=== PATIENT | female | born 1970 | race Caucasian/White ===

== ENCOUNTER 2016-09-22 12:44 | Inpatient (IN) | payer BC, MEDICAID ==
[~2016-09-22] VITALS: Ht 154.9 cm; Wt 103.0 kg
[~2016-09-22 12:44] MED LIST: ALBU17AE26 IH; ASPI325T2 PO; ESCI10TA PO; INSU100V9 SUBCUT; INSU10VI4 SUBCUT; INSULIN; LORA1TAB PO; METF-305 PO; OMEP40CA33 PO; SIMV40TA2 PO; TOP25 PO
[2016-09-22 12:51] VITALS: BP 115/67; PULSE 94; RESP 20; TEMP 98.2; O2SAT 97
[2016-09-22 14:28] LABS: BASOPHILS # (AUTO) 0.1 K/uL (0.0-0.2); EOSINOPHILS # (AUTO) 0.4 K/uL (0.0-0.4); EOSINOPHILS % (AUTO) 5.1 % (0.0-4.0); HEMATOCRIT 36.5 % (36-48); HEMOGLOBIN 12.7 g/dL (12.0-16.0); LYMPHOCYTES # (AUTO) 2.3 K/uL (1.0-5.5); MEAN CORPUSCULAR HEMOGLOBIN 30 pg (27-31); MEAN CORPUSCULAR HGB CONC 35 % (32-36); MEAN CORPUSCULAR VOLUME 85 fL (79.0-98.0); MONOCYTES # (AUTO) 0.6 K/uL (0.0-1.0); MONOCYTES % (AUTO) 6.6 % (1.7-9.3); NEUTROPHILS # (AUTO) 5.2 K/uL (1.8-7.7); NEUTROPHILS % (AUTO) 60.3 % (40.0-70.0); PLATELET COUNT (AUTO) 201 K/uL (130-430); RED CELL DISTRIBUTION WIDTH 12.8 % (9.0-15.0); WHITE BLOOD COUNT (AUTO) 8.6 K/uL (4.8-10.8)
[2016-09-22 14:29] LABS: CALCIUM 8.5 mg/dL (8.4-11.0); CREATININE 0.57 mg/dL (0.55-1.30)
[2016-09-22 14:33] LABS: ALBUMIN 3.1 g/dL (3.4-4.8); TOTAL BILIRUBIN 0.3 mg/dL (0.0-1.0); TOTAL PROTEIN, SERUM 6.8 g/dL (6.4-8.3)
[2016-09-22 14:46] LABS: INR 0.9 (0.8-1.2); PROTHROMBIN TIME 10.3 SECS (9.5-12.5)
[2016-09-22] MEDS ORDERED: ASPIRIN 81 MG TAB.CHEW PO ONE (17:45)
[2016-09-22 18:29] VITALS: BP 111/55; PULSE 90; RESP 18; TEMP 97; O2SAT 100
[2016-09-22 20:13] VITALS: BP 118/58; PULSE 90; RESP 17; TEMP 97.9; O2SAT 100
[2016-09-22] MEDS ORDERED: INSULIN GLARGINE 100 UNITS/ML 10 ML VIAL SUBCUT SCH (21:00)
[2016-09-23] VITALS (8 sets, daily range): BP systolic 92–114; BP diastolic 51–64; PULSE 84–101; RESP 16–20; TEMP 96.6–99; O2SAT 95–100
[2016-09-23] MEDS: ACETAMINOPHEN 650 MG/20.3 ML UDC PO PRN ×2 (01:56→08:05)
[2016-09-23] MEDS: DEXTROSE 50% JECT 50 ML DISP.SYRIN IVP PRN (06:21)
[2016-09-23] MEDS ORDERED: NS 500 ML IV ONE (07:00)
[2016-09-23] MEDS: ATORVASTATIN 20 MG TABLET PO SCH (08:06)
[2016-09-23] MEDS: OMEPRAZOLE 20 MG CAPSULE.DR (PriLOSEC) PO SCH (08:06)
[2016-09-23] MEDS: ASPIRIN 325 MG TABLET (ECOTRIN) PO SCH (08:06)
[2016-09-23] MEDS ORDERED: MORPHINE 4 MG/ML INJ. SYRINGE IVP PRN (08:15)
[2016-09-23] MEDS ORDERED: ACETAMINOPHEN 325 MG TABLET PO PRN (08:15)
[2016-09-23] MEDS ORDERED: MORPHINE 2 MG/ML INJ. SYRINGE IVP PRN (08:15)
[2016-09-23] MEDS ORDERED: ALBUTEROL SULFATE 0.083% 2.5 MG/3 ML VIAL.NEB INH PRN (08:15)
[2016-09-23] MEDS ORDERED: IPRATROPIUM BROM 0.5 MG/2.5 ML VIAL.NEB (ATROVENT) INH PRN (08:15)
[2016-09-23] MEDS ORDERED: LORazepam 1 MG TABLET PO ONE (09:15)
[2016-09-23] MEDS: ALBUTEROL SULFATE 0.083% 2.5 MG/3 ML VIAL.NEB INH SCH ×2 (10:53→19:40)
[2016-09-23] MEDS: IPRATROPIUM BROM 0.5 MG/2.5 ML VIAL.NEB (ATROVENT) INH SCH ×2 (10:53→19:40)
[2016-09-23] MEDS: INSULIN REGULAR, HUMAN 100 UNITS/ML, 10 ML VIAL (novoLIN R) SUBCUT PRN ×2 (11:14→16:55)
[2016-09-24] VITALS: BP 101/56; PULSE 94; RESP 18; TEMP 98.7; O2SAT 99
[2016-09-24] MEDS: INSULIN REGULAR, HUMAN 100 UNITS/ML, 10 ML VIAL (novoLIN R) SUBCUT PRN ×4 (00:18→17:24)
[2016-09-24 04:00] VITALS: BP 99/54; PULSE 96; RESP 18; TEMP 97.9; O2SAT 100
[2016-09-24] MEDS: DEXTROSE 50% JECT 50 ML DISP.SYRIN IVP PRN (05:54)
[2016-09-24] MEDS: IPRATROPIUM BROM 0.5 MG/2.5 ML VIAL.NEB (ATROVENT) INH SCH ×3 (07:11→15:22)
[2016-09-24] MEDS: ALBUTEROL SULFATE 0.083% 2.5 MG/3 ML VIAL.NEB INH SCH ×3 (07:11→15:22)
[2016-09-24 08:20] VITALS: BP 100/52; PULSE 93; RESP 19; TEMP 97.4; O2SAT 99
[2016-09-24] MEDS: OMEPRAZOLE 20 MG CAPSULE.DR (PriLOSEC) PO SCH (08:46)
[2016-09-24] MEDS: ASPIRIN 325 MG TABLET (ECOTRIN) PO SCH (08:46)
[2016-09-24] MEDS: ATORVASTATIN 20 MG TABLET PO SCH (08:46)
[2016-09-24] MEDS ORDERED: POLYETHYLENE GLYCOL 3350, 17 GM/ POWD.PACK PO ONE (13:30)
[2016-09-24 15:33] VITALS: BP 103/50; PULSE 102; RESP 20; TEMP 98.3; O2SAT 99
[2016-09-24 18:08] VITALS: BP 103/48; PULSE 106; RESP 18; TEMP 98.3; O2SAT 99
[2016-09-25] MEDS ORDERED: POLYETHYLENE GLYCOL 3350, 17 GM/ POWD.PACK PO SCH (09:00)
[2017-03-18] MEDS ORDERED: CYCL-10 PO (20:42)
[2017-03-18] MEDS ORDERED: PRO40 PO (20:42)
== END 2016-09-24 18:44 | disposition home or self-care (01) | DRG 66 ==
LOC: SED 12:44 → STU 17:49
PROVIDERS: ADMIT Internal Medicine Hospice and Palliative Medicine; ATTEND Internal Medicine Hospice and Palliative Medicine
DX: I63.9 Cerebral infarction, unspecified (principal); E11.9 Type 2 diabetes mellitus without complications; G35 Multiple sclerosis; I10 Essential (primary) hypertension; J45.909 Unspecified asthma, uncomplicated; K21.9 Gastro-esophageal reflux disease without esophagitis; Z88.8 Allergy status to other drugs, medicaments and biological substances; Z79.82 Long term (current) use of aspirin
CPT/HCPCS: 36415; 70450-TC; 70551; 71010; 80053; 80061; 82962; 83880; 84484; 85025; 85306; 85379; 85610-TC; 85651-TC; 85730-TC; 93005; 93880; 94640; 94760; 99285; J1815; J7040

== ENCOUNTER 2016-10-22 12:30 | Inpatient (IN) | payer BC, MEDICAID ==
[~2016-10-22] VITALS: Ht 154.9 cm; Wt 109.8 kg
[2016-10-22 12:34] VITALS: BP 154/79; PULSE 109; RESP 22; TEMP 97.9; O2SAT 97
--- NOTE | 2016-10-22 12:41 | NUR ---
Patient to ER bed 4 to gown for evaluation. Side rails up. Report given to CORDELL TRINIDAD.
--- NOTE | 2016-10-22 12:41 | NUR ---
Pt report received from AMOS Ulloa. Pt with SOB and coughing x 1 month but worse today. BBS clear, even, tachypea noted. Pt talks in short sentences with coughing. Pt also c/o chest pain and states that it is from the excessive coughing. SPO2 97% RA.
--- NOTE | 2016-10-22 12:50 | NUR ---
Dr. Juarez at bedside to assess pt.
--- NOTE | 2016-10-22 13:00 | NUR ---
# 20 gauge angiocath placed to RAC. Use of asceptic technique. Opsite placed over site. Blood return noted. Blood for lab drawn from site. Flushed with 10 cc of normal saline. No evidence of infiltration noted. Patient tolerated well.
[2016-10-22] MEDS ORDERED: KETOROLAC TROMETHAMINE 30 MG VIAL IVP ONE (13:15)
[2016-10-22] MEDS ORDERED: methylPREDNISolone SOD SUCC/PF 62.5 MG/ML VIAL IVP ONE (13:15)
[2016-10-22] MEDS ORDERED: IPRATROPIUM/ALBUTEROL SULFATE 3 ML AMPUL.NEB INH ONE ×3 (13:15→17:45)
[2016-10-22] MEDS ORDERED: NACL 0.9% 1,000 ML IV ONE ×2 (13:15→17:45)
[2016-10-22 13:27] LABS: BILIRUBIN,URINE NEGATIVE (NEGATIVE); BLOOD, URINE NEGATIVE (NEGATIVE); CLARITY/URINE SL HAZY (CLEAR); COLOR,URINE YELLOW (YELLOW); GLUCOSE,URINE 3+ (NEGATIVE); KETONES,URINE NEGATIVE (NEGATIVE); LEUKOCYTE ESTERASE ,URINE NEGATIVE (NEGATIVE); NITRITE, URINE NEGATIVE (NEGATIVE); PROTEIN URINE NEGATIVE (NEGATIVE); UROBILINOGEN,URINE 0.2 (0.2-1.0)
[2016-10-22 13:35] LABS: BACTERIA,URINE RARE /HPF (None Seen); RBC,URINE NONE SEEN /HPF (0-3); WBC,URINE 0-3 /HPF (0-3)
[2016-10-22 13:40] LABS: BASOPHILS % (AUTO) 0.5 % (0.0-2.0); EOSINOPHILS # (AUTO) 1.3 K/uL (0.0-0.4); HEMOGLOBIN 13.3 g/dL (12.0-16.0); LYMPHOCYTES # (AUTO) 1.8 K/uL (1.0-5.5); LYMPHOCYTES % (AUTO) 18.1 % (20.5-51.5); MEAN CORPUSCULAR HEMOGLOBIN 30 pg (27-31); MEAN CORPUSCULAR HGB CONC 34 % (32-36); MEAN CORPUSCULAR VOLUME 87 fL (79.0-98.0); MONOCYTES # (AUTO) 0.5 K/uL (0.0-1.0); MONOCYTES % (AUTO) 4.8 % (1.7-9.3); NEUTROPHILS # (AUTO) 6.3 K/uL (1.8-7.7); NEUTROPHILS % (AUTO) 63.6 % (40.0-70.0); PLATELET COUNT (AUTO) 201 K/uL (130-430); RED BLOOD CELL COUNT(AUTO) 4.49 MIL/uL (4.2-6.2); RED CELL DISTRIBUTION WIDTH 12.8 % (9.0-15.0); WHITE BLOOD COUNT (AUTO) 9.9 K/uL (4.8-10.8)
[2016-10-22 13:45] LABS: ANION GAP 6 (5-15); CALCIUM 8.6 mg/dL (8.4-11.0); CHLORIDE 102 mmol/L (98-107); CREATININE 0.63 mg/dL (0.55-1.30); GLUCOSE 298 mg/dL (70-99); POTASSIUM 4.1 mmol/L (3.5-5.1); SODIUM SERUM 138 mmol/L (136-145); UREA NITROGEN, BLOOD 14 mg/dL (8-21)
[2016-10-22 13:49] LABS: GFR AFRICAN AMERICAN 131 mL/min (>90)
[2016-10-22 13:54] LABS: ALANINE AMINOTRANSFERASE 12 U/L (12-78); ALBUMIN 3.4 g/dL (3.4-4.8); ASPARTATE AMINOTRANSFERASE 14 U/L (10-37); TOTAL BILIRUBIN 0.2 mg/dL (0.0-1.0); TOTAL PROTEIN, SERUM 7.3 g/dL (6.4-8.3)
[2016-10-22] MEDS ORDERED: MORPHINE SULFATE 10 MG/ML VIAL IVP ONE (16:15)
--- NOTE | 2016-10-22 16:53 | NUR ---
pt medicated per md order, allergies acknowledged. dr pina at bedside reassessing pt and discussing POC
--- NOTE | 2016-10-22 17:30 | NUR ---
Pt anxious with persistent cough. Dr. Juarez notified. RT at bedside to give breathing tx.
[2016-10-22] MEDS ORDERED: DIAZEPAM 10 MG/2 ML DISP.SYRIN IVP ONE (18:00)
[2016-10-22] MEDS ORDERED: IOHEXOL 350 mgI/mL, 150 ML INFUS..BTL IV ONE (18:04)
--- NOTE | 2016-10-22 18:20 | NUR ---
Pt resting quietly with eyes closed, even and non-labored respirations. SPO2 98% RA.
--- NOTE | 2016-10-22 18:40 | NUR ---
Pt to CT via stretcher.
--- NOTE | 2016-10-22 19:17 | NUR ---
Pt report given to AMOS Haley.
[2016-10-22] MEDS ORDERED: LIP10 PO (21:00)
[2016-10-22] MEDS ORDERED: FURO-150 PO (21:00)
[2016-10-22] MEDS ORDERED: ALBMDI INH (21:00)
[2016-10-22] MEDS ORDERED: ALBU8.5H8 INH (21:00)
--- NOTE | 2016-10-22 21:10 | NUR ---
Pt transferred to [facility] via gurney. no s/s IV infiltration or distress. Placed in bed 135. Report given to Renard. All care endorsed.
--- NOTE | 2016-10-22 21:23 | NUR ---
ADMISSION NOTE Received patient from ER via rdel under the care of Dr Plaza. Patient admitted with diagnosis of Asthma Exacerbation . Patient is awake, alert, oriented X 4. Patient oriented to hospital room, call light, toileting, pain management and safety-teach back done. Patient informed that her nurse will be Renard and that her room number is 119B. Call light within reach. Will monitor patient condition.
[2016-10-22 21:30] VITALS: BP 129/73; PULSE 94; RESP 18; RESP 20; TEMP 97.3; O2SAT 96
--- NOTE | 2016-10-22 21:30 | NUR ---
pt.arrival.pt.admitted.dyspnea upon excertion.o2 applied:2l/min via nasal cannulae.language:singaporean primary and pt's preferred language:pt.presents fluency greek.v/s assessed.values w/in normal limits:r/r:20bpm.call light placed w/in pt's reach.
--- NOTE | 2016-10-22 22:00 | NUR ---
pt.assessed.pt.presents stable status.breathing character:dyspnea,deep depth,tachypnea.o2 sat% assessed: pt.presents o2 sat%=96%.will provide food 2 the pt.blood glucose assessed:280mg/dl.call light placed w/in pt's reach.
[2016-10-22 22:39] VITALS: BP 129/73; PULSE 94; RESP 18; TEMP 97.3; O2SAT 98
--- NOTE | 2016-10-22 23:00 | NUR ---
pt.assessed.i inquired if the pt;s presented any request.pt.requested snacks.i have provided the pt's snacks. no other requests @this hour.breathing pattern calm.call light w/in pt's reach.
[2016-10-22] MEDS: INSULIN REGULAR, HUMAN 100 UNITS/ML, 10 ML VIAL (novoLIN R) SUBCUT PRN (23:51)
--- NOTE | 2016-10-23 | NUR ---
pt.assessed.pt.presents calm affect.i have re-established the iv access:location:rt.forearm. o2 sat% assessed:96%@2l/min via nasal cannulae.call light w/in pt's reach.
[2016-10-23] MEDS: ALBUTEROL SULFATE 0.083% 2.5 MG/3 ML VIAL.NEB INH SCH ×6 (00:06→19:14)
[2016-10-23] MEDS: IPRATROPIUM BROM 0.5 MG/2.5 ML VIAL.NEB (ATROVENT) INH SCH ×7 (00:07→19:14)
[2016-10-23 00:16] VITALS: BP 122/60; PULSE 96; RESP 19; TEMP 96.5; O2SAT 96
[2016-10-23] MEDS: methylPREDNISolone SOD SUCC/PF 62.5 MG/ML VIAL IVP SCH ×2 (00:50→05:27)
--- NOTE | 2016-10-23 02:00 | NUR ---
pt.assessed.pt.presents quiescent affect;calm,asleep.breathing pattern calm.no distress/discomfort manifested. call light w/in pt's reach.
[2016-10-23 02:54] VITALS: BP 122/60; PULSE 96
--- NOTE | 2016-10-23 03:00 | NUR ---
pt.presents coughing episodes.i inquired i pt.required hhn tx.pt.stated yes.i have called respiratory dept;apprised of the pt's status:breathing and possible hhn tx. call light w/in pt's reach.
[2016-10-23 03:38] VITALS: BP 118/63; PULSE 98; RESP 19; TEMP 96.5; O2SAT 97
--- NOTE | 2016-10-23 04:00 | NUR ---
pt.assessed.pt.presents quiescent affect;calm,asleep.o2 sat assessed:96%@2l/min via nc.v/s assessed. call light w/in pt's reach:breathing pattern presents dyspnea.
--- NOTE | 2016-10-23 05:47 | NUR ---
pt.assessed.blood glucose assessed:389mg/dl.solumedrol administered.pt.returned to somnolent state:02 sat% 96 %. no request @this hour.zackary light w/in pt's reach.
[2016-10-23] MEDS: INSULIN REGULAR, HUMAN 100 UNITS/ML, 10 ML VIAL (novoLIN R) SUBCUT PRN ×3 (06:18→18:31)
--- NOTE | 2016-10-23 06:31 | NUR ---
slab grinder presented me w/ the correct swab 4 the collection of the influenzae swab.i have collect the sample:and the mrsa;nares swab.i have administered insulin:8-units;regular per slidng scale.call light placed w/in pt's reach.
--- NOTE | 2016-10-23 08:00 | NUR ---
Patient is A/Ox4, ambulatory. Patient is SOB, relieved by breathing treatment. Iv on left arm, #22, SL. On O2-2l, satting in the mid 90s%. Instructed patient to use call light for needs; bed at lowest position, call light in place, will continue to monitor.
[2016-10-23] MEDS: cefTRIAXone 1 GM IVPB PREMIX 50 ML IV SCH (08:56)
--- NOTE | 2016-10-23 10:00 | NUR ---
Patient is resting, no signs of distress noted. Will continue to monitor.
[2016-10-23] MEDS: HYDROcodone/ACETAMIN 5-325 MG TAB (NORCO/ VICODIN) PO PRN ×2 (11:00→18:26)
[2016-10-23] MEDS: ATORVASTATIN 10 MG TABLET PO SCH (11:00)
[2016-10-23] MEDS: OMEPRAZOLE 20 MG CAPSULE.DR (PriLOSEC) PO SCH (11:01)
[2016-10-23] MEDS: FUROSEMIDE 20 MG TABLET PO SCH (11:01)
[2016-10-23] MEDS: INSULIN NPH/REGULAR 70-30, 100 UNITS/ML, 10 ML VIAL SUBCUT SCH ×2 (11:14→18:33)
--- NOTE | 2016-10-23 12:05 | NUR ---
Patient bs 417. Insulin is given subcut according to sliding scale.
[2016-10-23 12:32] VITALS: BP 130/89; PULSE 108; RESP 20; TEMP 98.6; O2SAT 100
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
[2016-10-23 14:13] VITALS: Ht 154.9 cm; Wt 109.8 kg
--- NOTE | 2016-10-23 14:48 | NUR ---
:Patient is resting, no signs of distress noted at this time.
[2016-10-23 16:41] VITALS: BP 101/50; PULSE 100; RESP 19; TEMP 98.7; O2SAT 100
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
--- NOTE | 2016-10-23 19:15 | NUR ---
Patient is c/o SOB. RT is ordered.
--- NOTE | 2016-10-23 19:55 | NUR ---
initial nursing notes: Patient is awake. Patient's IV access on the right forearm intact. Patient has shortness of breath when ambulating from bed to the bathroom. Patient is on 2L/min oxygen via nasal cannula.
[2016-10-23 20:13] VITALS: BP 104/53; PULSE 105; RESP 16; TEMP 97.2; O2SAT 98
[2016-10-23] MEDS ORDERED: guaiFENesin/D-METHORPHAN HB 118 ML SUGAR FREE PO PRN (20:30)
[2016-10-23] MEDS ORDERED: MORPHINE 2 MG/ML INJ. SYRINGE IVP PRN (20:30)
--- NOTE | 2016-10-23 21:55 | NUR ---
nursing rounds: Checked patient's blood sugar: 390. Insulin provided as ordered.
--- NOTE | 2016-10-23 23:55 | NUR ---
nursing rounds: Patient calmly resting in bed. Kept bed alarm on.
[2016-10-24] MEDS: INSULIN REGULAR, HUMAN 100 UNITS/ML, 10 ML VIAL (novoLIN R) SUBCUT PRN ×3 (00:54→11:20)
[2016-10-24 01:43] VITALS: BP 95/55; PULSE 94; RESP 18; TEMP 98; O2SAT 95
--- NOTE | 2016-10-24 01:55 | NUR ---
nursing rounds: Patient calmly resting in bed. Patient has no shortness of breath.
[2016-10-24] MEDS: HYDROcodone/ACETAMIN 5-325 MG TAB (NORCO/ VICODIN) PO PRN ×3 (03:08→21:54)
[2016-10-24 03:39] VITALS: BP 113/68; PULSE 91; RESP 18; TEMP 98.4; O2SAT 100
--- NOTE | 2016-10-24 03:55 | NUR ---
nursing rounds: Patient received pain medication. Patient currently asleep.
--- NOTE | 2016-10-24 05:55 | NUR ---
nursing rounds: Patient is asleep in bed. Patient has no respiratory distress.
[2016-10-24] MEDS: IPRATROPIUM BROM 0.5 MG/2.5 ML VIAL.NEB (ATROVENT) INH SCH ×6 (06:26→21:58)
[2016-10-24] MEDS: ALBUTEROL SULFATE 0.083% 2.5 MG/3 ML VIAL.NEB INH SCH ×6 (06:26→21:58)
[2016-10-24 06:41] LABS: CALCIUM 8.2 mg/dL (8.4-11.0); CREATININE 0.55 mg/dL (0.55-1.30); POTASSIUM 3.9 mmol/L (3.5-5.1); THYROID STIMULATING HORMONE 0.05 uIu/mL (0.34-4.82); TOTAL BILIRUBIN 0.2 mg/dL (0.0-1.0); TOTAL PROTEIN, SERUM 6.6 g/dL (6.4-8.3)
[2016-10-24] MEDS: INSULIN NPH/REGULAR 70-30, 100 UNITS/ML, 10 ML VIAL SUBCUT SCH ×2 (06:43→17:26)
[2016-10-24 06:53] LABS: BASOPHILS % (AUTO) 0.3 % (0.0-2.0); EOSINOPHILS # (AUTO) 0.2 K/uL (0.0-0.4); EOSINOPHILS % (AUTO) 1.7 % (0.0-4.0); HEMATOCRIT 35.2 % (36-48); HEMOGLOBIN 11.8 g/dL (12.0-16.0); LYMPHOCYTES # (AUTO) 2.7 K/uL (1.0-5.5); LYMPHOCYTES % (AUTO) 22.4 % (20.5-51.5); MEAN CORPUSCULAR HEMOGLOBIN 30 pg (27-31); MEAN CORPUSCULAR HGB CONC 34 % (32-36); MEAN CORPUSCULAR VOLUME 88 fL (79.0-98.0); MONOCYTES # (AUTO) 0.9 K/uL (0.0-1.0); MONOCYTES % (AUTO) 7.1 % (1.7-9.3); NEUTROPHILS # (AUTO) 8.4 K/uL (1.8-7.7); NEUTROPHILS % (AUTO) 68.5 % (40.0-70.0); PLATELET COUNT (AUTO) 181 K/uL (130-430); RED BLOOD CELL COUNT(AUTO) 3.99 MIL/uL (4.2-6.2); WHITE BLOOD COUNT (AUTO) 12.2 K/uL (4.8-10.8)
--- NOTE | 2016-10-24 07:42 | NUR ---
closing nursing notes: Patient is awake, alert and oriented X 4. Patient is in no acute respiratory distress. No episodes of fall and no injuries throughout the traffic sign supervisor. Provided nursing report to incoming morning shift nurse, AMOS Jha, at patient's bedside.
[2016-10-24 07:51] VITALS: BP 94/52; PULSE 96; RESP 18; TEMP 97.5; O2SAT 99
--- NOTE | 2016-10-24 08:00 | NUR ---
NOTE PT SITTING UP IN BED HAVING HER BREATHING TREATMENT AT THIS TIME. NO SOB/RESP DISTRESS OR PAIN/DISCOMFORT WAS NOTED AT THIS TIME. IV IN RIGHT HAND INTACT AND PATENT AT THIS TIME. CALL LIGHT WITHIN REACH.
[2016-10-24] MEDS: ATORVASTATIN 10 MG TABLET PO SCH (09:03)
[2016-10-24] MEDS: cefTRIAXone 1 GM IVPB PREMIX 50 ML IV SCH (09:03)
[2016-10-24] MEDS: OMEPRAZOLE 20 MG CAPSULE.DR (PriLOSEC) PO SCH (09:03)
[2016-10-24] MEDS: FUROSEMIDE 20 MG TABLET PO SCH (09:03)
--- NOTE | 2016-10-24 11:00 | NUR ---
NOTE PT AMBULATES TO RESTROOM FOR HYGIENE CARE AND TO VOID AT THIS TIME WITH STEADY GAIT. PT DOES GET OUT OF BREATH WHEN RETURNING TO BED AFTER AMBULATION TO RESTROOM. NO NEEDS NOTED AT THIS TIME. PT IS ON HER CELL PHONE WITH FAMILY FREQUENTLY. CALL LIGHT WITHIN REACH.
[2016-10-24 11:55] VITALS: BP 104/58; PULSE 87; RESP 18; TEMP 98.4; O2SAT 98
--- NOTE | 2016-10-24 14:00 | NUR ---
NOTE PT RESTING IN BED. PAIN IN RIBS WHENEVER PT HAS CONSTANT COUGHING. BREATHING TREATMENTS GIVEN SCHEDULED. DENIES ANY NEEDS AT THIS TIME. CALL LIGHT WITHIN REACH.
[2016-10-24] MEDS ORDERED: FAMOTIDINE 20 MG TABLET PO ONE (15:30)
[2016-10-24] MEDS ORDERED: methylPREDNISolone SOD SUCC 40 MG/ML VIAL IVP ONE (15:30)
--- NOTE | 2016-10-24 16:00 | NUR ---
NOTE PT WAS HAVING HARD TIME WITH HER BREATHING. DR BARRIGA WAS CALLED AND MEDICATIONS ORDERED AND CARRIED OUT AT THIS TIME. PT ALSO HAVING BREATHING TREATMENT AND PAIN MEDICATION WAS GIVEN. PT NOW RESTING IN BED AT THIS TIME. CALL LIGHT WITHIN REACH.
[2016-10-24 16:42] VITALS: BP 100/47; PULSE 100; RESP 18; TEMP 98; O2SAT 93
--- NOTE | 2016-10-24 18:25 | NUR ---
NOTE PT RESTING IN BED. DENIES ANY NEEDS AT THIS TIME. NO SOB/RESP DISTRESS OR PAIN/DISCOMFORT NOTED AT THIS TIME. PT WAS CHECKED ON Q1' AND PRN FOR NEEDS AND CARE. NO WHEEZING OR DIFFICULTY BREATHING NOTED. CALL LIGHT WITHIN REACH.
--- NOTE | 2016-10-24 19:45 | NUR ---
initial nursing notes: Patient is awake. Patient talking to visitors at patient's bedside. Patient is on 2L/min oxygen via nasal cannula.
[2016-10-24 20:11] VITALS: BP 112/66; PULSE 92; RESP 18; TEMP 98.7; O2SAT 96
--- NOTE | 2016-10-24 21:45 | NUR ---
nursing rounds: Patient will receive pain medication for rib pain 5/10 and will reassess patient in about an hour.
[2016-10-24] MEDS: FAMOTIDINE 20 MG TABLET PO SCH (21:57)
--- NOTE | 2016-10-24 23:00 | NUR ---
nursing rounds: Patient calmly resting in bed. Patient has no shortness of breath.
[2016-10-25] VITALS (8 sets, daily range): BP systolic 105–135; BP diastolic 55–81; PULSE 88–98; RESP 18–19; TEMP 97.4–98.6; O2SAT 96–100
[2016-10-25] MEDS: MONTELUKAST 10 MG TABLET PO SCH ×2 (00:06→17:20)
[2016-10-25] MEDS: INSULIN REGULAR, HUMAN 100 UNITS/ML, 10 ML VIAL (novoLIN R) SUBCUT PRN ×4 (00:11→16:56)
--- NOTE | 2016-10-25 01:00 | NUR ---
nursing rounds: Patient is asleep in bed. Patient has no respiratory distress.
--- NOTE | 2016-10-25 03:00 | NUR ---
nursing rounds: Patient is sleeping in bed. Kept bed alarm on.
--- NOTE | 2016-10-25 05:00 | NUR ---
nursing rounds: Patient is asleep in bed. Patient has no shortness of breath.
[2016-10-25] MEDS: ALBUTEROL SULFATE 0.083% 2.5 MG/3 ML VIAL.NEB INH SCH ×6 (05:06→20:42)
[2016-10-25] MEDS: IPRATROPIUM BROM 0.5 MG/2.5 ML VIAL.NEB (ATROVENT) INH SCH ×6 (05:07→20:42)
[2016-10-25] MEDS: INSULIN NPH/REGULAR 70-30, 100 UNITS/ML, 10 ML VIAL SUBCUT SCH ×2 (06:32→16:54)
--- NOTE | 2016-10-25 07:37 | NUR ---
closing nursing notes: Patient is awake, alert and oriented X 4. Patient is in no acute respiratory distress. No episodes of fall and no injuries throughout the obstetrics and gynecology professor. Provided nursing report to incoming morning shift nurse, AMOS Jha, at patient's bedside.
--- NOTE | 2016-10-25 08:00 | NUR ---
NOTE PT SITTING UP IN BED EATING HER BREAKFAST. NO SOB/RESP DISTRESS OR PAIN/DISCOMFORT WAS NOTED AT THIS TIME. PT DENIES ANY DIFFICULTY BREATHING AT THIS TIME. CALL LIGHT WITHIN REACH. O2 AT 2L/NC ON AT THIS TIME.
[2016-10-25] MEDS ORDERED: methylPREDNISolone SOD SUCC 40 MG/ML VIAL IVP SCH (09:00)
[2016-10-25] MEDS: FAMOTIDINE 20 MG TABLET PO SCH ×2 (09:08→21:59)
[2016-10-25] MEDS: ATORVASTATIN 10 MG TABLET PO SCH (09:08)
[2016-10-25] MEDS: FUROSEMIDE 20 MG TABLET PO SCH (09:09)
[2016-10-25] MEDS: OMEPRAZOLE 20 MG CAPSULE.DR (PriLOSEC) PO SCH (09:09)
[2016-10-25] MEDS: cefTRIAXone 1 GM IVPB PREMIX 50 ML IV SCH (09:09)
--- NOTE | 2016-10-25 12:00 | NUR ---
NOTE PT HAS BEEN UP AND AMBULATING IN ROOM AND TO RESTROOM WITH STEADY GAIT. PT STATES HER BREATHING IS ALOT BETTER TODAY AFTER SOLU MEDROL AND PEPCID WAS STARTED YESTERDAY. PT DENIES ANY NEEDS AT THIS TIME. CALL LIGHT WITHIN REACH.
--- NOTE | 2016-10-25 14:10 | NUR ---
NOTE PT RESTING IN BED. DENIES ANY NEEDS AT THIS TIME. PT AMBULATES IN ROOM AND HAS O2 AT 2L/NC AT THIS TIME. CALL LIGHT WITHIN REACH. NO PROBLEMS WITH BREATHING OR FEELING OF TIGHTNESS IN CHEST AT THIS TIME.
--- NOTE | 2016-10-25 15:56 | NUR ---
Nutrition Update Jas Scale 18 noted Pt was admitted with asthma exacerbation Diet: [facility] BMI: 45.7 kg/m2 RD to follow up per nutrition care standards.
--- NOTE | 2016-10-25 18:25 | NUR ---
NOTE PT RESTING IN BED. PT HAS HAD FAMILY VISITING THROUGHOUT THE SHIFT. NO NEEDS NOTED. NO SOB/RESP DISTRESS OR PAIN/DISCOMFORT NOTED AT THIS TIME. PT HAS O2 AT 2L/NC AT THIS TIME. CALL LIGHT WITHIN REACH. IVF'S SALINE LOCKED AT THIS TIME. NO NEEDS NOTED AT THIS TIME.
--- NOTE | 2016-10-25 22:15 | NUR ---
Patient alert history of DM omn ADA ccho po diet procedures explained / .
--- NOTE | 2016-10-26 | NUR ---
[place] tablet po given for general pain 12/01 & helpful , patient resting this hour .
[2016-10-26] MEDS: HYDROcodone/ACETAMIN 5-325 MG TAB (NORCO/ VICODIN) PO PRN (00:02)
[2016-10-26] MEDS: INSULIN REGULAR, HUMAN 100 UNITS/ML, 10 ML VIAL (novoLIN R) SUBCUT PRN (00:07)
--- NOTE | 2016-10-26 00:15 | NUR ---
BSG @ 310 mg dl 6 units of Regular insulin sub q. administer / .
[2016-10-26 03:33] VITALS: BP 126/76; PULSE 88; RESP 16; TEMP 97.7; O2SAT 97
[2016-10-26] MEDS: ALBUTEROL SULFATE 0.083% 2.5 MG/3 ML VIAL.NEB INH SCH ×2 (03:38→07:56)
[2016-10-26] MEDS: IPRATROPIUM BROM 0.5 MG/2.5 ML VIAL.NEB (ATROVENT) INH SCH ×2 (03:40→07:56)
--- NOTE | 2016-10-26 04:08 | NUR ---
Hourly Rounding patient alert & ambulatory skin dry warm / .
--- NOTE | 2016-10-26 04:12 | NUR ---
DR BROWNING here to see patient new orders obtained for solu medrol 30 mg ivp / .
--- NOTE | 2016-10-26 04:41 | NUR ---
Patient awake assist out of bed to rest room , ambulatory safety measures helpful / .
[2016-10-26] MEDS: INSULIN NPH/REGULAR 70-30, 100 UNITS/ML, 10 ML VIAL SUBCUT SCH (06:34)
--- NOTE | 2016-10-26 08:00 | NUR ---
OPENING NOTE: PATIENT IS RESTING COMFORTABLY IN BED. NO S.S OF DISTRESS OR SOB. PATIENT IS ALERT AND ORIENTED, ABLE TO EXPRESS NEEDS, AND ASK FOR ASSISTANCE. CALL LIGHT IN REACH, BED IN LOWEST POSITION, AND WILL CONTINUE TO MONITOR.
[2016-10-26 08:27] VITALS: BP 110/67; PULSE 84; RESP 20; TEMP 97.6; O2SAT 97
[2016-10-26] MEDS ORDERED: methylPREDNISolone SOD SUCC 40 MG/ML VIAL IVP SCH (09:00)
[2016-10-26] MEDS: ATORVASTATIN 10 MG TABLET PO SCH (09:29)
[2016-10-26] MEDS: FAMOTIDINE 20 MG TABLET PO SCH (09:29)
[2016-10-26] MEDS: OMEPRAZOLE 20 MG CAPSULE.DR (PriLOSEC) PO SCH (09:29)
[2016-10-26] MEDS: FUROSEMIDE 20 MG TABLET PO SCH (09:30)
[2016-10-26] MEDS: cefTRIAXone 1 GM IVPB PREMIX 50 ML IV SCH (09:30)
[2016-10-26] MEDS ORDERED: DOXY100T2 PO (09:33)
--- NOTE | 2016-10-26 09:49 | NUR ---
Blood Sugar patient stated she felt her sugar was low and asked if we could check it. blood sugar was 48. Dr. Obregon was in discharging the patient, he was made aware. He said to give her orange juice and cookies. Patient was given orange juice. patient also had not eaten breakfast yet, so she was going to eat it now. Will continue to monitor.
--- NOTE | 2016-10-26 10:30 | NUR ---
BLOOD SUGAR RECHECKED SUGAR AND IT WAS 177. PATIENT STABLE.
--- NOTE | 2016-10-26 12:00 | NUR ---
NOTE: PATIENT IS RESTING COMFORTABLY IN BED. NO S/S OF DISTRESS OR SOB. PATIENT IS ALERT AND ORIENTED, ABLE TO EXPRESS NEEDS, AND ASK FOR ASSISTANCE. CALL LIGHT IN REACH, BED IN LOWEST POSITION, AND WILL CONTINUE TO MONITOR.
[2016-10-26 12:27] VITALS: BP 107/65; PULSE 84; RESP 20; TEMP 97.6; O2SAT 97
--- NOTE | 2016-10-29 13:00 | NUR ---
Discharge Follow Up Phone Call [facility] phoned patient, . Patient was coughing and stated she did not feel any better. She feels somewhat sob and dizzy. She filled her prescription for doxycycline and is taking it as directed. She questioned why she did not get home O2. Patient has a follow up appointment with her PCP, Dr Sinclair, today at [address] will drive her. [facility] faxed the DC Summary and vital signs record (including pulse ox) for 10/26/[address] Sinclair, . Patient has been monitoring her blood sugar as directed and it seems to be stable. Patient has not made an appointment for mental health counseling as she has not felt well. [facility] will make another follow up call. Addendum: 10/31/16 at 1242 by Nicki Rouse LCSW Follow Up Call Late note from call 10/30/16. [employer] phoned patient. Patient stated she saw her PCP on 10/29/16 and was feeling much better. She was given a breathing treatment. She has another follow up appointment next week. [facility] encouraged patient to make her mental health/counseling appointment. Patient was concerned about the copayment she received from her prior hospital stay. [facility] encouraged her to phone the business office with her concerns. System Manager will remain available upon patient request.
[2017-03-18] MEDS ORDERED: CYCL-10 PO (20:42)
[2017-03-18] MEDS ORDERED: PRO40 PO (20:42)
[2017-03-18] MEDS ORDERED: INSU10VI4 SUBCUT (23:23)
== END 2016-10-26 13:20 | disposition home or self-care (01) | DRG 191 ==
LOC: SED 12:30 → SMU 20:43
DX: J44.1 Chronic obstructive pulmonary disease with (acute) exacerbation (principal); J45.901 Unspecified asthma with (acute) exacerbation; Z68.42 Body mass index [BMI] 45.0-49.9, adult; G81.91 Hemiplegia, unspecified affecting right dominant side; K21.9 Gastro-esophageal reflux disease without esophagitis; E78.00 Pure hypercholesterolemia, unspecified; E11.40 Type 2 diabetes mellitus with diabetic neuropathy, unspecified; E11.649 Type 2 diabetes mellitus with hypoglycemia without coma; Z98.51 Tubal ligation status; G89.29 Other chronic pain; I10 Essential (primary) hypertension; E66.8 Other obesity; E78.5 Hyperlipidemia, unspecified; Z79.4 Long term (current) use of insulin; Z82.62 Family history of osteoporosis; Z83.3 Family history of diabetes mellitus; Z88.8 Allergy status to other drugs, medicaments and biological substances; Z79.899 Other long term (current) drug therapy; Z88.6 Allergy status to analgesic agent; Z91.012 Allergy to eggs; Z86.73 Personal history of transient ischemic attack (TIA), and cerebral infarction without residual deficits
CPT/HCPCS: 36415; 71020-TC; 71275; 80053; 80061; 81000-TC; 82962; 83880; 84439; 84443-TC; 84484; 85025; 86710; 87081; 93005; 94640; 94760; 96361; 96365; 96375; 99285; J0696; J1030; J1815; J1885; J1956; J2270; J2930; J3360; J7030; J7050; Q9967

== ENCOUNTER 2016-12-16 23:22 | Emergency (ER) | payer BC ==
[2016-10-23 14:13] VITALS: Ht 154.9 cm; Wt 113.4 kg
[~2016-12-16] VITALS: Ht 154.9 cm; Wt 113.4 kg
[~2016-12-16 23:22] MED LIST changes: +ALBMDI INH; +ALBU8.5H8 INH; +DOXY100T2 PO; +FURO-150 PO; +LIP10 PO
[2016-12-16 23:30] VITALS: BP 144/97; PULSE 97; RESP 16; TEMP 98.6; O2SAT 98
--- NOTE | 2016-12-16 23:30 | NUR ---
Placed in room 08 . Placed on shelter monitor, blood pressure machine and pulse oximeter. To gown for exam. Side rails up. Report given to AMOS Silverio.
--- NOTE | 2016-12-16 23:40 | NUR ---
Pt states she has been having chronic L leg pain since july due to traumatic incident to coccyx. Pt states her L thigh that shoots down her leg and lower abd. Denies N/V. Pt states she has been constipated. Will continue to monitor. No other injuries or complaints mentioned/noted. No distress noted.
--- NOTE | 2016-12-16 23:50 | NUR ---
ER Dr. Doe at bedside examining patient.
[2016-12-17] MEDS ORDERED: KETOROLAC TROMETHAMINE 60 MG/2 ML VIAL IM ONE
[2016-12-17] MEDS ORDERED: MORPHINE 4 MG/ML INJ. SYRINGE IM ONE ×2 (00:45)
--- NOTE | 2016-12-17 02:00 | NUR ---
Pt medicated with [address] Doe orders for breakthrough pain.
[2016-12-17 03:06] VITALS: BP 140/97; PULSE 90; RESP 16; TEMP 98.6; O2SAT 98
--- NOTE | 2016-12-17 03:06 | NUR ---
Patient given written and verbal discharge instructions and verbalizes understanding. ER MD discussed with patient the results and treatment provided. Patient in stable condition. ID arm band removed. IV catheter removed intact and dressing applied, no active bleeding. Rx of Soma given. Patient educated on pain management and to follow up with PMD. Pain Scale 0/10. Opportunity for questions provided and answered.
[2016-12-18] MEDS ORDERED: ASPI-862 PO (13:03)
[2016-12-18] MEDS ORDERED: MOME13HF2 INH (13:03)
[2016-12-18] MEDS ORDERED: DOCU-144 PO (13:03)
[2016-12-18] MEDS ORDERED: HYDR-1189 PO (13:03)
[2016-12-18] MEDS ORDERED: BACL20TA PO (13:03)
[2016-12-18] MEDS ORDERED: LUBI24CA5 PO (13:03)
[2016-12-18] MEDS ORDERED: LISI-209 PO (13:03)
[2016-12-18] MEDS ORDERED: OMEP40CA33 PO (13:03)
[2016-12-18] MEDS ORDERED: TRAM50TA92 PO (13:03)
[2017-03-18] MEDS ORDERED: PRO40 PO (20:42)
[2017-03-18] MEDS ORDERED: CYCL-10 PO (20:42)
[2017-03-18] MEDS ORDERED: INSU10VI4 SUBCUT (23:23)
== END 2016-12-17 03:06 | disposition home or self-care (01) ==
LOC: SED 23:22
DX: M54.30 Sciatica, unspecified side (principal); E11.9 Type 2 diabetes mellitus without complications; I10 Essential (primary) hypertension; Z88.5 Allergy status to narcotic agent; Z88.8 Allergy status to other drugs, medicaments and biological substances; Z91.012 Allergy to eggs; Z79.4 Long term (current) use of insulin; Z90.710 Acquired absence of both cervix and uterus
CPT/HCPCS: 96372; 99284; J1885; J2270

== ENCOUNTER 2016-12-18 09:32 | Inpatient (IN) | payer OTHER, BC ==
[~2016-12-18] VITALS: Ht 154.9 cm; Wt 112.9 kg
[2016-12-18 09:39] VITALS: BP 156/89; PULSE 91; RESP 17; TEMP 97.9; O2SAT 99
--- NOTE | 2016-12-18 09:44 | NUR ---
Pt to bed 8 placed in gown for evaluation
--- NOTE | 2016-12-18 09:50 | NUR ---
Dr. Cortez at bedside for evaluation
[2016-12-18] MEDS ORDERED: ONDANSETRON HCL 4 MG/2 ML VIAL IVP ONE (10:00)
[2016-12-18] MEDS ORDERED: MORPHINE 2 MG/ML INJ. SYRINGE IVP ONE ×2 (10:00→12:15)
[2016-12-18 10:03] LABS: BILIRUBIN,URINE NEGATIVE (NEGATIVE); BLOOD, URINE NEGATIVE (NEGATIVE); CLARITY/URINE CLEAR (CLEAR); COLOR,URINE YELLOW (YELLOW); GLUCOSE,URINE 3+ (NEGATIVE); KETONES,URINE NEGATIVE (NEGATIVE); LEUKOCYTE ESTERASE ,URINE NEGATIVE (NEGATIVE); NITRITE, URINE NEGATIVE (NEGATIVE); PH,URINE 6.5 (5.0-8.0); PROTEIN URINE NEGATIVE (NEGATIVE); UROBILINOGEN,URINE 0.2 (0.2-1.0)
--- NOTE | 2016-12-18 10:10 | NUR ---
Patient AAOx4, crying, and rubbing left hip. Patient c/o hip pain 8/10, burning and radiating to left leg, buttock, and abdomen. Patient states pain "lasted about 2 weeks" and "got worse today." Patient denies any mechanism of injury. When asked about medications, patient states she has been on "steroids for asthma and bronchitis" and states she took a pain medication prior to arrival to ER. No other complaints or injuries per patient or noted.
[2016-12-18 10:11] LABS: BACTERIA,URINE FEW /HPF (None Seen); RBC,URINE 0-3 /HPF (0-3); WBC,URINE 0-3 /HPF (0-3)
[2016-12-18 10:12] LABS: YEAST,URINE Few /HPF (None Seen)
[2016-12-18 10:28] LABS: BASOPHILS % (AUTO) 0.5 % (0.0-2.0); EOSINOPHILS # (AUTO) 0.3 K/uL (0.0-0.4); EOSINOPHILS % (AUTO) 3.9 % (0.0-4.0); HEMATOCRIT 40.9 % (36-48); HEMOGLOBIN 13.8 g/dL (12.0-16.0); LYMPHOCYTES # (AUTO) 1.7 K/uL (1.0-5.5); LYMPHOCYTES % (AUTO) 24.2 % (20.5-51.5); MEAN CORPUSCULAR HEMOGLOBIN 29 pg (27-31); MEAN CORPUSCULAR HGB CONC 34 % (32-36); MEAN CORPUSCULAR VOLUME 85 fL (79.0-98.0); MONOCYTES # (AUTO) 0.4 K/uL (0.0-1.0); NEUTROPHILS # (AUTO) 4.8 K/uL (1.8-7.7); NEUTROPHILS % (AUTO) 65.4 % (40.0-70.0); PLATELET COUNT (AUTO) 245 K/uL (130-430); RED CELL DISTRIBUTION WIDTH 13.1 % (9.0-15.0); WHITE BLOOD COUNT (AUTO) 7.2 K/uL (4.8-10.8)
[2016-12-18 10:31] LABS: CALCIUM 8.2 mg/dL (8.4-11.0); CREATININE 0.75 mg/dL (0.55-1.30); POTASSIUM 4.2 mmol/L (3.5-5.1)
[2016-12-18 10:35] LABS: ALBUMIN 3.5 g/dL (3.4-4.8); TOTAL BILIRUBIN 0.4 mg/dL (0.0-1.0); TOTAL PROTEIN, SERUM 7.3 g/dL (6.4-8.3)
--- NOTE | 2016-12-18 11:30 | NUR ---
Patient ambulate to bathroom back to bed, steady gait. Will continue to monitor.
[2016-12-18] MEDS ORDERED: KETOROLAC TROMETHAMINE 30 MG VIAL IVP ONE (12:15)
[2016-12-18] MEDS ORDERED: LUBI24CA5 PO (13:03)
[2016-12-18] MEDS ORDERED: TRAM50TA92 PO (13:03)
[2016-12-18] MEDS ORDERED: HYDR-1189 PO (13:03)
[2016-12-18] MEDS ORDERED: DOCU-144 PO (13:03)
[2016-12-18] MEDS ORDERED: ASPI-862 PO (13:03)
[2016-12-18] MEDS ORDERED: LISI-209 PO (13:03)
[2016-12-18] MEDS ORDERED: MOME13HF2 INH (13:03)
[2016-12-18] MEDS ORDERED: OMEP40CA33 PO (13:03)
[2016-12-18] MEDS ORDERED: BACL20TA PO (13:03)
--- NOTE | 2016-12-18 13:03 | NUR ---
Medication reconciliation completed with information provided by RX bottles from patient. Any prior medication reconciliation on file was reviewed and corrected.
--- NOTE | 2016-12-18 13:04 | NUR ---
Patient's home medication sent to Pharmacy
--- NOTE | 2016-12-18 13:16 | NUR ---
Patient to be taken to MRI prior to admission to [facility].
--- NOTE | 2016-12-18 13:16 | NUR ---
Report given to Rubén TRINIDAD by Misty TRINIDAD over phone. EMT to take patient to [facility] when returns from MRI.
--- NOTE | 2016-12-18 13:17 | NUR ---
Patient to be taken to [facility] straight from MRI following procedure. Patient will be admitted to care of Dr. Plaza. [facility] Bel[facility]ings list completed. Summary report printed.
--- NOTE | 2016-12-18 13:17 | NUR ---
Off unit for MRI via wheelchair
--- NOTE | 2016-12-18 13:18 | NUR ---
Notes ED department nurse called to say patient will be taken to MRI and then transferred to MST unit.
--- NOTE | 2016-12-18 13:48 | NUR ---
CALLED PAIN MGMT CONSULT TO DR Dana COTE RE: INTTRACTABEL BACK PAIN. LEFT A VOICE MESSAGE
--- NOTE | 2016-12-18 14:10 | NUR ---
patient came from Mri department aaox 4. afebrile. vss stable. has saline lock rt ac #20. lots of pain on the left leg no skin breakdown but bit edematous. bed in low position. oriented to room number and call lights. safety measures maintained. informed to call for assistance.
--- NOTE | 2016-12-18 15:05 | NUR ---
CALLED ATTENDING MD DR Oj HANDY, RE: PAIN MEDS LOWER EXTREMITIES. SPOKE TO GREGORY
--- NOTE | 2016-12-18 15:22 | NUR ---
dr magallanes called but no order made, said called dr bennett
--- NOTE | 2016-12-18 16:32 | NUR ---
called Dr Plaza for pain medication. Dr Vargas never called back yet. pages x 4
[2016-12-18 16:57] VITALS: BP 111/56; PULSE 85; RESP 20; TEMP 97.8; O2SAT 98
--- NOTE | 2016-12-18 17:00 | NUR ---
informed [facility] Charge nurse regarding the Dr Carter not calling back.
[2016-12-18] MEDS: HYDROcodone/ACETAMIN 5-325 MG TAB (NORCO/ VICODIN) PO PRN (17:11)
--- NOTE | 2016-12-18 17:18 | NUR ---
PUT ANOTHER CALL T0 THE PAIN MGMT , DR Dana COTE. SPOKE TO KWESI
--- NOTE | 2016-12-18 18:30 | NUR ---
Dr Plaza came and see/evaluate the patient for pain. informed regarding the patients status.
[2016-12-18 18:46] VITALS: BP 123/74; PULSE 87; RESP 16; TEMP 97; O2SAT 97
--- NOTE | 2016-12-18 19:35 | NUR ---
sbar report given to incoming nurse Elio TRINIDAD
[2016-12-18] MEDS: BACLOFEN 10 MG TABLET PO SCH (20:27)
[2016-12-18] MEDS: DOCUSATE SODIUM 100 MG CAPSULE PO SCH (20:28)
--- NOTE | 2016-12-18 20:31 | NUR ---
Initial note A/O x 3, no SOB, no chest pain, c/o lower back pain and L knee pain, Balcofen PO given. Skin warm to touch, IV at R AC, patent. Clear lung sounds and active bowel sounds. No edema noted. Call light within reach, will continue to monitor patient.
[2016-12-18 20:33] VITALS: BP 91/58; PULSE 81; RESP 18; TEMP 97.8; O2SAT 97
[2016-12-18] MEDS ORDERED: ALBUTEROL MDI INHALATION 8 GM INH INH SCH ×2 (21:00)
[2016-12-18] MEDS ORDERED: INSULIN GLARGINE 100 UNITS/ML 10 ML VIAL SUBCUT SCH (21:00)
[2016-12-18 21:09] VITALS: PULSE 81
[2016-12-18] MEDS: MORPHINE 2 MG/ML INJ. SYRINGE IVP PRN (22:09)
--- NOTE | 2016-12-18 22:20 | NUR ---
Rounds and IV reinsertion A/O x 3, no SOB, no chest pain, c/o L knee pain, Morphine IVP given. Patient c/o IV at R AC discomfort when she moved her arm. Started a new IV at R FA #22 x 1 attempts with good blood return, DC old IV, IV catheter intact, patient tolerated whole procedure well. Call light within reach, will continue to monitor patient.
--- NOTE | 2016-12-19 00:09 | NUR ---
Rounds Sleeping in bed, no SOB, no chest pain, no grimacing. No s/s of hyper or hypoglycemia. Call light within reach, will continue to monitor patient.
[2016-12-19 00:12] VITALS: BP 109/55; PULSE 86; RESP 18; TEMP 98.9; O2SAT 94
[2016-12-19] MEDS: ALBUTEROL SULFATE 0.083% 2.5 MG/3 ML VIAL.NEB INH SCH ×4 (01:49→19:47)
--- NOTE | 2016-12-19 02:12 | NUR ---
Rounds Sleeping in bed, no SOB, no chest pain, no grimacing. No s/s of hyper or hypoglycemia. Call light within reach, will continue to monitor patient.
--- NOTE | 2016-12-19 04:18 | NUR ---
Rounds Sleeping in bed, no SOB, no chest pain, no grimacing. No s/s of hyper or hypoglycemia. Call light within reach, will continue to monitor patient.
[2016-12-19 05:50] VITALS: BP 115/61; PULSE 81; RESP 18; TEMP 98.4; O2SAT 95
[2016-12-19] MEDS: INSULIN NPH/REGULAR 70-30, 100 UNITS/ML, 10 ML VIAL SUBCUT SCH ×2 (06:05→17:53)
[2016-12-19] MEDS: MORPHINE 2 MG/ML INJ. SYRINGE IVP PRN ×3 (06:09→22:23)
--- NOTE | 2016-12-19 06:09 | NUR ---
Morphine IVP given for L hip pain 05/03.
--- NOTE | 2016-12-19 06:10 | NUR ---
Patient refused Insulin due to FBS 97.
--- NOTE | 2016-12-19 06:29 | NUR ---
Closing note Sleeping in bed, no SOB, no chest pain, no grimacing after Morphine IVP given. No s/s of hyper or hypoglycemia. Call light within reach, will give report to incoming nurse.
[2016-12-19] MEDS ORDERED: INSULIN Lispro Prot/Lispro MIX 75-25, 100 UNITS/ML, 10 ML VIAL SUBCUT SCH (07:00)
[2016-12-19 07:38] LABS: CALCIUM 8.1 mg/dL (8.4-11.0); CREATININE 0.58 mg/dL (0.55-1.30)
--- NOTE | 2016-12-19 07:40 | NUR ---
AM ROUNDS Pt A/Ox3, receiving breathing treatment at this time..Pt denies pain or discomfort at this time...IV pain medication received about one hour ago...Pt ambulates with steady gait...HL to RFA flushes well...Will cont to monitor
[2016-12-19] MEDS: FUROSEMIDE 20 MG TABLET PO SCH (09:10)
[2016-12-19] MEDS: ASPIRIN 325 MG TABLET (ECOTRIN) PO SCH (09:11)
[2016-12-19] MEDS: ATORVASTATIN 10 MG TABLET PO SCH (09:11)
[2016-12-19] MEDS: DOCUSATE SODIUM 100 MG CAPSULE PO SCH ×2 (09:11→21:36)
[2016-12-19] MEDS: OMEPRAZOLE 20 MG CAPSULE.DR (PriLOSEC) PO SCH (09:11)
[2016-12-19] MEDS: LISINOPRIL 5 MG TABLET PO SCH (09:11)
[2016-12-19] MEDS: BACLOFEN 10 MG TABLET PO SCH ×3 (09:11→21:36)
[2016-12-19] MEDS: LUBIPROSTONE 24 MCG CAPSULE PO SCH ×2 (09:12→17:50)
[2016-12-19] MEDS: HYDROcodone/ACETAMIN 5-325 MG TAB (NORCO/ VICODIN) PO PRN (09:21)
--- NOTE | 2016-12-19 09:25 | NUR ---
PT FEELS IF HER BS IS LOW PT C/O FEELING TINGLING FEELING ASKED IF BS CAN BE CHECKED....BS CHECKED..191.. PT APPEARED TO FEEL BETTER AFTER SEEING BS RESULTS...WILLL CONT TO MONITOR
--- NOTE | 2016-12-19 12:00 | NUR ---
ROUNDS PT STABLE...SITTING UP IN BED TALKING ON PHONE...WILL CONT TO MONITOR
[2016-12-19 12:20] VITALS: Ht 154.9 cm; Wt 112.9 kg
[2016-12-19 12:31] VITALS: BP 95/52; PULSE 91; RESP 16; TEMP 96; O2SAT 98
--- NOTE | 2016-12-19 14:42 | NUR ---
CALLED ATTENDING MD DR HANDY, RE: CLARIFICATION WHETHER TO DO DIABETIS SS OR NOT. SPOKE TO CALLY
--- NOTE | 2016-12-19 14:52 | NUR ---
CALLED PAIN MGMT MD DR Dana COTE, THAT WAS CONSULTED SINCE YESTERDAY TO REMIND HIM AGAIN OF THE CONSULT. SPOKE TO KWESI/DERICK.
[2016-12-19 16:44] VITALS: BP 119/58; PULSE 95; RESP 16; TEMP 97.1; O2SAT 97
--- NOTE | 2016-12-19 17:21 | NUR ---
ROUNDS PT STABLE...NO CHANGES...WILL CONT TO MONITOR
--- NOTE | 2016-12-19 19:12 | NUR ---
HOME MEDICATION THAT WAS IN PHARMACY WAS SENT HOME W/PTS
--- NOTE | 2016-12-19 19:25 | NUR ---
CHANGE OF SHIFT: pt. awake ,alert , with visitor at bedside. on room air,no shortness of breath. IV lock on right forearm. instructed to call and use of call light.
[2016-12-19 19:45] VITALS: BP 90/48; PULSE 78; RESP 20; TEMP 98.7; O2SAT 95
--- NOTE | 2016-12-19 21:45 | NUR ---
NOTES: schedule meds given and checked blood sugar. pt. up to restroom without assistance. starting to have back pain but med not due yet, informed will be back when it time. instructed on deep breathing and repositioning.
[2016-12-20] VITALS (7 sets, daily range): BP systolic 88–129; BP diastolic 47–76; PULSE 76–98; RESP 16–20; TEMP 97–98.6; O2SAT 95–98
[2016-12-20] MEDS: ALBUTEROL SULFATE 0.083% 2.5 MG/3 ML VIAL.NEB INH SCH ×4 (00:24→19:53)
--- NOTE | 2016-12-20 00:30 | NUR ---
ROUNDS: pt. sleeping when made rounds. in no acute distress.
--- NOTE | 2016-12-20 02:29 | NUR ---
ROUNDS: sound asleep when checked.
[2016-12-20] MEDS: MORPHINE 2 MG/ML INJ. SYRINGE IVP PRN ×3 (04:37→20:36)
--- NOTE | 2016-12-20 04:41 | NUR ---
NOTES: pt. medicated for c/o left lower back and left knee pain. repositioned self for comfort. needs attended. IV lock patent. no shortness of breath.
[2016-12-20] MEDS: INSULIN NPH/REGULAR 70-30, 100 UNITS/ML, 10 ML VIAL SUBCUT SCH ×2 (06:35→18:28)
[2016-12-20] MEDS: HYDROcodone/ACETAMIN 5-325 MG TAB (NORCO/ VICODIN) PO PRN ×2 (06:38→11:48)
--- NOTE | 2016-12-20 06:40 | NUR ---
CLOSING NOTES pt. still hurting on her left lower back and lrft knee, [place] given to alternate with Morphine. repositioned self, offered cold packs and refused. blood sugar checked, due insulin given. for further observation.
--- NOTE | 2016-12-20 07:20 | NUR ---
endorsed pt. to incoming shift with nurse Crabtree. pt. in the restroom on change of shift.
--- NOTE | 2016-12-20 08:00 | NUR ---
opening notes, received patient in bed, sitting on bed, patient is aaox4, no sob, no distress, c/o pain 03/02, told her she will be medicated when pain med is due. patient stated she had a bowel movement after 5 days. vitals wnl. call light in reach, bed in low position. will cont to monitor.
[2016-12-20] MEDS: LUBIPROSTONE 24 MCG CAPSULE PO SCH ×2 (08:13→18:22)
[2016-12-20] MEDS: ASPIRIN 325 MG TABLET (ECOTRIN) PO SCH (08:14)
[2016-12-20] MEDS: FUROSEMIDE 20 MG TABLET PO SCH (08:14)
[2016-12-20] MEDS: LISINOPRIL 5 MG TABLET PO SCH (08:14)
[2016-12-20] MEDS: OMEPRAZOLE 20 MG CAPSULE.DR (PriLOSEC) PO SCH (08:15)
[2016-12-20] MEDS: DOCUSATE SODIUM 100 MG CAPSULE PO SCH ×2 (08:15→20:25)
[2016-12-20] MEDS: BACLOFEN 10 MG TABLET PO SCH ×3 (08:15→20:24)
[2016-12-20] MEDS: ATORVASTATIN 10 MG TABLET PO SCH (08:15)
--- NOTE | 2016-12-20 10:05 | NUR ---
ROUNDING NOTES, PT IN BED, RESTING COMFORTABLY, CALL LIGHT IN REACH. BED IN LOW POSITION. WILL CONT TO MONITOR.
--- NOTE | 2016-12-20 11:49 | NUR ---
Blood Sugar = 64 pt's FS Blood sugar is 64, pt is alert and oriented c/o of little weakness and bit nauseated. pt given orange juice and crackers as pt is able to swallow. will monitor blood sugar. will inform md.
--- NOTE | 2016-12-20 12:50 | NUR ---
BLOOD SUGAR FINGER STICK BLOOD SUGAR IS 102
--- NOTE | 2016-12-20 14:00 | NUR ---
rounding notes, pt in bed, sleeping, callight inreach, bed in low position.
--- NOTE | 2016-12-20 16:00 | NUR ---
rounding notes, patine in bed, resting, aao, callight in reach, bed in low position. no sob, no distress. will continue to monitor.
[2016-12-20] MEDS: ONDANSETRON HCL 4 MG/2 ML VIAL IM PRN (16:03)
--- NOTE | 2016-12-20 18:38 | NUR ---
closing notes, pt in bed, spouse at bedside, pt came back from lobby after seeing her new grandson. FS BS = 235, pain level was 6/10 but sbp, explained to pt that this rn cannot give her pain medication shot as it can cause more drop in her bp. pt verbalized understanding. will endorse to night rn.
--- NOTE | 2016-12-20 19:30 | NUR ---
CHANGE OF SHIFT: pt. up in a chair with at bedside. starting to hurt on her left lower back, left thigh down to her left knee. will check VS first before pain med . pt. able to go restroom by herself. saline lock on right arm. call light within reach.
--- NOTE | 2016-12-20 20:30 | NUR ---
NOTES: vs checked and pain med given with Morphine as ordered. due meds and blood sugar done.needs attended.
[2016-12-21] VITALS (7 sets, daily range): BP systolic 100–142; BP diastolic 56–84; PULSE 82–103; RESP 16–20; TEMP 97.2–98.4; O2SAT 95–100
--- NOTE | 2016-12-21 00:15 | NUR ---
ROUNDS: sound asleep when checked.
[2016-12-21] MEDS: ALBUTEROL SULFATE 0.083% 2.5 MG/3 ML VIAL.NEB INH SCH ×4 (01:00→19:41)
[2016-12-21] MEDS: MORPHINE 2 MG/ML INJ. SYRINGE IVP PRN ×2 (03:44→09:33)
--- NOTE | 2016-12-21 03:50 | NUR ---
NOTES: pt. starts hurting again on her left lower back,left thigh/groin area down to her left knee after walking to the restroom and back to bed, medicated as ordered. needs attended. pt is hungry, snacks given.
--- NOTE | 2016-12-21 05:03 | NUR ---
ROUNDS: noted able to go back to sleep, with some pain relief.
--- NOTE | 2016-12-21 06:43 | NUR ---
CLOSING NOTES: pt. been resting, still with some discomfort on left lower back down to her left knee. needs attended. IV lock intact. blood sugar checked and due insulin given. for further observation.
--- NOTE | 2016-12-21 07:35 | NUR ---
NOTES: about to give pain med per pt. request but on breathing treatment, endorsed to incoming shift Marilia to give it after treatment.hold 70-30 Novolin insulin BS 94, informed pt. to eat breakfast first and will give after, endorsed to AMOS Capellan
--- NOTE | 2016-12-21 07:50 | NUR ---
INITIAL NOTE PT AWAKE, ALERT AND ORIENTED X4, RECEIVING BREATHING TREATMENT AT THIS TIME, VSS, NO S/S OF DISTRESS, COMPLAINS OF PAIN WILL FOLLOW UP WITH APPROPRIATE PAIN MEDICATION, BP NOTED TO BE 100/58, PER PT BP IS HER NORMAL. IV SITE TO RFA INTACT, PATIENT, SALINE LOCKED, PLAN OF CARE DISCUSSED PT VERBALIZED UNDERSTANDING, PT REORIENTED TO USE OF CALL LIGHT AND IT IS PLACED WITHIN REACH, SAFETY MEASURES IN PLACE, BED IN LOW POSITION AND LOCKED, WILL FOLLOW UP.
[2016-12-21] MEDS: ATORVASTATIN 10 MG TABLET PO SCH (08:28)
[2016-12-21] MEDS: DOCUSATE SODIUM 100 MG CAPSULE PO SCH ×2 (08:29→21:06)
[2016-12-21] MEDS: ASPIRIN 325 MG TABLET (ECOTRIN) PO SCH (08:29)
[2016-12-21] MEDS: FUROSEMIDE 20 MG TABLET PO SCH (08:30)
[2016-12-21] MEDS: OMEPRAZOLE 20 MG CAPSULE.DR (PriLOSEC) PO SCH (08:30)
[2016-12-21] MEDS: LUBIPROSTONE 24 MCG CAPSULE PO SCH ×2 (08:30→16:56)
[2016-12-21] MEDS: BACLOFEN 10 MG TABLET PO SCH ×3 (08:30→21:08)
[2016-12-21] MEDS: HYDROcodone/ACETAMIN 5-325 MG TAB (NORCO/ VICODIN) PO PRN (08:31)
[2016-12-21] MEDS: LISINOPRIL 5 MG TABLET PO SCH (09:26)
[2016-12-21] MEDS: INSULIN NPH/REGULAR 70-30, 100 UNITS/ML, 10 ML VIAL SUBCUT SCH ×2 (09:28→17:03)
--- NOTE | 2016-12-21 09:37 | NUR ---
CALLED AGAIN THE PAIN MGMT CONSULT TO DR Dana COTE, RE: INTRACTABLE BACK PAIN. CONSULT WAS PUT IN LAST THURSDAY, 12/18, 3 DAYS AGO. SPOKE TO JUAN
--- NOTE | 2016-12-21 09:47 | NUR ---
DR COTE CALLED BACK REGARDING PAIN CONSULT, Addendum: 12/21/16 at 1018 by Marilia Morales RN DR COTE UPDATED ON PATIENTS HISTORY, PREVIOUS FALL, MD ORDERED CONSULT FOR FLIGHT TEST MECHANIC TO FOLLOW UP ON HX OF FALL ON VAGINA LEADING TO INTRACTABLE RADIATING PAIN TO BACK, SACRUM, AND LEGS. ORDERED INCREASE IN PAIN MEDICATION, ORDER TO HOLD MORPHINE IF BP SYSTOLIC BELOW 90. PT MADE AWARE OF CHANGE, PT VERBALIZED UNDERSTANDING, WILL FOLLOW UP
--- NOTE | 2016-12-21 11:16 | NUR ---
CALLED BACK TENDER [facility] CONSULT ORDERED BY DR Dana COTE, TO DR HAIDER Santana, DR Fely AQUINO CHIEF SECURITY AND SAFETY OFFICER RE: FALL ON VAGINA. SPOKE TO LIZANDRO
[2016-12-21] MEDS: ONDANSETRON HCL 4 MG/2 ML VIAL IM PRN (11:39)
--- NOTE | 2016-12-21 12:00 | NUR ---
ROUNDS PT SITTING IN BED, FAMILY AT BEDSIDE, APPEARS TO BE IN GOOD SPIRITS, PT STATES SHE HAS NO NEEDS AT THIS TIME, CALL LIGHT WITHIN REACH, SAFETY MEASURES IN PLACE, WILL FOLLOW UP
[2016-12-21] MEDS: MORPHINE 4 MG/ML INJ. SYRINGE IVP PRN ×2 (14:20→23:04)
--- NOTE | 2016-12-21 14:20 | NUR ---
PAIN MANAGEMENT PT COMPLAINS OF PAIN 9/10 TO BOTTOM, RADIATING TO BACK AND LEGS. WILL ADMINISTER APPROPRIATE PAIN MEDICATION AND FOLLOW UP. FAMILY AT BEDSIDE, CALL LIGHT WITHIN REACH, SAFETY MEASURES IN PLACE.
--- NOTE | 2016-12-21 16:24 | NUR ---
ROUNDS PT RESTING, EVEN RISE AND FALL OF CHEST NOTED, NO S/S OF DISTRESS OR PAIN, SAFETY MEASURES IN PLACE, CALL LIGHT WITHIN REACH, BED IN LOW POSITION AND LOCKED, AT BEDSIDE, WILL FOLLOW UP
--- NOTE | 2016-12-21 18:34 | NUR ---
CLOSING NOTE PT RESTING, EASY TO AROUSE, NO S/S OF DISTRESS OR COMPLAINT OF INTOLERABLE PAIN AT THIS TIME, VSS, IV TO RFA INTACT, NO S/S OF INFILTRATION NOTED, ALL NEEDS ATTENDED TO THROUGH OUT SHIFT, SAFETY MEASURES MAINTAINED, CALL LIGHT WITHIN REACH, BED IN LOW POSITION AND LOCKED, WILL GIVE REPORT TO FOLLOWING SHIFT.
--- NOTE | 2016-12-21 19:10 | NUR ---
DAKOTAH OLPEZ TALKED TO PATIENT AT BEDSIDE
--- NOTE | 2016-12-21 19:15 | NUR ---
INITIAL NOTE Patient resting on the bed. Respiration even and unlabored. No acute distress. Denied of pain. AO x 4. Skin warm and dry to touch. SL intact to RFA, no redness, no swelling. at bedside. Discussed the safety issue, use call light when needs help, and plan of care, verbally understanding. Safety measure maintained. Call light within reached. Bed in low position, side rails up. Noted bed alarm not on at this time. Explained the purpose to place bed alarm on, patient verbally understanding and agree to put bed alarm on when go to sleep. Will continue to monitor.
--- NOTE | 2016-12-21 20:15 | NUR ---
ASSISTED PATIENT TO HAVE A SHOWER PER PATIENT REQUESTED Assisted to have a shower. Patient ambulated with steady gait. Waited outside of the shower room with half door open.
--- NOTE | 2016-12-21 21:35 | NUR ---
ROUND Patient resting on the bed and watching TV. No acute distress. Safety measure maintained. Call light within reached. Continue to monitor.
--- NOTE | 2016-12-21 23:09 | NUR ---
MORPHINE GIVEN Patient c/o pain 05/03 on sacrum area. No acute distress. Safety measure maintained. Bed in low position, side rails up. Call light within reached. Explained to patient the importance of bed alarm on, patient with history of fall, and Morphine just give. However, patient still refused at this time. Patient stated "I will call you when I need help, my be put alarm on when I sleep. I felt because the floor was wet. I am okay now." Will continue to monitor.
[2016-12-22] MEDS: ALBUTEROL SULFATE 0.083% 2.5 MG/3 ML VIAL.NEB INH SCH ×4 (00:08→19:46)
[2016-12-22 00:29] VITALS: BP 97/57; PULSE 90; RESP 18; TEMP 97.8; O2SAT 100
[2016-12-22] MEDS: HYDROcodone/ACETAMIN 10-325 MG TAB PO PRN (01:22)
--- NOTE | 2016-12-22 01:24 | NUR ---
NORCO GIVEN Patient c/o pain 01/31 after went to bathroom. No acute distress. [place] 10/325mg 1 tab PO given as ordered. Safety measure maintained. Bed in low position, side rails up. Call light within reached. Continue to monitor.
--- NOTE | 2016-12-22 03:40 | NUR ---
ROUND Patient resting on the bed with eye closed. Respiration even and unlabored. No acute distress. Call light within reached. Bed in low position, side rails up. Continue to monitor.
[2016-12-22 04:09] VITALS: BP 93/53; PULSE 84; RESP 14; TEMP 98.2; O2SAT 93
--- NOTE | 2016-12-22 05:24 | NUR ---
ROUND Patient resting on the bed with eyes closed. No acute distress. Respiration even and unlabored. Safety measure maintained. Bed in low position, side rails up. Call light within reached. Continue to monitor,
--- NOTE | 2016-12-22 06:30 | NUR ---
CLOSING NOTE Patient resting on the bed. Respiration even and unlabored. No acute distress. Skin warm and dry to touch. SL intact to RFA, no redness, no swelling. All needs met. Hourly rounding during shift. Safety measure maintained. Call light within reached. Bed in low position, side rails up. Will endorse to morning shift nurse.
[2016-12-22] MEDS: MORPHINE 4 MG/ML INJ. SYRINGE IVP PRN ×3 (06:50→22:43)
--- NOTE | 2016-12-22 07:02 | NUR ---
CALLED DAKOTAH LOPEZ Informed Bola Reeves, patient PO=[phone] this morning with Insulin 70/30 20 units, last night CE=253 Levemir insulin 34 units given. In the middle of the night, patient requested juice, 120ml of orange juice and 120ml of apple juice give. Asked if doctor want to have any parameter. stated "Just give the regular dose patient usual to get."
[2016-12-22] MEDS: INSULIN NPH/REGULAR 70-30, 100 UNITS/ML, 10 ML VIAL SUBCUT SCH ×2 (07:08→18:59)
--- NOTE | 2016-12-22 08:00 | NUR ---
OPENING NOTES, RECEIVED PT IN BED, DENIES PAIN. PT IS ALERT AND ORIENTED, NO SOB, NO DISTRESS. CALL LIGHT IN REACH, BED IN LOW POSITION.
[2016-12-22 08:09] VITALS: BP 104/59; PULSE 84; RESP 18; TEMP 97.1; O2SAT 98
[2016-12-22] MEDS: DOCUSATE SODIUM 100 MG CAPSULE PO SCH ×2 (08:33→21:33)
[2016-12-22] MEDS: BACLOFEN 10 MG TABLET PO SCH ×3 (08:35→21:33)
[2016-12-22] MEDS: OMEPRAZOLE 20 MG CAPSULE.DR (PriLOSEC) PO SCH (08:35)
[2016-12-22] MEDS: ATORVASTATIN 10 MG TABLET PO SCH (08:35)
[2016-12-22] MEDS: FUROSEMIDE 20 MG TABLET PO SCH (08:35)
[2016-12-22] MEDS: ASPIRIN 325 MG TABLET (ECOTRIN) PO SCH (08:35)
[2016-12-22] MEDS: LUBIPROSTONE 24 MCG CAPSULE PO SCH ×2 (08:35→18:55)
[2016-12-22] MEDS: LISINOPRIL 5 MG TABLET PO SCH (08:37)
[2016-12-22] MEDS ORDERED: MILK OF MAGNESIA 30 ML UDC PO PRN (09:15)
--- NOTE | 2016-12-22 10:00 | NUR ---
ROUNDING NOTES, PT IN BED, RESTING COMFORTABLY. CALL LIGHT IN REACH. BED IN LOW POSITION. WILL CONTINUE TO MONITOR.
[2016-12-22] MEDS: ONDANSETRON HCL 4 MG/2 ML VIAL IM PRN (10:24)
--- NOTE | 2016-12-22 10:24 | NUR ---
PATIENT GIVEN ZOFRAN PT VOMITED BILE COLORED EMESIS > 500 CC. GIVEN ZOFRAN. WILL CONT TO MONITOR.
--- NOTE | 2016-12-22 11:39 | NUR ---
FS BS = 48 FS BS = 48, PT IS ALERT AND ORIENT C/O WEAKNESS AND BLURRED VISION, PT ABLE TO SWALLOW, GIVEN ORANGE JUICE, WILL INFORM MD. WILL CONT TO MONITOR.
[2016-12-22] MEDS ORDERED: GLUCOSE 15 GM GEL (in 37.5 GM TUBE) ONE (11:52)
--- NOTE | 2016-12-22 12:06 | NUR ---
BS = 79 PT'S BLOOD SUGAR NOW IS 79, PATIENT GIVEN GLUCOSE GEL BUT AFTER TASTING IT PT REFUSED TO FINISH THE DOSE BECAUSE IT MAKES HER NAUSEATED AND FEEL LIKE VOMITING WITH IT. GIVEN ANOTHER ORANGE JUICE. WILL CONT TO MONITOR
[2016-12-22 12:12] VITALS: BP 109/81; PULSE 83; RESP 20; TEMP 97.7; O2SAT 99
--- NOTE | 2016-12-22 14:00 | NUR ---
ROUNDING NOTES, PT IN BED, NO C/O PAIN NO SOB, NO DISTRESS. SAFETY PRECAUTION IN BED.CALL LIGHT IN REACH, BED IN LOW POSITION. WILL CONTINUE TO MONITOR.
--- NOTE | 2016-12-22 16:00 | NUR ---
ROUNDING NOTES PT IN BED, NO C/O PAIN NO SOB, NO DISTRESS. SAFETY PRECAUTION IN BED.CALL LIGHT IN REACH, BED IN LOW POSITION. WILL CONTINUE TO MONITOR.
[2016-12-22 16:18] VITALS: BP 107/72; PULSE 76; RESP 18; TEMP 98; O2SAT 99
--- NOTE | 2016-12-22 17:47 | NUR ---
CONSULT F/U FALL ON VAGINA DR AQUINO [phone] S/W JOS EXCHANGE @ [phone]
--- NOTE | 2016-12-22 18:00 | NUR ---
ROUNDING NOTES, PT IN BED, NO C/O PAIN NO SOB, NO DISTRESS. CALL LIGHT IN REACH, BED IN LOW POSITION. WILL CONTINUE TO MONITOR.
--- NOTE | 2016-12-22 19:00 | NUR ---
CLOSING NOTES, PT SITING IN CHAIR, NO SOB, NO DISTRESS, DENIES PAIN THIS TIME. ALL MEDS OFFERED AND TAKEN BY PT. WILL ENDORSE TO NIGHT RN.
[2016-12-22 19:58] VITALS: BP 113/59; PULSE 94; RESP 18; TEMP 98.5; O2SAT 100
--- NOTE | 2016-12-22 20:11 | NUR ---
Initial note A/O x 3, no SOB, no chest pain, c/o back and L groin to L knee and vagina pain /, stated will take pain med later, not now. Skin warm to touch, no skin breakdown. IV at R FA, patent. Vagina assessed, no abnormal outside, patient stated it hurts inside. changed whole bed linen, assisted patient back to bed. No s/s of hyper or hypoglycemia. Call light within reach. Patient wanted bed to bed a little high, instructed patient fall precaution and call for help. Will continue to monitor patient.
--- NOTE | 2016-12-22 20:30 | NUR ---
PAGED PAGED SUMAN HERRERA AT [phone] SPOKE WITH CALLY.
--- NOTE | 2016-12-22 20:30 | NUR ---
Dr. Goddard called back and stated he will f/u with this patient either tonight or tomorrow morning.
--- NOTE | 2016-12-22 22:48 | NUR ---
Rounds and IV reinsertion A/O x 3, no SOB, no chest pain, c/o back pain 04/02, Morphine IVP given. C/o old IV at R FA was some discomfort when flushing. Started a new IV at R FA with #22 x 1 attempts, good blood return; DC old IV, IV catheter intact. Patient tolerated whole procedure well. Skin warm to touch, no skin breakdown. No s/s of hyper or hypoglycemia. Call light within reach. Patient wanted bed to bed a little high, instructed patient fall precaution and call for help. Will continue to monitor patient.
--- NOTE | 2016-12-23 | NUR ---
Rounds A/O x 3, no SOB, no chest pain, pain 3/10 after Morphine IVP given. Patient went to bathroom for BM, instructed patient to call for assistance. Skin warm to touch, no skin breakdown. No s/s of hyper or hypoglycemia. Call light within reach. Patient wanted bed to bed a little high, instructed patient fall precaution and call for help. Will continue to monitor patient.
[2016-12-23] MEDS: ALBUTEROL SULFATE 0.083% 2.5 MG/3 ML VIAL.NEB INH SCH ×4 (01:00→19:00)
[2016-12-23 01:19] VITALS: BP 120/60; PULSE 108; RESP 16; TEMP 99.4; O2SAT 94
--- NOTE | 2016-12-23 02:04 | NUR ---
Rounds Sleeping in bed, no SOB, no chest pain, no grimacing. No s/s of hyperglycemia or hypoglycemia. Call light within reach. Will continue to monitor patient.
[2016-12-23 04:02] VITALS: BP 126/66; PULSE 103; RESP 16; TEMP 97.8; O2SAT 96
[2016-12-23] MEDS: MORPHINE 4 MG/ML INJ. SYRINGE IVP PRN ×4 (04:17→21:12)
--- NOTE | 2016-12-23 04:23 | NUR ---
Rounds Awake in bed, no SOB, no chest pain, c/o L back pain 10/10, Morphine IVP given. No s/s of hyperglycemia or hypoglycemia. Call light within reach. Will continue to monitor patient.
--- NOTE | 2016-12-23 05:02 | NUR ---
Reassessed pain after Morphine IVP given Patient is sleeping, no grimacing. Call light within reach, will continue to monitor patient.
[2016-12-23] MEDS: INSULIN NPH/REGULAR 70-30, 100 UNITS/ML, 10 ML VIAL SUBCUT SCH ×2 (06:53→18:20)
--- NOTE | 2016-12-23 06:59 | NUR ---
Closing note Awake in bed, no SOB, no chest pain, pain 3/10, patient is aware she can get Morphine every 4 hours as needed for severe pain. Blood sugar 180, Novolin 70/30 given, no s/s of hyperglycemia or hypoglycemia. Call light within reach. Will give report to incoming nurse.
--- NOTE | 2016-12-23 08:00 | NUR ---
OPENING NOTES. PT IN BED, PATIENT IS A/O x 3, NO SOB, NO CHEST PAIN. COMPLAIN OF 5-6 PAIN LEVEL BUT STATED SHE WILL TAKE PAIN MED LATER BECAUSE SHE IS EATING AND DON'T WANT TO VOMIT. CALL LIGHT IN REACH, BED IN LOW POSITION. WILL CONT TO MONITOR.
[2016-12-23 08:03] VITALS: BP 110/68; PULSE 97; RESP 16; TEMP 97; O2SAT 99
[2016-12-23] MEDS: LUBIPROSTONE 24 MCG CAPSULE PO SCH ×2 (08:29→18:17)
[2016-12-23] MEDS: BACLOFEN 10 MG TABLET PO SCH ×3 (08:29→21:06)
[2016-12-23] MEDS: OMEPRAZOLE 20 MG CAPSULE.DR (PriLOSEC) PO SCH (08:30)
[2016-12-23] MEDS: DOCUSATE SODIUM 100 MG CAPSULE PO SCH ×2 (08:30→21:06)
[2016-12-23] MEDS: ATORVASTATIN 10 MG TABLET PO SCH (08:30)
[2016-12-23] MEDS: ASPIRIN 325 MG TABLET (ECOTRIN) PO SCH (08:30)
[2016-12-23] MEDS: FUROSEMIDE 20 MG TABLET PO SCH (08:31)
[2016-12-23] MEDS: LISINOPRIL 5 MG TABLET PO SCH (08:32)
--- NOTE | 2016-12-23 10:14 | NUR ---
ROUNDING NOTES, PATIENT IN BED, RESTING COMFORTABLY, DENIES PAIN, STATED SHE WANTED TO SLEEP. CALL LIGHT IN REACH, BED IN LOW POSITION.
--- NOTE | 2016-12-23 11:10 | NUR ---
PT NOTES WENT TO SEE PATIENT AT 0900 WITH NURSING PRESENT, CAMILO. PT C/O 06/02 PAIN IN LUMBAR AREA AND WAITING FOR PAIN MEDICATION. RETURNED TO PATIENT AT 0955, AND VT REFUSE THERAPY DUE TO DIZZINESS. PT STATES, " I FEEL DIZZY AND TIRED FROM PAIN MEDICATION." DISCUSSED WITH PATIENT TO SEE IF SHE CAN PARTICIPATE LATER IN MORNING. RETURNED BACK TO PATIENT AT 1100, AND PT REFUSED THERAPY AGAIN DUE TO STILL FEELING DIZZY AND FATIGUED. PT WANTED TO REFUSE THERAPY TODAY AND TRY TOMORROW. EDUCATED PT THE IMPORTANCE/BENEFITS OF OOB ACTIVITY AND TO PERFORM PHYSICAL THERAPY WITH PATIENT HAVING A GOOD UNDERSTANDING. DISCUSSED SITUATION WITH NURSINGCAMILO. PVE(2) Addendum: 12/23/16 at 1315 by Natali Rehman PT PHYSICAL THERAPY CO-SIGN The Physical Therapy Progress Notes documented by Devulcanizer Loader have been reviewed. Reviewed/Co-Signed by: Natali Rehman PT Documentation Done by: Rex Peñaloza, CELLAR PACKER
[2016-12-23 11:35] VITALS: BP 112/62; PULSE 84; RESP 20; TEMP 98.3; O2SAT 99
--- NOTE | 2016-12-23 12:00 | NUR ---
ROUNDING NOTES, PT IN BED, DENIES PAIN THIS TIME, NO SOB, NO DISTRESS, CALL LIGHT IN REACH, BED IN LOW POSITION. INSTRUCTED TO CALL FOR PAIN MEDICATIONS OR ASSISTANCE.
--- NOTE | 2016-12-23 14:00 | NUR ---
ROUNDING NOTES, PT IN BED, PT RESTING COMFORTABLY IN BED, NO S/SX PAIN, NO DISTRESS. CALL LIGHT IN REACH, BED IN LOW POSITION. WILL CONTINUE TO MONITOR.
[2016-12-23] MEDS: HYDROcodone/ACETAMIN 10-325 MG TAB PO PRN (14:59)
--- NOTE | 2016-12-23 16:00 | NUR ---
ROUNDING NOTES, PT IN BED, PT RESTING COMFORTABLY IN BED, NO S/SX PAIN, NO DISTRESS. CALL LIGHT IN REACH, BED IN LOW POSITION. WILL CONTINUE TO MONITORING PATIENT.
[2016-12-23 16:49] VITALS: BP 109/64; PULSE 80; RESP 20; TEMP 98; O2SAT 99
--- NOTE | 2016-12-23 18:20 | NUR ---
CLOSING NOTES, PT IN BED, FAMILY AT BEDSIDE, NO C/O PAIN, NO DISTRESS, NO SOB. PT STILL WAITING FOR DR AQUINO TO SEE THE PT. TOLD HER THAT MD WILL COME TONIGHT HE TOLD THE NIGHT NURSE. CALL LIGHT IN REACH, BED IN LOW POSITION. WILL ENDORSE TO NIGHT RN.
[2016-12-23] MEDS: ONDANSETRON HCL 4 MG/2 ML VIAL IM PRN (18:22)
--- NOTE | 2016-12-23 19:30 | NUR ---
Initial Notes Pt is A/Ox4. Pt is pleasant and cooperative. Pt c/o pain to coccyx area that radiates to pelvic and left leg. Will check for pain medications. Pt asked if Dr Goddard was coming in, will check. No acute distress noted or sob. Pt noted to walk to restroom without difficulty. Pt asked to shower tonight, will assist. Plan of care discussed with pt, pt verbalized understanding. VSS. IV intact. Safety measure in place, side rails up x2, with bed in lowest, locked position. Pt educated mohs surgeon light, and correct back demonstration noted. All needs met at this time. Will continue to monitor.
[2016-12-23 19:40] VITALS: BP 130/55; PULSE 83; RESP 18; TEMP 97.8; O2SAT 97
--- NOTE | 2016-12-23 19:40 | NUR ---
MD Goddard with pt MD Goddard examining patient at bedside.
--- NOTE | 2016-12-23 23:19 | NUR ---
Rounds Pt is resting comfortable in bad. No acute distress noted. Pt states pain is a lot better. All needs met. Call light in hand. Will continue to monitor.
[2016-12-24] VITALS (8 sets, daily range): BP systolic 98–142; BP diastolic 52–83; PULSE 83–104; RESP 16–18; TEMP 97.6–98.8; O2SAT 94–97
--- NOTE | 2016-12-24 00:30 | NUR ---
PATIENT RESTING: Patient resting quietly. No acute distress noted. Vital signs within normal range.
[2016-12-24] MEDS: ALBUTEROL SULFATE 0.083% 2.5 MG/3 ML VIAL.NEB INH SCH ×4 (00:31→20:00)
[2016-12-24] MEDS: MORPHINE 4 MG/ML INJ. SYRINGE IVP PRN ×4 (03:21→20:15)
--- NOTE | 2016-12-24 03:21 | NUR ---
Pain Management Pt c/o pain 06/02 to coccyx area. Covering RN notified and medicated pt with Morphine 4mg IVP as ordered for severe pain. No acute distress noted. Will continue to monitor.
[2016-12-24] MEDS: HYDROcodone/ACETAMIN 10-325 MG TAB PO PRN ×2 (05:35→14:11)
--- NOTE | 2016-12-24 05:35 | NUR ---
Pain Management Pt c/o left knee pain 01/31. Pt medicated with [place] 10-325mg 1 tab for moderate pain as ordered. Lotion provided and snacks. All needs met at this time. Call light in hand. Will continue to monitor.
[2016-12-24] MEDS: INSULIN NPH/REGULAR 70-30, 100 UNITS/ML, 10 ML VIAL SUBCUT SCH ×2 (05:47→16:33)
--- NOTE | 2016-12-24 06:35 | NUR ---
Closing Notes Pt is resting in bed. Pt states pain has subsided. No acute distress or sob noted. IV intact. VSS. All needs met throughout shift. Will endorse care to am nurse. Call light in hand. Will continue to monitor.
--- NOTE | 2016-12-24 07:20 | NUR ---
Initial notes: pt on bed sleeping. no distress noted. i.v. access intact. call light within reach. report received at bedside.
[2016-12-24 07:21] LABS: ALANINE AMINOTRANSFERASE 17 U/L (12-78); ALBUMIN 3.2 g/dL (3.4-4.8); ASPARTATE AMINOTRANSFERASE 12 U/L (10-37); CALCIUM 8.3 mg/dL (8.4-11.0); CHLORIDE 97 mmol/L (98-107); CHOLESTEROL 161 mg/dL (<200); CREATININE 0.66 mg/dL (0.55-1.30); GLUCOSE 190 mg/dL (70-99); HDL CHOLESTEROL 74 mg/dL (>55); LDL CHOLESTEROL 75 mg/dL (<100); POTASSIUM 3.8 mmol/L (3.5-5.1); SODIUM SERUM 133 mmol/L (136-145); THYROID STIMULATING HORMONE 0.85 uIu/mL (0.34-4.82); TOTAL BILIRUBIN 0.3 mg/dL (0.0-1.0); TRIGLYCERIDES 56 mg/dL (30-150); UREA NITROGEN, BLOOD 12 mg/dL (8-21)
[2016-12-24 07:24] LABS: ANION GAP < 3 (5-15); GFR AFRICAN AMERICAN 124 mL/min (>90)
[2016-12-24 07:27] LABS: BASOPHILS % (AUTO) 0.6 % (0.0-2.0); EOSINOPHILS # (AUTO) 0.4 K/uL (0.0-0.4); EOSINOPHILS % (AUTO) 6.5 % (0.0-4.0); HEMATOCRIT 40.9 % (36-48); LYMPHOCYTES # (AUTO) 1.2 K/uL (1.0-5.5); LYMPHOCYTES % (AUTO) 18.4 % (20.5-51.5); MEAN CORPUSCULAR HEMOGLOBIN 29 pg (27-31); MEAN CORPUSCULAR HGB CONC 34 % (32-36); MEAN CORPUSCULAR VOLUME 85 fL (79.0-98.0); MONOCYTES # (AUTO) 0.4 K/uL (0.0-1.0); MONOCYTES % (AUTO) 6.1 % (1.7-9.3); NEUTROPHILS # (AUTO) 4.8 K/uL (1.8-7.7); NEUTROPHILS % (AUTO) 68.4 % (40.0-70.0); PLATELET COUNT (AUTO) 200 K/uL (130-430); RED BLOOD CELL COUNT(AUTO) 4.82 MIL/uL (4.2-6.2); RED CELL DISTRIBUTION WIDTH 12.8 % (9.0-15.0); WHITE BLOOD COUNT (AUTO) 6.8 K/uL (4.8-10.8)
--- NOTE | 2016-12-24 07:57 | NUR ---
rounds: pt awake, alert and oriented. v/s taken. plan of care discussed.
[2016-12-24] MEDS: ASPIRIN 325 MG TABLET (ECOTRIN) PO SCH (08:21)
[2016-12-24] MEDS: DOCUSATE SODIUM 100 MG CAPSULE PO SCH ×2 (08:22→20:13)
[2016-12-24] MEDS: ATORVASTATIN 10 MG TABLET PO SCH (08:22)
[2016-12-24] MEDS: FUROSEMIDE 20 MG TABLET PO SCH (08:22)
[2016-12-24] MEDS: LUBIPROSTONE 24 MCG CAPSULE PO SCH ×2 (08:22→18:00)
[2016-12-24] MEDS: BACLOFEN 10 MG TABLET PO SCH ×3 (08:22→20:13)
[2016-12-24] MEDS: OMEPRAZOLE 20 MG CAPSULE.DR (PriLOSEC) PO SCH (08:23)
[2016-12-24] MEDS: ONDANSETRON HCL 4 MG/2 ML VIAL IM PRN ×2 (08:38→15:44)
[2016-12-24] MEDS: LISINOPRIL 5 MG TABLET PO SCH (09:00)
--- NOTE | 2016-12-24 09:04 | NUR ---
Ambulatory: pt walk with P.T.
--- NOTE | 2016-12-24 10:14 | NUR ---
rounds: pt on the bed resting. stable.
--- NOTE | 2016-12-24 11:28 | NUR ---
rounds: pt on bed. resting. stable.
--- NOTE | 2016-12-24 13:15 | NUR ---
PHYSICAL THERAPY CO-SIGN The Physical Therapy Progress Notes documented by Electronics Hardware Design Engineer have been reviewed. Reviewed/Co-Signed by: Natali Rehman,PT Documentation Done by: Rex Peñaloza PTA I concur with the documentation of this CONTAINER MAKER. Plan: continue PT as per plan of care. Addendum: 12/24/16 at 1442 by Natali Rehman PT Amended: Links added.
--- NOTE | 2016-12-24 14:12 | NUR ---
Mary: Paged Dr. Carter and still waiting to call back.
--- NOTE | 2016-12-24 14:13 | NUR ---
rounds: pt resting on bed. no distress noted.
--- NOTE | 2016-12-24 14:15 | NUR ---
Social Service Note: Pt referred to social work nurse by nursing due to pt's concerns about her ability to pay her co-pay. MEDICAL ESTHETICIAN met with pt at bedside; pt states that she knows her co-pay is high and is afraid she cannot pay it; pt states that her Medi-Duc is not working. MEDICAL ESTHETICIAN reviewed pt's insurance listed on facesheet; our records state pt has [employer] PPO and [place] [id number]. Pt states that she also has workers comp. MEDICAL ESTHETICIAN encouraged pt to reach out to billing office when her bill arrives to make payment plan for co-pay. MEDICAL ESTHETICIAN also alerted pt that MEDICAL ESTHETICIAN would contact the Admitting department to review with pt her insurance coverages. MEDICAL ESTHETICIAN has contacted the Admitting Department and requested a apprenticeship representative meet with pt at bedside to review her coverage. MEDICAL ESTHETICIAN will remain available for support and will follow up as needed.
--- NOTE | 2016-12-24 16:15 | NUR ---
rounds: pt on bed resting. stable.
--- NOTE | 2016-12-24 16:49 | NUR ---
12/24/16 Nutrition F/U Nutritional Screening Moderate Risk F/U Admitting Diagnosis Intractable back pain Reviewed Pertinent Medical/Surgical Hx Patient Other Medical Record Medical History Comment: IDDM, HLD, asthma, COPD, morbid obesity, chronic pain syndrome per MD notes /2 per MD notes: Chronic pelvic pain, Female Vaginal pain, Left extremities pain Subjective Information Pt seen in bed, having lunch during time of RD visit. Pt complained of feeling of bloatedness and nausea. Pt reported of emesis x1 yesterday 12/23/16. Pt verbalized that she prefers regular soda over diet soda, RD explained that we are unable to timothy her request due to MD order of [facility] [place] diet. Current diet is appropriate at this time. RD provided nutrition education; please see interdisciplinary teaching record for details. Current Diet Order/Nutrition Support [facility] [place] Patient/Significant Other Able To Verbalize Education Provided Indicated Pertinent Medications lasix, lipitor, novolin 70-30, levemir, colace, morphine, norco, milk of magnesia Pertinent Labs 12/24/16 BG 190 H, Sodium 133 L, Calcium 8.3 L, Albumin 3.2 L Height (Feet) 5 feet Height (Inches) 1.00 inches Weight (Pounds) 249 pounds Weight (Calculated Kilograms) 112.240025 kilograms Patient Weight 112.945 kg Body Mass Index 47.04 kg/m2 Usual Weight 250 lbs %UBW 99 %IBW 235 Watson/Adjusted Body Weight IBW: 105 lb, 48 kg. Adj IBW (obesity): 141 lb, 64 kg Recent Weight Change Yes - Pt reported 50 lb wt gain within past 2 months r/t steroid use Weight Status Morbidly Obese Gastrointestinal Symptoms Constipation Food Allergies Yes - Eggs (reaction: rash/stomach ache) Usual Diet At Home Rice, beans, potatoes, little meat d/t financial difficulty per pt report Skin Integrity Comment: Jas scale: 19; per nursing notes. Current % PO Fair (50-74%) Estimated Energy Expenditure (kcals/day) 6826-1885 kcal/day (BEE x 1-1.2 CBW for maintenance) Estimated Protein Required (g/day) 46-57 gm/day (0.8-1 gm/kg CBW for maintenance) Estimated Fluid Required (l/day) 1.8-2 L/day (1 ml/kcal/day for maintenance) Problem/Etiology/Signs/Symptoms Obesity related to lifestyle and socioeconomic factors as evidenced by unrestricted diet and inability to purchase wholesome/varied foods, lack of physical activity d/t pain, BMI: 47.04 kg/m2, and 235% IBW. Malnutrition related to morbid obesity as evidenced by BMI: 47.04 kg/m2 and 235% of IBW. Altered nutrition-related labs related to endocrine dysfunction as evidenced by elevated BG and POC BG lab values. Expected Outcomes/Goals - Monitor appetite and PO intakes w/ goal of pt meeting at least 75% of estimated nutritional needs, labs trending WNL, normal GI function, and skin integrity/wt maintenance Dietitian Recommendations * Recommend continuing CCHO diet per MD Follow up: Moderate Risk F/U in 3-5 days. Follow up by: December 29, 2016
--- NOTE | 2016-12-24 18:01 | NUR ---
rounds: pt having dinner. no distress noted.
--- NOTE | 2016-12-24 18:10 | NUR ---
Telephone conversation: Paged Dr. Obregon and informed him Dr. Carter, pain management dr, called x3 but did not call back. Per Dr. Obregon discharge the pt and she can see him in his office.
--- NOTE | 2016-12-24 18:35 | NUR ---
PAGED PAGED GOLDEN JAQUEZ AT [phone] SPOKE WITH CALLY.
--- NOTE | 2016-12-24 18:42 | NUR ---
Telephone conversation with Dr. Carter: Paged Dr. Carter at 18:20, 4th time. He called back at 18:40. He verbalized "he will not do any prescription. The pt can go back to her family doctor."
--- NOTE | 2016-12-24 19:39 | NUR ---
closing notes: pt on bed. discharge paper work signed. waiting for for a ride. pass it to overnight cashier nurse.
--- NOTE | 2016-12-24 20:15 | NUR ---
OPENING NOTE Late entry due to pt. care. Pt. and report received from day shift nurse. Pt. is AAO x 4 and resting quietly in bed, watching tv. Transition of care to home discussed; pt. stated her Tan Beebe will be the one to pick her up and ETA is [phone]. Safety precautions in place. Educated pt. on how to use call light for needs. Pt. verbalized understanding. Will continue to monitor.
--- NOTE | 2016-12-24 20:34 | NUR ---
PAIN Pt. c/o "04/02" pain to lower back. Pt. medicated with Morphine 4mg IVP as ordered PRN for severe pain. Due meds administered as ordered. Pt. tolerated well. Educated pt. regarding medication and s/e. Pt. verbalized understanding. Safety precautions in place. Will continue to monitor.
--- NOTE | 2016-12-24 21:52 | NUR ---
DC/TRANSITION OF CARE TO HOME Patient given medication reconciliation form and transition of care to home instructions. Exit Care provided. Patient verbalized understanding. MD discussed with patient the results and treatment provided. Ambulatory with steady gait for discharge to home. Patient in stable condition, ID band removed. IV catheter removed, 22g, intact and dressing applied, no active bleeding. Patient educated on pain management. All belongings sent with patient. Spouse Tan with patient. Pt. able to transfer to wheelchair with ANA Knight.
[2017-03-18] MEDS ORDERED: PRO40 PO (20:42)
[2017-03-18] MEDS ORDERED: CYCL-10 PO (20:42)
[2017-03-18] MEDS ORDERED: INSU10VI4 SUBCUT (23:23)
== END 2016-12-24 21:50 | disposition home or self-care (01) | DRG 92 ==
LOC: SED 09:32 → SMU 12:24
DX: G89.4 Chronic pain syndrome (principal); Z68.42 Body mass index [BMI] 45.0-49.9, adult; E11.65 Type 2 diabetes mellitus with hyperglycemia; E78.5 Hyperlipidemia, unspecified; I10 Essential (primary) hypertension; E66.01 Morbid (severe) obesity due to excess calories; J44.9 Chronic obstructive pulmonary disease, unspecified; R32 Unspecified urinary incontinence; R10.2 Pelvic and perineal pain; F32.9 Major depressive disorder, single episode, unspecified; F41.9 Anxiety disorder, unspecified; Z79.4 Long term (current) use of insulin; Z79.899 Other long term (current) drug therapy; Z88.5 Allergy status to narcotic agent; Z88.8 Allergy status to other drugs, medicaments and biological substances; Z90.710 Acquired absence of both cervix and uterus; Z91.012 Allergy to eggs; Z79.82 Long term (current) use of aspirin
CPT/HCPCS: 36415; 72148; 80048; 80053; 80061; 81000-TC; 81025; 82962; 83605; 83690-TC; 83735-TC; 84443-TC; 85025; 87040-TC; 94640; 94760; 96374; 96375; 96376; 97110-GP; 97116-GP; 97530-GP; 99285; J1815; J1885; J2270; J2405

== ENCOUNTER 2018-06-09 21:11 | Inpatient (IN) | payer BC, MEDICAID ==
[~2018-06-09] VITALS: Ht 154.9 cm; Wt 94.8 kg
[~2018-06-09 21:11] MED LIST changes: -ALBU17AE26 IH; +ASPI-862 PO; -ASPI325T2 PO; +BACL20TA PO; +CYCL-10 PO; +DOCU-144 PO; -DOXY100T2 PO; -ESCI10TA PO; +HYDR-1189 PO; -INSULIN; +LISI-209 PO; -LORA1TAB PO; +LUBI24CA5 PO; -METF-305 PO; +MOME13HF2 INH; +PRO40 PO; -SIMV40TA2 PO; -TOP25 PO; +TRAM50TA92 PO
[2018-06-09 21:13] VITALS: BP_SYST 128
--- NOTE | 2018-06-09 21:15 | NUR ---
Patient ambulatory to ED a/o x 4 with c/o left sided weakness and numbness x 1 day. Reports onset of symptoms began late last night. Patient answering questions appropriately. Presents with right sided facial drooping; per patient drooping present since hx of TIA last year. Patient speech intact. Assembly Worker equal. Drift to left lower extremity noted. -SOB -CP -N/V/D -Change in vision.
--- NOTE | 2018-06-09 21:15 | NUR ---
Patient to ER bed 5 to gown for evaluation. Side rails up. Report given to Ender TRINIDAD.
--- NOTE | 2018-06-09 21:22 | NUR ---
ED MD Ovalles at bedside for medical evaluation.
--- NOTE | 2018-06-09 21:25 | NUR ---
#20 gauge angiocath placed to RAC. Use of asceptic technique. Opsite placed over site. Blood return noted. Blood for lab drawn from site. Flushed with 10 cc of normal saline. No evidence of infiltration noted. Patient tolerated well.
[2018-06-09 22:28] LABS: BILIRUBIN,URINE NEGATIVE (NEGATIVE); BLOOD, URINE NEGATIVE (NEGATIVE); CLARITY/URINE CLEAR (CLEAR); COLOR,URINE YELLOW (YELLOW); GLUCOSE,URINE NEGATIVE (NEGATIVE); KETONES,URINE NEGATIVE (NEGATIVE); LEUKOCYTE ESTERASE ,URINE NEGATIVE (NEGATIVE); NITRITE, URINE NEGATIVE (NEGATIVE); PROTEIN URINE NEGATIVE (NEGATIVE); UROBILINOGEN,URINE 0.2 (0.2-1.0)
[2018-06-09] MEDS ORDERED: KETOROLAC TROMETHAMINE 30 MG VIAL IVP ONE (22:30)
[2018-06-09] MEDS ORDERED: NACL 0.9% 1,000 ML IV ONE (22:30)
--- NOTE | 2018-06-09 23:20 | NUR ---
ED MD Ovalles at bedside reassessing patient.
[2018-06-09] MEDS ORDERED: DIPHENHYDRAMINE INJ 50 MG/ML VIAL IVP ONE (23:30)
[2018-06-09] MEDS ORDERED: PROCHLORPERAZINE EDISYLATE 10 MG/2 ML VIAL IVP ONE (23:30)
[2018-06-09 23:36] LABS: CALCIUM 8.9 mg/dL (8.4-11.0); CREATININE 0.67 mg/dL (0.55-1.30); POTASSIUM 3.7 mmol/L (3.5-5.1)
[2018-06-09 23:39] LABS: BASOPHILS # (AUTO) 0.2 K/uL (0.0-0.2); BASOPHILS % (AUTO) 1.8 % (0.0-2.0); EOSINOPHILS # (AUTO) 0.3 K/uL (0.0-0.4); EOSINOPHILS % (AUTO) 3.2 % (0.0-4.0); HEMATOCRIT 43.4 % (36-48); HEMOGLOBIN 14.2 g/dL (12.0-16.0); LYMPHOCYTES # (AUTO) 2.6 K/uL (1.0-5.5); LYMPHOCYTES % (AUTO) 24.7 % (20.5-51.5); MEAN CORPUSCULAR HEMOGLOBIN 29 pg (27-31); MEAN CORPUSCULAR HGB CONC 33 % (32-36); MEAN CORPUSCULAR VOLUME 88 fL (79.0-98.0); MONOCYTES # (AUTO) 0.6 K/uL (0.0-1.0); MONOCYTES % (AUTO) 5.3 % (1.7-9.3); NEUTROPHILS # (AUTO) 6.8 K/uL (1.8-7.7); PLATELET COUNT (AUTO) 257 K/uL (130-430); RED BLOOD CELL COUNT(AUTO) 4.95 MIL/uL (4.2-6.2); RED CELL DISTRIBUTION WIDTH 12.4 % (9.0-15.0); WHITE BLOOD COUNT (AUTO) 10.5 K/uL (4.8-10.8)
[2018-06-09] MEDS ORDERED: ACETAMINOPHEN 325 MG TABLET PO PRN (23:45)
[2018-06-09 23:47] LABS: ALBUMIN 3.1 g/dL (3.4-4.8); TOTAL BILIRUBIN 0.4 mg/dL (0.0-1.0)
[2018-06-09] MEDS ORDERED: HYDR12.55 PO (23:56)
[2018-06-09] MEDS ORDERED: ASA81 PO (23:56)
[2018-06-09] MEDS ORDERED: LIRA0.6P SQ (23:56)
[2018-06-09] MEDS ORDERED: GABA-529 PO (23:56)
--- NOTE | 2018-06-09 23:57 | NUR ---
Medication reconciliation completed with information provided by patient. Any prior medication reconciliation on file was reviewed and corrected.
--- NOTE | 2018-06-10 | NUR ---
End of life care decisions discussed with patient by Dr. Ovalles. Opportunity for questions and concerns addressed. Patient's code status is Full Code paperwork completed and placed in chart.
--- NOTE | 2018-06-10 00:20 | NUR ---
Patient will be admitted to care of Dr. Obregon. Admitted to Telemetry unit. Will go to room 108A. Belongings list completed. Summary report printed. Report will be given at bedside. Transfer to telemetry via ACLS protocol. Licensed nurse present. IV present no signs or symptoms of infiltration.
[2018-06-10 00:25] VITALS: BP_SYST 116
--- NOTE | 2018-06-10 00:25 | NUR ---
ADMISSION NOTE PT RECEIVED FROM ER VIA [facility]. REPORT RECEIVED FROM JANAE TRINIDAD. PT ADMITTED WITH DX OF POSSIBLE CVA. PT LETHARGIC AT THIS TIME D/T MEDICATIONS GIVEN IN ER. PT IS EASILY AROUSABLE AND ABLE TO FOLLOW COMMANDS. VSS, NO S/S OF ACUTE DISTRESS NOTED. PT ON RA, BREATHING IS EVEN AND UNLABORED. RAC 20G TO SL, PATENT AND INTACT. HOB ELEVATED, BED IN LOWEST POSITION, CALL LIGHT IN REACH. WILL CONTINUE TO MONITOR PT.
[2018-06-10] MEDS: NACL 0.9% 1,000 ML IV SCH ×2 (00:40→15:36)
--- NOTE | 2018-06-10 02:31 | NUR ---
RN ROUNDS PT CONTINUES TO SLEEP COMFORTABLY IN BED, AUDIBLE SNORING HEARD. BREATHING IS EVEN AND UNLABORED ON RA. NO S/S OF ACUTE DISTRESS NOTED. WILL CONTINUE TO MONITOR PT.
--- NOTE | 2018-06-10 04:00 | NUR ---
RN ROUNDS PT CONTINUES TO REST COMFORTABLY IN BED. BREATHING IS EVEN AND UNLABORED ON RA. NO S/S OF ACUTE DISTRESS NOTED. WILL CONTINUE TO MONITOR PT.
--- NOTE | 2018-06-10 05:56 | NUR ---
RN ROUNDS PT SEEN TO WAKE UP IN BED, ASKED PT HOW SHE IS FEELING AND PT STATES "I'M SLEEPY". NO OTHER NEEDS VERBALIZED BY PT AT THIS TIME. NO S/S OF ACUTE DISTRESS NOTED. BREATHING IS EVEN AND UNLABORED ON RA. NS INFUSING VIA 20G RAC @ 75 CC/HR. IV SITE CLEAN, PATENT, AND INTACT. WILL CONTINUE TO MONITOR PT.
[2018-06-10 07:18] LABS: ALBUMIN 2.6 g/dL (3.4-4.8); CALCIUM 8.5 mg/dL (8.4-11.0); CREATININE 0.4 mg/dL (0.55-1.30); POTASSIUM 3.5 mmol/L (3.5-5.1); TOTAL BILIRUBIN 0.4 mg/dL (0.0-1.0)
[2018-06-10 08:30] VITALS: BP_SYST 100
--- NOTE | 2018-06-10 08:40 | NUR ---
OPENING NOTE LATE ENTRY DUE TO PT CARE: REPORT IS RECEIVED FROM ASSOCIATE MERCHANDISER NURSE AND CARE IS ENDORSED TO MYSELF. PT IS RECEIVED AWAKE, ALERT, AND ORIENTED X4. MORNING VS ARE STABLE. WHITE BOARD IS UPDATED AND PLAN OF CARE IS DISCUSSED. CURRENT NEEDS ARE MET. BED IS AT LOWEST POSITION, CALL LIGHT WITHIN REACH, THREE SIDE RAILS UP, BED ALARM IS ON. WILL CONTINUE TO MONITOR.
[2018-06-10] MEDS ORDERED: LISINOPRIL 5 MG TABLET PO SCH (09:00)
[2018-06-10] MEDS ORDERED: GABAPENTIN 100 MG CAPSULE PO SCH (09:00)
[2018-06-10] MEDS ORDERED: ASPIRIN 81 MG TAB.CHEW PO SCH ×2 (09:00)
[2018-06-10] MEDS ORDERED: OMEPRAZOLE 20 MG CAPSULE.DR (PriLOSEC) PO ONE (09:00)
--- NOTE | 2018-06-10 10:58 | NUR ---
ROUNDS PT IS AWAKE AND ALERT, WATCHING TV. NO SIGNS OR SYMPTOMS OF DISTRESS OR SOB NOTED. PT DENIES ANY PAIN. CURRENT NEEDS ARE MET. BED IS AT LOWEST POSITION, CALL LIGHT WITHIN REACH, TWO SIDE RAILS UP, BED ALARM IS ON. WILL CONTINUE TO MONITOR.
[2018-06-10 12:00] VITALS: BP_SYST 111
--- NOTE | 2018-06-10 14:20 | NUR ---
ROUNDS LATE ENTRY DUE TO PT CARE: PT IS SLEEPING. NO SIGNS OR SYMPTOMS OF DISTRESS OR SOB NOTED. CURRENT NEEDS ARE MET. BED IS AT LOWEST POSITION, CALL LIGHT WITHIN REACH, THREE SIDE RAILS UP, BED ALARM IS ON. WILL CONTINUE TO MONITOR.
[2018-06-10 14:37] VITALS: BP_SYST 111
--- NOTE | 2018-06-10 15:00 | NUR ---
DR. LAMIN BANSAL DR CLEARED PT FOR DISCHARGE AND WANTS PT TO FOLLOW UP IN HIS OFFICE IN TWO WEEKS. GAVE PT DOCTORS INFORMATION TO MAKE APPOINTMENT.
--- NOTE | 2018-06-10 15:30 | NUR ---
DR. BARRIGA CALLED MD TO NOTIFY HIM THAT DR. KIMBLE CLEARED PT FOR DISCHARGE. PER DR. BARRIGA, DISCHARGE PT HOME ON SAME HOME MEDICATIONS.
--- NOTE | 2018-06-10 16:40 | NUR ---
ROUNDS LATE ENTRY DUE TO PT CARE: PT IS AWAKE AND ALERT, WATCHING TV. NO SIGNS OR SYMPTOMS OF DISTRESS OR SOB NOTED. PT COMPLAINS OF HEADACHE AND GAVE PRN TYLENOL. CURRENT NEEDS ARE MET. BED IS AT LOWEST POSITION, CALL LIGHT WITHIN REACH, THREE SIDE RAILS UP, BED ALARM IS ON. WILL CONTINUE TO MONITOR.
[2018-06-10] MEDS ORDERED: INSULIN Lispro Prot/Lispro MIX 75-25, 100 UNITS/ML, 10 ML VIAL SUBCUT SCH (17:00)
[2018-06-10 17:04] VITALS: BP_SYST 105
--- NOTE | 2018-06-10 18:48 | NUR ---
CLOSING NOTE PT IS AWAKE AND ALERT. WAITING FOR FAMILY TO COME RIVET SORTER PT TO GO HOME. CURRENT NEEDS ARE MET. BED IS AT LOWEST POSITION, CALL LIGHT WITHIN REACH, THREE SIDE RAILS UP, BED ALARM IS ON. WILL CONTINUE TO MONITOR UNTIL CARE AND REPORT IS GIVEN TO INTERNATIONAL SOURCING MANAGER NURSE.
[2018-06-10 20:00] VITALS: BP_SYST 93
--- NOTE | 2018-06-10 20:09 | NUR ---
MST ASSESSMENT / DISCHARGE Rcvd patient AOx4, sitting on chair, in no sign of distress. VSS. Transition paperwork given to patient, patient verbalized understanding to f/u w/MD. IV line removed from Rt AC, w/ catheter intact, covered w/gauzed and paper tape, ID removed. Pts belongings accounted for. Patient left with family and walked w/ steady gait.
[2018-06-11] MEDS ORDERED: OMEPRAZOLE 20 MG CAPSULE.DR (PriLOSEC) PO SCH (07:00)
== END 2018-06-10 20:09 | disposition home or self-care (01) | DRG 69 ==
LOC: SED 21:11 → STU 23:45
PROVIDERS: ADMIT Internal Medicine Cardiovascular Disease; ATTEND Internal Medicine Cardiovascular Disease
DX: G45.9 Transient cerebral ischemic attack, unspecified (principal); I69.351 Hemiplegia and hemiparesis following cerebral infarction affecting right dominant side; G89.4 Chronic pain syndrome; I10 Essential (primary) hypertension; E11.9 Type 2 diabetes mellitus without complications; E66.9 Obesity, unspecified; G43.909 Migraine, unspecified, not intractable, without status migrainosus; M19.90 Unspecified osteoarthritis, unspecified site; Z82.49 Family history of ischemic heart disease and other diseases of the circulatory system; Z83.3 Family history of diabetes mellitus; Z79.4 Long term (current) use of insulin; Z90.710 Acquired absence of both cervix and uterus; Z88.8 Allergy status to other drugs, medicaments and biological substances; Z91.012 Allergy to eggs; Z79.899 Other long term (current) drug therapy; Z68.39 Body mass index [BMI] 39.0-39.9, adult
CPT/HCPCS: 36415; 70450-TC; 71045; 80053; 81003; 82962; 83036; 85025; 93005; 96361; 96374; 96375; 99285; J0780; J1200; J1885; J7030

== ENCOUNTER 2019-05-08 01:50 | Inpatient (IN) | payer BC ==
[~2019-05-08] VITALS: Ht 154.9 cm; Wt 101.6 kg
[~2019-05-08 01:50] MED LIST changes: -ALBU8.5H8 INH; +ASA81 PO; -ASPI-862 PO; -BACL20TA PO; -CYCL-10 PO; -DOCU-144 PO; -FURO-150 PO; +GABA-529 PO; -HYDR-1189 PO; +HYDR12.55 PO; -LIP10 PO; +LIRA0.6P SQ; -LUBI24CA5 PO; -MOME13HF2 INH; -PRO40 PO
[2019-05-08 01:55] VITALS: BP_SYST 127
--- NOTE | 2019-05-08 01:55 | NUR ---
Patient to ER bed 3 to gown for evaluation. Side rails up.
--- NOTE | 2019-05-08 02:00 | NUR ---
Pt complains of swelling bilateral lower extremities for about 4 days. Pt denies any pain, N/V, fever or trauma. Pt is ambulatory and AAO x 4. NO other injuries/complaints per patient or noted.
--- NOTE | 2019-05-08 02:04 | NUR ---
ER Dr. Hough at bedside examining patient.
[2019-05-08 02:42] LABS: BASOPHILS % (AUTO) 0.3 % (0.0-2.0); EOSINOPHILS # (AUTO) 0.6 K/uL (0.0-0.4); EOSINOPHILS % (AUTO) 7.4 % (0.0-4.0); HEMATOCRIT 35.4 % (36-48); HEMOGLOBIN 12.3 g/dL (12.0-16.0); LYMPHOCYTES # (AUTO) 3.1 K/uL (1.0-5.5); LYMPHOCYTES % (AUTO) 38.6 % (20.5-51.5); MEAN CORPUSCULAR HEMOGLOBIN 29 pg (27-31); MEAN CORPUSCULAR HGB CONC 35 % (32-36); MEAN CORPUSCULAR VOLUME 84 fL (79.0-98.0); MONOCYTES # (AUTO) 0.7 K/uL (0.0-1.0); NEUTROPHILS # (AUTO) 3.5 K/uL (1.8-7.7); NEUTROPHILS % (AUTO) 44.7 % (40.0-70.0); PLATELET COUNT (AUTO) 178 K/uL (130-430); RED CELL DISTRIBUTION WIDTH 13.9 % (9.0-15.0); WHITE BLOOD COUNT (AUTO) 7.9 K/uL (4.8-10.8)
[2019-05-08 02:48] LABS: CALCIUM 8.1 mg/dL (8.4-11.0); CREATININE 0.52 mg/dL (0.55-1.30); POTASSIUM 4.1 mmol/L (3.5-5.1)
[2019-05-08 02:54] LABS: PROTHROMBIN TIME 9.6 SECS (9.5-12.5)
[2019-05-08 02:59] LABS: ALBUMIN 2.8 g/dL (3.4-4.8); TOTAL BILIRUBIN 0.2 mg/dL (0.0-1.0)
--- NOTE | 2019-05-08 03:16 | NUR ---
Xray at bedside. Pt tolerated well.
--- NOTE | 2019-05-08 04:37 | NUR ---
Medication reconciliation completed with information provided by patient at bedside. Any prior medication reconciliation on file was reviewed and corrected.
[2019-05-08] MEDS ORDERED: ASPIRIN 325 MG TABLET PO ONE (05:00)
--- NOTE | 2019-05-08 05:03 | NUR ---
Patient will be admitted to care of Dr. Moran. Admitted to Telemetry unit. Will go to room 134 A. Belongings list completed. Summary report printed. Report will be given at bedside.
--- NOTE | 2019-05-08 05:03 | NUR ---
Transfer to Telemetry via ACLS protocol. Licensed nurse present. IV present no signs or symptoms of infiltration.
--- NOTE | 2019-05-08 05:07 | NUR ---
ADMISSION NOTE Received patient from ER via crystal, received report from DAVID TRINIDAD. Patient admitted with diagnosis of SOB. Patient oriented to hospital routine, call light, toileting and safety-patient verbalized understanding.
[2019-05-08 05:16] VITALS: BP_SYST 126
--- NOTE | 2019-05-08 05:46 | NUR ---
CONSULTATION PAGED/CALLED Reason for Consultation: SHORT OF BREATH Person Who was Notified: ELIER Consulting Physician: Display Department Manager Specialty: MINCING MACHINE OPERATOR Ordering Physician:DR. BARRIENTOS
[2019-05-08] MEDS: INSULIN REGULAR, HUMAN 100 UNITS/ML, 10 ML VIAL (humuLIN R) SUBCUT PRN ×4 (06:06→20:14)
--- NOTE | 2019-05-08 06:34 | NUR ---
CLOSING NOTES Pt is AAOx4, lying in bed. No complains of pain or discomfort at this time. No signs of acute distress or SOB noted. Encouraged to use call light when needed. Safety precautions in place with 2 side rails up, wheels locked, and bed in lowest level. Call light with pt. Will endorse to day shift nurse.
--- NOTE | 2019-05-08 07:39 | NUR ---
OPENING NOTE PATIENT AWAKE IN BED. A/OX4. ABLE TO MAKE NEEDS KNOWN. ROOM AIR. NO ACUTE DISTRESS. NO SOB. RESPIRATION EVEN AND UNLABORED. SKIN WARM AND DRY TO TOUCH. IV INTACT AND PATENT TO RAC. ASSISTED WITH REPOSITIONING. BED IN LOW AND LOCKED POSITION. SIDERAIL UPX2. BED ALARM ON. CALL LIGHT IN REACH. CONT TO MONITOR
[2019-05-08 07:47] VITALS: BP_SYST 109
--- NOTE | 2019-05-08 10:00 | NUR ---
IV RE-INSERTION: Complaining of pain to IV site in RAC. Restarted on RFA, 22G. Successful after x1 attempts. IV flushes freely with good blood return. Covered and secured with transparent dressing. Will observe for any signs of infiltration.
--- NOTE | 2019-05-08 11:45 | NUR ---
BS PATIENT BS 205 mg/dL WITH 4 UNITS INSULIN ADMINISTERED ORDERED; CARLOTA WELL. TEACHING DONE ON DM. DAUGHTER AND AT BEDSIDE. CONT TO MONITOR
[2019-05-08] MEDS ORDERED: DEXTROSE 50% JECT 50 ML DISP.SYRIN IVP PRN (12:15)
[2019-05-08] MEDS ORDERED: FUROSEMIDE 40 MG/4 ML VIAL IVP ONE (12:30)
--- NOTE | 2019-05-08 12:30 | NUR ---
SEEN AND EXAMINED BY AT BEDSIDE
[2019-05-08 12:45] VITALS: BP_SYST 112
[2019-05-08] MEDS ORDERED: CHOLECALCIFEROL (VITAMIN D3) 2,000 UNIT TABLET PO ONE (12:45)
--- NOTE | 2019-05-08 12:54 | NUR ---
note urine collected for UA and taken to lab. Addendum: 05/08/19 at 1354 by Hedy Rodriguez RN STARTED 24 HR URINE COLLECTION AT 1250
[2019-05-08 13:16] LABS: BILIRUBIN,URINE NEGATIVE (NEGATIVE); BLOOD, URINE NEGATIVE (NEGATIVE); CLARITY/URINE CLEAR (CLEAR); COLOR,URINE YELLOW (YELLOW); GLUCOSE,URINE 1+ (NEGATIVE); KETONES,URINE NEGATIVE (NEGATIVE); LEUKOCYTE ESTERASE ,URINE NEGATIVE (NEGATIVE); NITRITE, URINE NEGATIVE (NEGATIVE); PH,URINE 7.5 (5.0-8.0); PROTEIN URINE NEGATIVE (NEGATIVE); UROBILINOGEN,URINE 0.2 (0.2-1.0)
[2019-05-08 14:42] LABS: URIC ACID 3.9 mg/dL (2.4-7.0)
[2019-05-08] MEDS: CALCIUM 500 MG/TAB PO SCH ×2 (14:42→20:10)
[2019-05-08] MEDS: GABAPENTIN 100 MG CAPSULE PO SCH ×2 (14:42→20:11)
--- NOTE | 2019-05-08 14:45 | NUR ---
MEDS ASSISTED PATIENT TO BATHROOM. ADMINISTERED MEDS ORDERED, CARLOTA WELL. ALL NEEDS MET. CONT TO MONITOR.
[2019-05-08] MEDS ORDERED: GABAPENTIN 100 MG CAPSULE PO SCH (15:00)
[2019-05-08 16:42] VITALS: BP_SYST 115
[2019-05-08] MEDS ORDERED: INSULIN Lispro Prot/Lispro MIX 75-25, 100 UNITS/ML, 10 ML VIAL SUBCUT SCH (17:00)
--- NOTE | 2019-05-08 17:03 | NUR ---
SEEN AND EXAMINED BY AT BEDSIDE
[2019-05-08] MEDS: INSULIN NPH/REGULAR 70-30, 100 UNITS/ML, 10 ML VIAL SUBCUT SCH (17:22)
--- NOTE | 2019-05-08 18:41 | NUR ---
CLOSING NOTE PATIENT RESTING IN BED. EASILY AROUSABLE. NO ACUTE DISTRESS. NO SOB. RESPIRATION EVEN AND UNLABORED. SKIN WARM AND DRY TO TOUCH. IV INTACT AND PATENT. NO S/SX HYPO/HYPERGLYCEMIA NOTED. BED IN LOW AND LOCKED POSITION. SIDERAIL UP X2. PATIENT REFUSE BED ALARM. ALL NEEDS MET. CALL LIGHT IN REACH. CONT TO MONITOR. WILL ENDORSE TO ONCOMING SHIFT
--- NOTE | 2019-05-08 19:10 | NUR ---
OPENING NOTES Bedside report received from dayshift nurse. Patient received lying in bed, AOX4, no s/s of acute distress noted. Breathing even and unlabored. Patient denies pain or discomfort. No SOB noted. Call light with patient, instructed to call for any assistance, patient verbalized understanding and demonstrated back proper use. Bed is locked and at lowest position. Will continue to monitor.
[2019-05-08 20:00] VITALS: BP_SYST 119
[2019-05-08] MEDS: LOSARTAN POTASSIUM 25 MG TABLET PO SCH (20:11)
[2019-05-08] MEDS: FUROSEMIDE 40 MG TABLET PO SCH (20:11)
[2019-05-08] MEDS: ENOXAPARIN SODIUM 40 MG/0.4 ML SYRINGE SUBCUT SCH (20:12)
[2019-05-08] MEDS: INSULIN GLARGINE 100 UNITS/ML 10 ML VIAL SUBCUT SCH (20:15)
[2019-05-08] MEDS ORDERED: SPIRONOLACTONE 50 MG TABLET (ALDACTONE) PO SCH (21:00)
--- NOTE | 2019-05-08 21:00 | NUR ---
ROUNDS Patient in bed resting, no signs of discomfort noted. Patient denies pain or discomfort. No SOB noted. Chest rise and fall even bilaterally. Skin warm and dry to touch. No s/s of hypoglycemia noted. IV site patent, no signs of infiltration or infection noted. Call light with patient. Bed is locked and at lowest position. Will continue to monitor.
--- NOTE | 2019-05-08 23:00 | NUR ---
ROUNDS Patient in bed sleeping at this time. No s/s of acute distress noted. Breathing even and unlabored. Patient's daughter arrived, and is at bedside. Call light with patient. Will continue to monitor.
[2019-05-09 00:43] VITALS: BP_SYST 106
--- NOTE | 2019-05-09 00:59 | NUR ---
LOW SUGAR Patient complained of feeling jittery and chills. Accu check done at this time, blood sugar at 61. Snacks and orange juice provided by RN. Will continue to monitor and reassess.
--- NOTE | 2019-05-09 01:43 | NUR ---
REASSESSED Patient states she feels better. Accu check done, blood sugar at 131. Skin warm and dry to touch. No s/s of hypoglycemia noted at this time. Call light with patient, instructed to call for any assistance. Patient's daughter at bedside. Both patient and daughter verbalized understanding. Will continue to monitor and reassess.
--- NOTE | 2019-05-09 03:43 | NUR ---
ROUNDS Patient in bed sleeping. No s/s of acute distress noted. Breathing even and unlabored. Call light with patient. Will continue to monitor.
--- NOTE | 2019-05-09 05:34 | NUR ---
ROUNDS Patient in bed asleep. No signs of discomfort noted. Chest rise and fall even bilaterally. HOB raised. Call light with patient. Will continue to monitor.
[2019-05-09] MEDS: INSULIN NPH/REGULAR 70-30, 100 UNITS/ML, 10 ML VIAL SUBCUT SCH ×2 (06:10→17:34)
--- NOTE | 2019-05-09 06:24 | NUR ---
CLOSING NOTE Patient in bed sleeping at this time. No s/s of acute distress noted. Breathing even and unlabored. HOB raised. IV site patent, no signs of infiltration or infection noted. Skin warm and dry to touch, no s/s of hypoglycemia noted. All needs met throughout shift. Fall and safety precautions maintained throughout shift. Will continue to monitor until patient care is endorsed to oncoming dayshift nurse.
[2019-05-09 07:28] LABS: ALBUMIN 2.5 g/dL (3.4-4.8); CALCIUM 8.6 mg/dL (8.4-11.0); CREATININE 0.36 mg/dL (0.55-1.30); INR 0.9 (0.8-1.2); PHOSPHORUS 5.2 mg/dL (2.7-4.5); POTASSIUM 3.7 mmol/L (3.5-5.1); PROTHROMBIN TIME 9.4 SECS (9.5-12.5); TOTAL BILIRUBIN 0.3 mg/dL (0.0-1.0)
[2019-05-09 07:40] LABS: BASOPHILS % (AUTO) 0.4 % (0.0-2.0); EOSINOPHILS # (AUTO) 0.6 K/uL (0.0-0.4); EOSINOPHILS % (AUTO) 8.5 % (0.0-4.0); HEMATOCRIT 36.2 % (36-48); HEMOGLOBIN 12.4 g/dL (12.0-16.0); LYMPHOCYTES # (AUTO) 2.6 K/uL (1.0-5.5); LYMPHOCYTES % (AUTO) 36.7 % (20.5-51.5); MEAN CORPUSCULAR HEMOGLOBIN 29 pg (27-31); MEAN CORPUSCULAR HGB CONC 34 % (32-36); MEAN CORPUSCULAR VOLUME 84 fL (79.0-98.0); MONOCYTES # (AUTO) 0.6 K/uL (0.0-1.0); MONOCYTES % (AUTO) 8.6 % (1.7-9.3); NEUTROPHILS # (AUTO) 3.3 K/uL (1.8-7.7); NEUTROPHILS % (AUTO) 45.8 % (40.0-70.0); PLATELET COUNT (AUTO) 189 K/uL (130-430); RED BLOOD CELL COUNT(AUTO) 4.33 MIL/uL (4.2-6.2); RED CELL DISTRIBUTION WIDTH 13.7 % (9.0-15.0); WHITE BLOOD COUNT (AUTO) 7.2 K/uL (4.8-10.8)
--- NOTE | 2019-05-09 08:00 | NUR ---
AM NOTES- IN BED, KEEP NPO FOR ULTRASOUND. DENIES ANY PAIN OR SHORTNESS OF BREATH AT THIS TIME. ON ROOM AIR TOLERATING WELL. SAFETY PRECAUTION OBSERVED. ENC TO CALL FOR HELP NEEDED. WILL MONITOR.
--- NOTE | 2019-05-09 09:15 | NUR ---
notes-abdominal ultrasound done. called dietary for breakfast tray.
[2019-05-09 09:16] VITALS: BP_SYST 107
[2019-05-09] MEDS: FUROSEMIDE 40 MG TABLET PO SCH ×2 (09:32→21:00)
[2019-05-09] MEDS: CALCIUM 500 MG/TAB PO SCH ×3 (09:32→21:12)
[2019-05-09] MEDS: PANTOPRAZOLE SODIUM 40 MG TAB PO SCH (09:32)
[2019-05-09] MEDS: GABAPENTIN 100 MG CAPSULE PO SCH ×2 (09:33→14:33)
[2019-05-09] MEDS: CHOLECALCIFEROL (VITAMIN D3) 2,000 UNIT TABLET PO SCH (09:33)
[2019-05-09] MEDS: LOSARTAN POTASSIUM 25 MG TABLET PO SCH ×2 (09:33→21:00)
[2019-05-09] MEDS: ASPIRIN 81 MG TAB.CHEW PO SCH (09:33)
[2019-05-09 11:36] VITALS: BP_SYST 99
--- NOTE | 2019-05-09 12:01 | NUR ---
Notes- In bed, has visitor at bedside. Denies any pain or discomfort.
--- NOTE | 2019-05-09 13:02 | NUR ---
notes- 24 hour urine collection sent to lab.
--- NOTE | 2019-05-09 14:21 | NUR ---
Dietitian Recommendations *Recommend CCHO 2gm Na diet. Please see Nutritional Assessment for details. YESENIA, ADRIEN
--- NOTE | 2019-05-09 15:17 | NUR ---
notes- in bed,talking on the phone. No acute distress noted.
[2019-05-09 16:00] VITALS: BP_SYST 108
[2019-05-09 16:06] LABS: CREATININE,URINE 4.2 MG/DL (30-125)
[2019-05-09] MEDS ORDERED: POTASSIUM CHLORIDE 20 MEQ TAB.PRT.SR PO ONE (16:45)
--- NOTE | 2019-05-09 16:58 | NUR ---
MD ROUNDS Seen by Dr. Moran at bedside.
--- NOTE | 2019-05-09 16:59 | NUR ---
notes- MD ordered to decrease fluid intake to 1500 ml/day. educate patient on fluids restriction.Pt verbalize understanding.
[2019-05-09] MEDS: INSULIN REGULAR, HUMAN 100 UNITS/ML, 10 ML VIAL (humuLIN R) SUBCUT PRN (17:37)
[2019-05-09] MEDS: GABAPENTIN 300 MG CAPSULE PO SCH ×2 (17:37→21:12)
[2019-05-09] MEDS ORDERED: BISACODYL 5 MG TABLET.DR (DULCOLAX) PO ONE (18:00)
--- NOTE | 2019-05-09 18:30 | NUR ---
closing notes- In bed, eating dinner. family at bedside. Denies any chest pain or shortness of breath. All needs meet. will endorse.
--- NOTE | 2019-05-09 19:30 | NUR ---
CHANGE OF SHIFT; pt. awake, alert, oriented with visitor at bedside. noted to get short of breath on exertion. denies any chest pain. IV lock on left forearm. instructed to call and use call light for help and verbalized understanding. will reassess later.
[2019-05-09 20:30] VITALS: BP_SYST 99
--- NOTE | 2019-05-09 20:30 | NUR ---
NOTES: pretty awake, with her cell phone. noted with swelling on upper and lower extremities. able to move extremities. cardiac pattern shows sinus rhythm borderline sinus tach. on room air. turn to sides by herself. call light at bedside.
[2019-05-09] MEDS ORDERED: DOCUSATE SODIUM 100 MG CAPSULE PO ONE (21:00)
[2019-05-09] MEDS: POTASSIUM CHLORIDE 20 MEQ TAB.PRT.SR PO SCH (21:12)
[2019-05-09] MEDS: ENOXAPARIN SODIUM 40 MG/0.4 ML SYRINGE SUBCUT SCH (21:27)
--- NOTE | 2019-05-09 21:30 | NUR ---
NOTES: feeling dizzy when she gets up, reminded to call nurse for help, call light at bedside. Held [place] and carlos, SBP 85-90's. pt. needs attended. repositioned self for comfort.
[2019-05-09] MEDS: INSULIN GLARGINE 100 UNITS/ML 10 ML VIAL SUBCUT SCH (21:34)
--- NOTE | 2019-05-09 23:00 | NUR ---
NOTES: still awake when checked, pretty calm. slight weakness on rt. side noted due to history of stroke/TIA.
--- NOTE | 2019-05-09 23:33 | NUR ---
CONSULT Called Dr. Carmen's exchanged for morning consult [phone] Spoke to Jessica
--- NOTE | 2019-05-10 00:46 | NUR ---
NOTES: pt. called, feeling not good. rechecked BS 83 , jello, orange juice and sandwich given.
[2019-05-10 02:00] VITALS: BP_SYST 108
--- NOTE | 2019-05-10 02:36 | NUR ---
NOTES: pt. sleeping when checked. continue to observe. call light at bedside.
--- NOTE | 2019-05-10 04:23 | NUR ---
NOTES: remain sleeping when made rounds.
[2019-05-10 06:25] LABS: CALCIUM 8.1 mg/dL (8.4-11.0); CREATININE 0.54 mg/dL (0.55-1.30); POTASSIUM 4.2 mmol/L (3.5-5.1)
--- NOTE | 2019-05-10 06:48 | NUR ---
CLOSING NOTES; pt. awakened for BS checked, apparently daughter lying in bed , was not aware that it was not another patient. found lots of juices on the table, apparently SATELLITE DISH REPAIRER gave to pts. , reminded about fluid restriction of 1500 /24 hrs. assisted to the restroom with a walker and voided, pt. daughter remain at bedside and updated on pt. status. condition observed. will give other insulin order later. pt. sitting at bedside. pt. needs attended, call light within reach.
[2019-05-10] MEDS: INSULIN NPH/REGULAR 70-30, 100 UNITS/ML, 10 ML VIAL SUBCUT SCH ×2 (07:38→17:00)
--- NOTE | 2019-05-10 07:40 | NUR ---
opening note patient is resting in bed, A&Ox4, assessment completed, daughter at the bedside, educated filtration plant mechanic light system and plan of care, patient verbalized understanding, no signs of distress, patient denies any pain at this time she stated she wants to rest, no other needs at this time, fall/safety precautions in place, IV dressing in place.
[2019-05-10 08:05] VITALS: BP_SYST 100
[2019-05-10] MEDS: POTASSIUM CHLORIDE 20 MEQ TAB.PRT.SR PO SCH (08:51)
[2019-05-10] MEDS: FUROSEMIDE 40 MG TABLET PO SCH (08:52)
[2019-05-10] MEDS: PANTOPRAZOLE SODIUM 40 MG TAB PO SCH (08:53)
[2019-05-10] MEDS: LOSARTAN POTASSIUM 25 MG TABLET PO SCH (08:53)
[2019-05-10] MEDS: CALCIUM 500 MG/TAB PO SCH ×2 (08:53→14:15)
[2019-05-10] MEDS: ASPIRIN 81 MG TAB.CHEW PO SCH (08:53)
[2019-05-10] MEDS: GABAPENTIN 300 MG CAPSULE PO SCH ×3 (08:53→16:55)
[2019-05-10] MEDS: CHOLECALCIFEROL (VITAMIN D3) 2,000 UNIT TABLET PO SCH (08:53)
[2019-05-10] MEDS ORDERED: DOCUSATE SODIUM 100 MG CAPSULE PO SCH (09:00)
--- NOTE | 2019-05-10 09:50 | NUR ---
spoke to Dr Obregon discontinued the lasix and medically cleared by him but has not taken her off of fluid restriction per recommendation, I spoke to the patient and daughter about this and they verbalized understanding, I educated with her about limited to her asking for juice and water so that she does not pass the fluid restriction amount so early in the day.
--- NOTE | 2019-05-10 11:50 | NUR ---
accuchek patient resting in bed, accuchek done and sliding scale needed per MD order, educated on medication use and side effects, patient verbalized understanding, no other needs addressed at this time, fall/safety precautions in place.
[2019-05-10] MEDS: INSULIN REGULAR, HUMAN 100 UNITS/ML, 10 ML VIAL (humuLIN R) SUBCUT PRN ×2 (11:54→16:59)
[2019-05-10 12:20] VITALS: BP_SYST 93
--- NOTE | 2019-05-10 13:23 | NUR ---
rounds patient is resting in bed, no signs of distress, no needs addressed at this time, fall/safety precautions in place, reinforced education about the fluid restriction and that she cannot be asking dietary for more coffee and water bottles so she doesnt pass her limit during the day shift.
[2019-05-10] MEDS ORDERED: LOSA25TA3 PO (15:02)
--- NOTE | 2019-05-10 15:30 | NUR ---
Dr Moran rounds saw patient in the room, explained to her about discharge instructions and self care at home, Dr Moran will put discharge order but patient stated she cannot get a ride until 1900, charge nurse is aware.
[2019-05-10 16:36] VITALS: BP_SYST 116
--- NOTE | 2019-05-10 16:41 | NUR ---
Metal Fabricator Helper Note At patient request, VACUUM METALIZER OPERATOR provided disability papers and information to patient along with a letter for work stating the days the patient was hospitalized.
--- NOTE | 2019-05-10 16:56 | NUR ---
accuchek and medications patient resting in bed, accuchek done and sliding scale needed per MD order, educated on medication use and side effects, patient verbalized understanding, no other needs addressed at this time, fall/safety precautions in place.
[2019-05-10 18:40] VITALS: BP_SYST 116
--- NOTE | 2019-05-10 19:00 | NUR ---
closing note patient is resting in bed, no signs of distress, fall/safety precautions in place, IV dressing in place, will endorse report to noc shift nurse that patient will be discharged and she is waiting for her to come pick her up, patient is off of fluid restriction. Addendum: 05/10/19 at 1921 by Saida Jaramillo RN Dr Moran called back I asked him about the new prescription he put about the losartan, he stated that she should ask her PCP about the medication about whether or not she needs it, I informed that patient about this.
--- NOTE | 2019-05-10 19:09 | NUR ---
PAGED I PAGED DR. BARRIENTOS @ [phone] I SPOKE WITH RODDY BARRIENTOS CALLED BACK @ [phone]
--- NOTE | 2019-05-10 19:19 | NUR ---
OPENING NOTE RECEIVED CARE OF PT AND SBAR REPORT. PT IS AAOX4, SITTING UP IN BED WITH FAMILY AT BEDSIDE READY TO TAKE PT HOME. AMOS BARAKAT WENT OVER DISCHARGE INSTRUCTIONS WITH PT AND PT SIGNED DISCHARGE PACKET. INFORMED PT THAT NURSE WILL BE PRESENT TO D/C IV AND WHEEL HER OUT TO CAR.
--- NOTE | 2019-05-10 19:26 | NUR ---
DISCHARGE PT'S IV D/C'D. IDENTIFICATION BAND REMOVED. PT ASSISTED TO WHEELCHAIR. ALL BELONGINGS WITH PT. PT WHEELED OUT TO CAR BY CHARLES PEREZ. SAFETY MAINTAINED.
[2019-05-11] MEDS ORDERED: LOSARTAN POTASSIUM 25 MG TABLET PO SCH (09:00)
== END 2019-05-10 19:26 | disposition home or self-care (01) | DRG 556 ==
LOC: SED 01:50 → STU 04:53 → OBSVTOIN 04:53 → STU 05:03
PROVIDERS: ADMIT Internal Medicine; ATTEND Internal Medicine
DX: M79.89 Other specified soft tissue disorders (principal); E44.0 Moderate protein-calorie malnutrition; Z68.41 Body mass index [BMI] 40.0-44.9, adult; I11.0 Hypertensive heart disease with heart failure; R60.1 Generalized edema; K21.9 Gastro-esophageal reflux disease without esophagitis; E66.01 Morbid (severe) obesity due to excess calories; E83.51 Hypocalcemia; Z79.4 Long term (current) use of insulin; G89.4 Chronic pain syndrome; E83.39 Other disorders of phosphorus metabolism; E11.21 Type 2 diabetes mellitus with diabetic nephropathy; K74.60 Unspecified cirrhosis of liver; E88.09 Other disorders of plasma-protein metabolism, not elsewhere classified; Z91.012 Allergy to eggs; Z91.09 Other allergy status, other than to drugs and biological substances; Z79.82 Long term (current) use of aspirin; Z79.899 Other long term (current) drug therapy; Z86.73 Personal history of transient ischemic attack (TIA), and cerebral infarction without residual deficits; Z90.710 Acquired absence of both cervix and uterus; I50.9 Heart failure, unspecified
CPT/HCPCS: 36415; 71045; 76700-TC; 80048; 80053; 80061; 81003; 82570; 82962; 83036; 83735-TC; 83880; 84100-TC; 84156; 84311; 84484; 84550-TC; 84702-TC; 84703; 85025; 85379; 85610-TC; 85730-TC; 93005; 93306; 93970; 99285; G0378; J1650; J1815; J1940

== ENCOUNTER 2019-05-13 16:36 | Inpatient (IN) | payer BC ==
[~2019-05-13] VITALS: Ht 154.9 cm; Wt 99.8 kg
[~2019-05-13 16:36] MED LIST changes: +LOSA25TA3 PO
--- NOTE | 2019-05-13 16:55 | NUR ---
ER Dr. Nascimento at bedside examining patient.
--- NOTE | 2019-05-13 17:00 | NUR ---
Patient presented to ER with C/o hypoglycemia since this AM, Patient A&Ox4, afebrile, arrive to ER via wheelchair.
--- NOTE | 2019-05-13 17:00 | NUR ---
Patient presented to ER with C/o hypoglycemia since this AM, Patient A&Ox4, afebrile, arrive to ER via wheelchair, patient denies pain, denies N/V/D. Patient reports self medicating with 20 units insulin this am afreer glucose check, 200. Patient felt weak and sought medical car at Urgent Care. UC referred pt to ER.
[2019-05-13] MEDS: DEXTROSE 50% JECT 50 ML DISP.SYRIN IVP ONE ×2 (17:03→19:18)
[2019-05-13] MEDS ORDERED: DEXTROSE 50% JECT 50 ML DISP.SYRIN ONE (17:11)
--- NOTE | 2019-05-13 17:15 | NUR ---
Per Jefferson RN IV line infiltrate to Right arm, warm compress applied
[2019-05-13 17:36] LABS: BASOPHILS # (AUTO) 0.1 K/uL (0.0-0.2); BASOPHILS % (AUTO) 0.8 % (0.0-2.0); EOSINOPHILS # (AUTO) 0.5 K/uL (0.0-0.4); EOSINOPHILS % (AUTO) 6.3 % (0.0-4.0); HEMATOCRIT 37.3 % (36-48); HEMOGLOBIN 12.6 g/dL (12.0-16.0); LYMPHOCYTES # (AUTO) 2.9 K/uL (1.0-5.5); LYMPHOCYTES % (AUTO) 33.4 % (20.5-51.5); MEAN CORPUSCULAR HEMOGLOBIN 29 pg (27-31); MEAN CORPUSCULAR HGB CONC 34 % (32-36); MEAN CORPUSCULAR VOLUME 84 fL (79.0-98.0); MONOCYTES # (AUTO) 0.7 K/uL (0.0-1.0); MONOCYTES % (AUTO) 7.6 % (1.7-9.3); NEUTROPHILS # (AUTO) 4.5 K/uL (1.8-7.7); NEUTROPHILS % (AUTO) 51.9 % (40.0-70.0); PLATELET COUNT (AUTO) 190 K/uL (130-430); RED BLOOD CELL COUNT(AUTO) 4.42 MIL/uL (4.2-6.2); RED CELL DISTRIBUTION WIDTH 13.5 % (9.0-15.0); WHITE BLOOD COUNT (AUTO) 8.6 K/uL (4.8-10.8)
[2019-05-13 17:45] LABS: CALCIUM 8.3 mg/dL (8.4-11.0); CREATININE 0.53 mg/dL (0.55-1.30); POTASSIUM 3.3 mmol/L (3.5-5.1)
[2019-05-13 17:49] LABS: ALBUMIN 2.9 g/dL (3.4-4.8); TOTAL BILIRUBIN 0.2 mg/dL (0.0-1.0)
--- NOTE | 2019-05-13 19:12 | NUR ---
REPORT GIVEN TO DIEGO TRINIDAD
[2019-05-13] MEDS ORDERED: INSU100V9 SQ (19:47)
--- NOTE | 2019-05-13 19:47 | NUR ---
Medication reconciliation completed with information provided by patient. Any prior medication reconciliation on file was reviewed and corrected.
--- NOTE | 2019-05-13 21:28 | NUR ---
Pt is resting comfortably in bed, no acute distress noted at this time. Will continue to monitor.
--- NOTE | 2019-05-13 21:47 | NUR ---
Dr. Moran at bedside for evaluation
--- NOTE | 2019-05-13 22:23 | NUR ---
Patient will be admitted to care of Dr. Moran. Admitted to telemetry unit. Will go to room 104A. Belongings list completed. Summary report printed. Report will be given at bedside.
[2019-05-13 22:31] VITALS: BP_SYST 117
--- NOTE | 2019-05-13 22:31 | NUR ---
ADMISSION NOTE Received patient from ER via crystal, received report from AMOS CORTEZ. Patient admitted with diagnosis of HYPOGLYCEMIA. Patient oriented to hospital routine, call light, toileting and safety-patient verbalized understanding.
--- NOTE | 2019-05-13 22:42 | NUR ---
[facility] Licensed nurse present. IV present no signs or symptoms of infiltration.
[2019-05-13] MEDS ORDERED: POTASSIUM CHLORIDE 20 MEQ TAB.PRT.SR PO ONE (22:45)
[2019-05-13] MEDS ORDERED: DEXTROSE 50% JECT 50 ML DISP.SYRIN IVP PRN (22:45)
--- NOTE | 2019-05-13 23:00 | NUR ---
initial notes: pt is awake, alert, oriented x 4. no pain. not distress, complain of hypoglycemia. vital sign are stable and within normal limit. pt has iv to left ac gauge 20-intact. pt complain that her right forearm is swollen and sour due to infiltration of d50 iv push. explained to pt her plan of care. medication and orientation to room. pt verbalized understanding. family at bedside. scd applied to both feet. needs attended. call light in reach. low bed position. will monitor.
--- NOTE | 2019-05-14 01:00 | NUR ---
sleeping, stable, no sob. no pain. family member at bedside.
--- NOTE | 2019-05-14 02:54 | NUR ---
sleeping, stable, no sob. no pain. family member at bedside.
--- NOTE | 2019-05-14 04:37 | NUR ---
sleeping quietly. no pain. no sob. not distress. stable. call light in reach.
--- NOTE | 2019-05-14 05:21 | NUR ---
CONSULTATION PAGED/CALLED Reason for Consultation: ALOC Person Who was Notified: KANCHAN Consulting Physician: FIFI BUI Desk Interviewer Specialty: NEURO Ordering Physician: DR. BARRIENTOS
[2019-05-14] MEDS ORDERED: ACETAMINOPHEN 650 MG/20.3 ML UDC PO PRN (06:00)
[2019-05-14] MEDS ORDERED: ACETAMINOPHEN 325 MG TABLET PO PRN (06:15)
[2019-05-14] MEDS ORDERED: PANTOPRAZOLE SODIUM 40 MG TAB PO SCH (07:00)
--- NOTE | 2019-05-14 07:04 | NUR ---
closing: pt is resting on her side. no sign of pain. no distress. no sob. daughter at bedside. needs attended. call light in reach. will give bedside report to am rn.
--- NOTE | 2019-05-14 07:30 | NUR ---
Opening note patient resting in bed, A/Ox4, daughter at bedside. no complaints of pain. IV patent, intact. no bleeding. No SOB. On safety and aspiration precautions, HOB kept elevated, bed alarm on. bed in lowest position, 3 side rails up. call light within reach. patient in stable condition. Will continue to monitor.
[2019-05-14 07:46] LABS: BASOPHILS % (AUTO) 0.4 % (0.0-2.0); EOSINOPHILS # (AUTO) 0.5 K/uL (0.0-0.4); EOSINOPHILS % (AUTO) 5.6 % (0.0-4.0); HEMATOCRIT 36.9 % (36-48); HEMOGLOBIN 12.5 g/dL (12.0-16.0); LYMPHOCYTES # (AUTO) 2.7 K/uL (1.0-5.5); LYMPHOCYTES % (AUTO) 32.4 % (20.5-51.5); MEAN CORPUSCULAR HEMOGLOBIN 29 pg (27-31); MEAN CORPUSCULAR HGB CONC 34 % (32-36); MEAN CORPUSCULAR VOLUME 84 fL (79.0-98.0); MONOCYTES # (AUTO) 0.6 K/uL (0.0-1.0); MONOCYTES % (AUTO) 6.7 % (1.7-9.3); NEUTROPHILS # (AUTO) 4.6 K/uL (1.8-7.7); NEUTROPHILS % (AUTO) 54.9 % (40.0-70.0); PLATELET COUNT (AUTO) 205 K/uL (130-430); RED BLOOD CELL COUNT(AUTO) 4.38 MIL/uL (4.2-6.2); RED CELL DISTRIBUTION WIDTH 13.9 % (9.0-15.0); WHITE BLOOD COUNT (AUTO) 8.5 K/uL (4.8-10.8)
[2019-05-14 07:55] LABS: ALBUMIN 2.6 g/dL (3.4-4.8); CALCIUM 8.2 mg/dL (8.4-11.0); CREATININE 0.37 mg/dL (0.55-1.30); PHOSPHORUS 4.2 mg/dL (2.7-4.5); TOTAL BILIRUBIN 0.3 mg/dL (0.0-1.0)
[2019-05-14 08:21] VITALS: BP_SYST 102
[2019-05-14] MEDS ORDERED: ASPIRIN 81 MG TAB.CHEW PO SCH (09:00)
--- NOTE | 2019-05-14 09:30 | NUR ---
medications All morning medications given as ordered. No adverse side effects. no nausea, no vomiting. No complaints of pain.
--- NOTE | 2019-05-14 11:30 | NUR ---
Physical therapy patient walked with physical therapy, in the hallway and around the nursing station and back to bed with front wheeled walker. No complaints of pain. Patient in stable condition.
[2019-05-14] MEDS: INSULIN REGULAR, HUMAN 100 UNITS/ML, 10 ML VIAL (humuLIN R) SUBCUT PRN ×2 (11:31→17:25)
[2019-05-14 12:00] VITALS: BP_SYST 112
--- NOTE | 2019-05-14 13:00 | NUR ---
Lunch patient sitting up in bed at this time, eating lunch, tolerating well. no nausea, no vomiting noted. patient in stable condition.
--- NOTE | 2019-05-14 15:00 | NUR ---
ambulation patient ambulated to the bathroom with steady gait and back to bed. patient in stable condition.
--- NOTE | 2019-05-14 15:51 | NUR ---
Dietitian Recommendation [facility]. [facility] 2. If PO intake/appetite does not improve by next visit, consider ONS. Please see Nutrition Assessment for further details. LT, RD
[2019-05-14 16:30] VITALS: BP_SYST 114
--- NOTE | 2019-05-14 17:45 | NUR ---
Dinner patient sitting up in bed at this time, eating dinner, tolerating well. No nausea, no vomiting noted.
[2019-05-14 18:13] VITALS: BP_SYST 114
--- NOTE | 2019-05-14 19:30 | NUR ---
D/C Patient Patient given medication reconciliation form and D/C instructions. Exit Care provided. Patient verbalized understanding. MD discussed with patient the results and treatment provided. Ambulatory with steady gait for discharge to home. Patient in stable condition, ID band removed. IV catheter removed, intact and dressing applied, no active bleeding.Patient educated on pain management. All belongings sent with patient.
== END 2019-05-14 19:30 | disposition home or self-care (01) | DRG 637 ==
LOC: SED 16:36 → STU 21:48
PROVIDERS: ADMIT Internal Medicine; ATTEND Internal Medicine
DX: E11.649 Type 2 diabetes mellitus with hypoglycemia without coma (principal); G93.41 Metabolic encephalopathy; E44.0 Moderate protein-calorie malnutrition; I69.351 Hemiplegia and hemiparesis following cerebral infarction affecting right dominant side; Z68.41 Body mass index [BMI] 40.0-44.9, adult; I10 Essential (primary) hypertension; E66.01 Morbid (severe) obesity due to excess calories; E11.21 Type 2 diabetes mellitus with diabetic nephropathy; F41.9 Anxiety disorder, unspecified; F32.9 Major depressive disorder, single episode, unspecified; E83.39 Other disorders of phosphorus metabolism; E83.51 Hypocalcemia; Z90.710 Acquired absence of both cervix and uterus; Z98.51 Tubal ligation status; Z88.8 Allergy status to other drugs, medicaments and biological substances; Z79.82 Long term (current) use of aspirin; Z91.012 Allergy to eggs; Z78.0 Asymptomatic menopausal state
CPT/HCPCS: 36415; 70450-TC; 80053; 80061; 81002; 81025; 82962; 83735-TC; 84100-TC; 84703; 85025; 87081; 93005; 96374; 99285; G0378; J1815

== ENCOUNTER 2020-11-22 21:25 | Inpatient (IN) | payer BC ==
[~2020-11-22] VITALS: Ht 154.9 cm; Wt 108.9 kg
[~2020-11-22 21:25] MED LIST changes: -HYDR12.55 PO; +INSU100V9 SQ; -INSU100V9 SUBCUT; -INSU10VI4 SUBCUT; -LIRA0.6P SQ; -LISI-209 PO; -LOSA25TA3 PO; +OMEP40CA13 PO; -OMEP40CA33 PO; -TRAM50TA92 PO
[2020-11-22 21:33] VITALS: BP_SYST 136
[2020-11-22] MEDS ORDERED: DIF100 PO (21:50)
[2020-11-22] MEDS ORDERED: DICY10CA13 PO (21:50)
[2020-11-22] MEDS ORDERED: INSU100V3 SQ (21:50)
[2020-11-22] MEDS ORDERED: POLY17PO4 PO (21:50)
[2020-11-22] MEDS ORDERED: ALPR0.25 PO (21:50)
[2020-11-22] MEDS ORDERED: HYDR25TA4 PO (21:50)
[2020-11-22 23:20] LABS: BILIRUBIN,URINE NEGATIVE (NEGATIVE); BLOOD, URINE NEGATIVE (NEGATIVE); CLARITY/URINE CLEAR (CLEAR); COLOR,URINE YELLOW (YELLOW); GLUCOSE,URINE 3+ (NEGATIVE); KETONES,URINE NEGATIVE (NEGATIVE); LEUKOCYTE ESTERASE ,URINE NEGATIVE (NEGATIVE); NITRITE, URINE NEGATIVE (NEGATIVE); PH,URINE 5.5 (5.0-8.0); PROTEIN URINE NEGATIVE (NEGATIVE); UROBILINOGEN,URINE 0.2 (0.2-1.0)
[2020-11-22 23:23] LABS: BASOPHILS # (AUTO) 0.1 K/uL (0.0-0.2); BASOPHILS % (AUTO) 0.7 % (0.0-2.0); EOSINOPHILS # (AUTO) 0.5 K/uL (0.0-0.4); EOSINOPHILS % (AUTO) 4.8 % (0.0-4.0); HEMATOCRIT 40.5 % (36-48); HEMOGLOBIN 13.8 g/dL (12.0-16.0); LYMPHOCYTES # (AUTO) 3.2 K/uL (1.0-5.5); LYMPHOCYTES % (AUTO) 32.9 % (20.5-51.5); MEAN CORPUSCULAR HEMOGLOBIN 29 pg (27-31); MEAN CORPUSCULAR HGB CONC 34 % (32-36); MEAN CORPUSCULAR VOLUME 85 fL (79.0-98.0); MONOCYTES # (AUTO) 0.6 K/uL (0.0-1.0); MONOCYTES % (AUTO) 5.7 % (1.7-9.3); NEUTROPHILS # (AUTO) 5.4 K/uL (1.8-7.7); NEUTROPHILS % (AUTO) 55.9 % (40.0-70.0); PLATELET COUNT (AUTO) 235 K/uL (130-430); RED BLOOD CELL COUNT(AUTO) 4.77 MIL/uL (4.2-6.2); RED CELL DISTRIBUTION WIDTH 13.4 % (9.0-15.0); WHITE BLOOD COUNT (AUTO) 9.7 K/uL (4.8-10.8)
[2020-11-22 23:30] LABS: BACTERIA,URINE FEW /HPF (None Seen); RBC,URINE 0-3 /HPF (0-3); WBC,URINE 0-3 /HPF (0-3)
[2020-11-22 23:40] LABS: CALCIUM 8.7 mg/dL (8.4-11.0); CREATININE 0.59 mg/dL (0.55-1.30); POTASSIUM 3.6 mmol/L (3.5-5.1)
[2020-11-22 23:49] LABS: ALBUMIN 3.3 g/dL (3.4-4.8); TOTAL BILIRUBIN 0.1 mg/dL (0.0-1.0)
[2020-11-23] MEDS ORDERED: NACL 0.9% 1,000 ML IV ONE ×2 (00:15→03:15)
[2020-11-23] MEDS ORDERED: ONDANSETRON HCL 4 MG/2 ML VIAL IVP ONE (00:15)
[2020-11-23] MEDS ORDERED: MAG HYDROX/AL HYDROX/SIMETH 30 ML, DICYCLOMINE HCL 20 MG, LIDOCAINE VISCOUS 2% 15ML (PO... PO ONE ×3 (00:15)
[2020-11-23] MEDS ORDERED: KETOROLAC TROMETHAMINE 30 MG VIAL IVP ONE (00:45)
[2020-11-23 04:41] VITALS: BP_SYST 124
[2020-11-23] MEDS ORDERED: MORPHINE 4 MG/ML INJ. SYRINGE IVP ONE (05:00)
[2020-11-23 07:30] VITALS: BP_SYST 118
[2020-11-23 08:16] LABS: PROTHROMBIN TIME 9.9 SECS (9.5-12.5)
[2020-11-23] MEDS ORDERED: HYDROmorphone 1 MG INJ. 1 MG/ML CARTRIDGE IVP ONE (10:15)
[2020-11-23] MEDS ORDERED: NALOXONE HCL 0.4 MG/ML AMP (NARCAN) IVP PRN ×2 (10:15→12:45)
[2020-11-23] MEDS ORDERED: DEXTROSE 50% JECT 50 ML DISP.SYRIN ONE (10:43)
[2020-11-23] MEDS ORDERED: fentaNYL CITRATE/PF 100 MCG/2 ML AMP IVP PRN (12:30)
[2020-11-23] MEDS ORDERED: ONDANSETRON HCL 4 MG/2 ML VIAL IVP PRN ×2 (12:30→12:45)
[2020-11-23] MEDS ORDERED: OXYCODONE/ACETAMINOPHEN 5-325 TABLET PO PRN (12:45)
[2020-11-23] MEDS ORDERED: HYDROcodone/ACETAMIN 5-325 MG TAB (NORCO/ VICODIN) PO PRN (12:45)
[2020-11-23] MEDS: fentaNYL CITRATE/PF 100 MCG/2 ML AMP IVP PRN ×2 (13:29→13:34)
[2020-11-23] MEDS ORDERED: fentaNYL CITRATE/PF 100 MCG/2 ML AMP ONE (13:29)
[2020-11-23 14:36] VITALS: BP_SYST 126
[2020-11-23] MEDS: OXYCODONE/ACETAMINOPHEN 5-325 TABLET PO PRN ×2 (15:46→22:51)
[2020-11-23 16:19] VITALS: BP_SYST 147
[2020-11-23 20:00] VITALS: BP_SYST 101
[2020-11-24] VITALS: BP_SYST 126
[2020-11-24 08:00] VITALS: BP_SYST 112
[2020-11-24] MEDS ORDERED: SIME125C PO (11:30)
[2020-11-24] MEDS ORDERED: OXYC-128 PO (11:34)
[2020-11-24 11:47] VITALS: BP_SYST 112
== END 2020-11-24 13:05 | disposition home or self-care (01) | DRG 758 ==
LOC: SED 21:25 → SMU 11-23 03:15
PROVIDERS: ADMIT Specialist; ATTEND Specialist
DX: N70.11 Chronic salpingitis (principal); I69.351 Hemiplegia and hemiparesis following cerebral infarction affecting right dominant side; E11.9 Type 2 diabetes mellitus without complications; F41.9 Anxiety disorder, unspecified; I10 Essential (primary) hypertension; Z88.8 Allergy status to other drugs, medicaments and biological substances; Z20.822 Contact with and (suspected) exposure to COVID-19; Z91.012 Allergy to eggs; Z79.899 Other long term (current) drug therapy; Z79.82 Long term (current) use of aspirin; Z90.710 Acquired absence of both cervix and uterus; Z98.51 Tubal ligation status; Z83.3 Family history of diabetes mellitus; Z82.49 Family history of ischemic heart disease and other diseases of the circulatory system
CPT/HCPCS: 36415; 71045; 74021; 76830-TC; 76857; 80053; 81000-TC; 83605; 83690-TC; 85025; 85610-TC; 85651-TC; 85730-TC; 87081; 93005; 96361; 96374; J1170; J1885; J2270; J3010; J7030

== ENCOUNTER 2021-01-20 19:11 | Inpatient (IN) | payer BC, SELFPAY ==
[~2021-01-20] VITALS: Ht 154.9 cm; Wt 112.0 kg
[~2021-01-20 19:11] MED LIST changes: -ALBMDI INH; +ALPR0.25 PO; +DICY10CA13 PO; +DIF100 PO; -GABA-529 PO; +HYDR25TA4 PO; +INSU100V3 SQ; +OXYC-128 PO; +POLY17PO4 PO; +SIME125C PO
[2021-01-20 19:25] VITALS: BP_SYST 135
[2021-01-20] MEDS ORDERED: MORPHINE 4 MG INJ. 4 MG/ML VIAL IVP ONE ×2 (19:45→22:45)
[2021-01-20] MEDS ORDERED: ONDANSETRON HCL 4 MG/2 ML VIAL IVP ONE ×2 (19:45→22:45)
[2021-01-20] MEDS ORDERED: KETOROLAC TROMETHAMINE 30 MG VIAL IVP ONE (19:45)
[2021-01-20] MEDS ORDERED: NACL 0.9% 1,000 ML IV ONE (19:45)
[2021-01-20 19:51] LABS: BILIRUBIN,URINE NEGATIVE (NEGATIVE); BLOOD, URINE 3+ (NEGATIVE); COLOR,URINE YELLOW (YELLOW); GLUCOSE,URINE NEGATIVE (NEGATIVE); KETONES,URINE TRACE (NEGATIVE); NITRITE, URINE POSITIVE (NEGATIVE); PH,URINE 8.5 (5.0-8.0); PROTEIN URINE 2+ (NEGATIVE); UROBILINOGEN,URINE 0.2 (0.2-1.0)
[2021-01-20] MEDS ORDERED: MORPHINE 2 MG/ML INJ. SYRINGE ONE (19:51)
[2021-01-20 20:00] LABS: BASOPHILS % (AUTO) 0.4 % (0.0-2.0); EOSINOPHILS # (AUTO) 0.2 K/uL (0.0-0.4); HEMATOCRIT 38.2 % (36-48); HEMOGLOBIN 12.8 g/dL (12.0-16.0); LYMPHOCYTES # (AUTO) 1.9 K/uL (1.0-5.5); LYMPHOCYTES % (AUTO) 16.9 % (20.5-51.5); MEAN CORPUSCULAR HEMOGLOBIN 28 pg (27-31); MEAN CORPUSCULAR HGB CONC 34 % (32-36); MEAN CORPUSCULAR VOLUME 83 fL (79.0-98.0); MONOCYTES # (AUTO) 0.7 K/uL (0.0-1.0); MONOCYTES % (AUTO) 6.3 % (1.7-9.3); NEUTROPHILS # (AUTO) 8.5 K/uL (1.8-7.7); NEUTROPHILS % (AUTO) 74.4 % (40.0-70.0); PLATELET COUNT (AUTO) 197 K/uL (130-430); RED BLOOD CELL COUNT(AUTO) 4.62 MIL/uL (4.2-6.2); RED CELL DISTRIBUTION WIDTH 13.4 % (9.0-15.0); WHITE BLOOD COUNT (AUTO) 11.4 K/uL (4.8-10.8)
[2021-01-20 20:02] LABS: CLARITY/URINE HAZY (CLEAR); LEUKOCYTE ESTERASE ,URINE 2+ (NEGATIVE)
[2021-01-20 20:04] LABS: BACTERIA,URINE MODERATE /HPF (None Seen); MUCUS,URINE None Seen /LPF (None Seen); WBC,URINE 50-80 /HPF (0-3)
[2021-01-20 20:05] LABS: CALCIUM 8.6 mg/dL (8.4-11.0); CREATININE 0.61 mg/dL (0.55-1.30); POTASSIUM 3.5 mmol/L (3.5-5.1)
[2021-01-20 20:11] LABS: ALBUMIN 3.1 g/dL (3.4-4.8); TOTAL BILIRUBIN 0.5 mg/dL (0.0-1.0)
[2021-01-20] MEDS ORDERED: cefTRIAXone 2 GM VIAL ONE (22:43)
[2021-01-20] MEDS ORDERED: LIRA0.6P2 SQ (23:06)
[2021-01-21 01:03] VITALS: BP_SYST 91
[2021-01-21] MEDS: cefTRIAXone 1 GM IVPB PREMIX 50 ML IV SCH (02:35)
[2021-01-21] MEDS: NACL 0.9% 1,000 ML IV SCH ×3 (02:43→23:40)
[2021-01-21] MEDS: ACETAMINOPHEN 325 MG TABLET PO PRN ×2 (05:55→23:39)
[2021-01-21 06:46] LABS: BASOPHILS # (AUTO) 0.1 K/uL (0.0-0.2); BASOPHILS % (AUTO) 0.6 % (0.0-2.0); EOSINOPHILS # (AUTO) 0.4 K/uL (0.0-0.4); EOSINOPHILS % (AUTO) 3.4 % (0.0-4.0); HEMATOCRIT 36.5 % (36-48); LYMPHOCYTES % (AUTO) 28.4 % (20.5-51.5); MEAN CORPUSCULAR HEMOGLOBIN 28 pg (27-31); MEAN CORPUSCULAR HGB CONC 33 % (32-36); MEAN CORPUSCULAR VOLUME 85 fL (79.0-98.0); MONOCYTES % (AUTO) 9.8 % (1.7-9.3); NEUTROPHILS % (AUTO) 57.8 % (40.0-70.0); PLATELET COUNT (AUTO) 186 K/uL (130-430); RED CELL DISTRIBUTION WIDTH 13.7 % (9.0-15.0); WHITE BLOOD COUNT (AUTO) 10.4 K/uL (4.8-10.8)
[2021-01-21 07:21] LABS: ALBUMIN 2.5 g/dL (3.4-4.8); CALCIUM 8.2 mg/dL (8.4-11.0); CREATININE 0.45 mg/dL (0.55-1.30); POTASSIUM 3.6 mmol/L (3.5-5.1); TOTAL BILIRUBIN 0.4 mg/dL (0.0-1.0)
[2021-01-21 09:42] VITALS: BP_SYST 116
[2021-01-21] MEDS ORDERED: ASPIRIN 81 MG TAB.CHEW PO ONE (11:15)
[2021-01-21 12:04] VITALS: BP_SYST 105
[2021-01-21] MEDS: traMADol HCL HCL 50 MG TABLET (ULTRAM) PO SCH ×2 (14:37→19:05)
[2021-01-21 16:05] VITALS: BP_SYST 112
[2021-01-21] MEDS: INSULIN LISPRO SLIDING SCALE 100 UNITS/ML VIAL (humaLOG) SUBCUT PRN ×2 (19:04→21:51)
[2021-01-21 20:00] VITALS: BP_SYST 117
[2021-01-21] MEDS: INSULIN GLARGINE 100 UNITS/ML 10 ML VIAL SUBCUT SCH (21:49)
[2021-01-22] MEDS: traMADol HCL HCL 50 MG TABLET (ULTRAM) PO SCH ×5 (00:09→23:02)
[2021-01-22 00:18] VITALS: BP_SYST 113
[2021-01-22] MEDS: ACETAMINOPHEN 325 MG TABLET PO PRN ×2 (05:36→22:28)
[2021-01-22] MEDS: NACL 0.9% 1,000 ML IV SCH ×3 (06:23→22:30)
[2021-01-22 06:34] LABS: BASOPHILS % (AUTO) 0.5 % (0.0-2.0); EOSINOPHILS # (AUTO) 0.5 K/uL (0.0-0.4); EOSINOPHILS % (AUTO) 7.6 % (0.0-4.0); HEMATOCRIT 33.9 % (36-48); HEMOGLOBIN 11.4 g/dL (12.0-16.0); LYMPHOCYTES # (AUTO) 2.9 K/uL (1.0-5.5); LYMPHOCYTES % (AUTO) 39.6 % (20.5-51.5); MEAN CORPUSCULAR HEMOGLOBIN 28 pg (27-31); MEAN CORPUSCULAR HGB CONC 34 % (32-36); MEAN CORPUSCULAR VOLUME 84 fL (79.0-98.0); MONOCYTES # (AUTO) 0.7 K/uL (0.0-1.0); NEUTROPHILS % (AUTO) 42.3 % (40.0-70.0); PLATELET COUNT (AUTO) 176 K/uL (130-430); RED BLOOD CELL COUNT(AUTO) 4.03 MIL/uL (4.2-6.2); RED CELL DISTRIBUTION WIDTH 13.2 % (9.0-15.0); WHITE BLOOD COUNT (AUTO) 7.2 K/uL (4.8-10.8)
[2021-01-22 07:07] LABS: AMYLASE 26 U/L (0-100); LIPASE 53 U/L (73-393)
[2021-01-22] MEDS: ASPIRIN 81 MG TAB.CHEW PO SCH (08:35)
[2021-01-22 09:19] VITALS: BP_SYST 120
[2021-01-22 09:59] LABS: THYROID STIMULATING HORMONE < 0.01 uIu/mL (0.36-3.74)
[2021-01-22 10:03] VITALS: BP_SYST 120
[2021-01-22 10:16] LABS: CHOLESTEROL 123 mg/dL (<200); HDL CHOLESTEROL 64 mg/dL (>55); LDL CHOLESTEROL 57 mg/dL (<100); TRIGLYCERIDES 40 mg/dL (30-150)
[2021-01-22] MEDS ORDERED: GENTAMICIN 100 mg/50 mL NS 50 ML IV ONE (10:45)
[2021-01-22] MEDS: ONDANSETRON HCL 4 MG/2 ML VIAL IVP PRN (11:19)
[2021-01-22] MEDS: INSULIN LISPRO SLIDING SCALE 100 UNITS/ML VIAL (humaLOG) SUBCUT PRN ×2 (11:29→21:30)
[2021-01-22] MEDS ORDERED: IPRATROPIUM/ALBUTEROL SULFATE 3 ML AMPUL.NEB (DUONEB) ONE ×2 (11:31→15:22)
[2021-01-22] MEDS: IPRATROPIUM/ALBUTEROL SULFATE 3 ML AMPUL.NEB (DUONEB) INH SCH ×4 (11:36→23:00)
[2021-01-22] MEDS ORDERED: DIPHENHYDRAMINE HCL 50 MG CAPSULE PO PRN (11:45)
[2021-01-22 12:34] VITALS: BP_SYST 124
[2021-01-22] MEDS: DIPHENHYDRAMINE HCL 25 MG CAPSULE PO PRN (12:34)
[2021-01-22 16:50] VITALS: BP_SYST 127
[2021-01-22 20:00] VITALS: BP_SYST 126
[2021-01-22] MEDS: INSULIN GLARGINE 100 UNITS/ML 10 ML VIAL SUBCUT SCH (21:29)
[2021-01-22] MEDS ORDERED: cefTRIAXone 1 GM IVPB PREMIX 50 ML IV ONE (22:54)
[2021-01-22] MEDS: cefTRIAXone 1 GM IVPB PREMIX 50 ML IV SCH (22:59)
[2021-01-23] MEDS: DIPHENHYDRAMINE HCL 25 MG CAPSULE PO PRN ×2 (00:08→21:50)
[2021-01-23 00:10] VITALS: BP_SYST 118
[2021-01-23] MEDS: IPRATROPIUM/ALBUTEROL SULFATE 3 ML AMPUL.NEB (DUONEB) INH SCH ×6 (03:00→23:00)
[2021-01-23] MEDS: NACL 0.9% 1,000 ML IV SCH ×2 (05:26→17:18)
[2021-01-23] MEDS: ACETAMINOPHEN 325 MG TABLET PO PRN ×3 (05:28→21:51)
[2021-01-23] MEDS: traMADol HCL HCL 50 MG TABLET (ULTRAM) PO SCH ×3 (06:12→17:21)
[2021-01-23] MEDS ORDERED: IPRATROPIUM/ALBUTEROL SULFATE 3 ML AMPUL.NEB (DUONEB) ONE ×2 (07:13→15:12)
[2021-01-23 08:30] VITALS: BP_SYST 111
[2021-01-23] MEDS: ASPIRIN 81 MG TAB.CHEW PO SCH (08:39)
[2021-01-23 12:44] VITALS: BP_SYST 115
[2021-01-23 16:10] VITALS: BP_SYST 138
[2021-01-23] MEDS: INSULIN LISPRO SLIDING SCALE 100 UNITS/ML VIAL (humaLOG) SUBCUT PRN ×2 (17:28→21:38)
[2021-01-23 20:00] VITALS: BP_SYST 130
[2021-01-23] MEDS: INSULIN GLARGINE 100 UNITS/ML 10 ML VIAL SUBCUT SCH (21:38)
[2021-01-23] MEDS ORDERED: cefTRIAXone 1 GM IVPB PREMIX 50 ML IV ONE (21:51)
[2021-01-23] MEDS: cefTRIAXone 1 GM IVPB PREMIX 50 ML IV SCH (21:55)
[2021-01-24] MEDS: traMADol HCL HCL 50 MG TABLET (ULTRAM) PO SCH ×4 (00:35→18:13)
[2021-01-24] MEDS: NACL 0.9% 1,000 ML IV SCH ×4 (00:38→22:35)
[2021-01-24] MEDS ORDERED: DEXTROSE 50% JECT 50 ML DISP.SYRIN IVP PRN (01:00)
[2021-01-24] MEDS ORDERED: GLUCOSE (DEXTROSE) ORAL GEL -Adults PO PRN (01:00)
[2021-01-24] MEDS ORDERED: GLUCOSE (DEXTROSE) ORAL GEL -Adults PO ONE (01:04)
[2021-01-24 02:09] VITALS: BP_SYST 141
[2021-01-24] MEDS: IPRATROPIUM/ALBUTEROL SULFATE 3 ML AMPUL.NEB (DUONEB) INH SCH ×6 (03:00→23:00)
[2021-01-24] MEDS: INSULIN LISPRO SLIDING SCALE 100 UNITS/ML VIAL (humaLOG) SUBCUT PRN ×4 (06:11→22:38)
[2021-01-24] MEDS: ASPIRIN 81 MG TAB.CHEW PO SCH (08:08)
[2021-01-24 08:09] VITALS: BP_SYST 113
[2021-01-24] MEDS: ACETAMINOPHEN 325 MG TABLET PO PRN (08:09)
[2021-01-24] MEDS ORDERED: ASPIRIN 81 MG TAB.CHEW ONE (08:38)
[2021-01-24] MEDS ORDERED: OXYBUTYNIN CHLORIDE 5 MG TABLET ONE (08:48)
[2021-01-24] MEDS ORDERED: HYDROcodone/ACETAMIN 5-325 MG TAB (NORCO/ VICODIN) ONE (08:48)
[2021-01-24] MEDS ORDERED: ENOXAPARIN SODIUM 40 MG/0.4 ML SYRINGE ONE (08:49)
[2021-01-24] MEDS ORDERED: amLODIPine BESYLATE 5 MG TABLET ONE (08:50)
[2021-01-24 12:00] VITALS: BP_SYST 111
[2021-01-24] MEDS: INSULIN GLARGINE 100 UNITS/ML 10 ML VIAL SUBCUT SCH (22:37)
[2021-01-24] MEDS ORDERED: cefTRIAXone 1 GM IVPB PREMIX 50 ML IV ONE (23:04)
[2021-01-24] MEDS: cefTRIAXone 1 GM IVPB PREMIX 50 ML IV SCH (23:16)
[2021-01-25] MEDS: traMADol HCL HCL 50 MG TABLET (ULTRAM) PO SCH ×3 (00:02→11:19)
[2021-01-25 00:31] VITALS: BP_SYST 111
[2021-01-25] MEDS ORDERED: MAG-AL HYDROX/SIMETH 30 ML UDC PO PRN (02:00)
[2021-01-25] MEDS: INSULIN LISPRO SLIDING SCALE 100 UNITS/ML VIAL (humaLOG) SUBCUT PRN ×2 (06:08→11:25)
[2021-01-25] MEDS: NACL 0.9% 1,000 ML IV SCH (06:58)
[2021-01-25] MEDS: IPRATROPIUM/ALBUTEROL SULFATE 3 ML AMPUL.NEB (DUONEB) INH SCH ×2 (07:00→11:09)
[2021-01-25 08:00] VITALS: BP_SYST 99
[2021-01-25 08:43] VITALS: BP_SYST 111
[2021-01-25] MEDS: ONDANSETRON HCL 4 MG/2 ML VIAL IVP PRN (09:06)
[2021-01-25] MEDS: ASPIRIN 81 MG TAB.CHEW PO SCH (09:06)
[2021-01-25] MEDS ORDERED: Nitrofurantoin Monohyd/M-Cryst PO (09:26)
[2021-01-25] MEDS ORDERED: NITROFURANTOIN MONOHYD/M-CRYST 100 MG CAPSULE (MacroBID) PO ONE (09:30)
[2021-01-25 11:24] VITALS: BP_SYST 113
[2021-01-25 13:48] VITALS: BP_SYST 113
[2021-01-25] MEDS ORDERED: NITROFURANTOIN MONOHYD/M-CRYST 100 MG CAPSULE (MacroBID) PO SCH (21:00)
== END 2021-01-25 15:20 | disposition home or self-care (01) | DRG 690 ==
LOC: SED 19:11 → SMU 22:45
PROVIDERS: ADMIT Internal Medicine Cardiovascular Disease; ATTEND Internal Medicine Cardiovascular Disease
DX: N39.0 Urinary tract infection, site not specified (principal); Z68.42 Body mass index [BMI] 45.0-49.9, adult; E11.9 Type 2 diabetes mellitus without complications; I10 Essential (primary) hypertension; Z20.822 Contact with and (suspected) exposure to COVID-19; E66.01 Morbid (severe) obesity due to excess calories; M54.9 Dorsalgia, unspecified; G89.4 Chronic pain syndrome; Z79.4 Long term (current) use of insulin; Z79.899 Other long term (current) drug therapy; I69.392 Facial weakness following cerebral infarction; Z79.82 Long term (current) use of aspirin; Z86.16 Personal history of COVID-19; Z90.710 Acquired absence of both cervix and uterus; Z98.84 Bariatric surgery status
CPT/HCPCS: 36415; 71045; 76376; 80053; 80061; 81000; 82150; 82962; 83036; 83690; 84443; 85025; 87040-TC; 87086; 93005; 94640; 94760; 96365; 96375; 96376; 99285; J0696; J1580; J1650; J1815; J1885; J2270; J2405; J7030; Q0163

== ENCOUNTER 2022-09-27 18:18 | Inpatient (IN) | payer BC ==
[~2022-09-27] VITALS: Ht 154.9 cm; Wt 95.7 kg
[~2022-09-27 18:18] MED LIST changes: -ALPR0.25 PO; -DICY10CA13 PO; -DIF100 PO; +LIRA0.6P2 SQ; +Nitrofurantoin Monohyd/M-Cryst PO; -OMEP40CA13 PO; -OXYC-128 PO; -POLY17PO4 PO; -SIME125C PO
[2022-09-27 19:29] VITALS: BP_SYST 137
[2022-09-27] MEDS ORDERED: PANTOPRAZOLE SODIUM 40 MG/VIAL (PROTONIX) IVP ONE (19:45)
[2022-09-27] MEDS ORDERED: NACL 0.9% 1,000 ML IV ONE (19:45)
[2022-09-27] MEDS ORDERED: ONDANSETRON HCL 4 MG/2 ML VIAL IVP ONE (19:45)
[2022-09-27 20:33] LABS: BASOPHILS # (AUTO) 0.1 K/uL (0.0-0.2); BASOPHILS % (AUTO) 0.6 % (0.0-2.0); EOSINOPHILS # (AUTO) 0.6 K/uL (0.0-0.4); EOSINOPHILS % (AUTO) 6.8 % (0.0-4.0); HEMATOCRIT 43.1 % (36-48); HEMOGLOBIN 14.6 g/dL (12.0-16.0); LYMPHOCYTES % (AUTO) 42.3 % (20.5-51.5); MEAN CORPUSCULAR HEMOGLOBIN 29 pg (27-31); MEAN CORPUSCULAR HGB CONC 34 % (32-36); MEAN CORPUSCULAR VOLUME 85 fL (79.0-98.0); MONOCYTES # (AUTO) 0.6 K/uL (0.0-1.0); MONOCYTES % (AUTO) 6.4 % (1.7-9.3); NEUTROPHILS # (AUTO) 4.2 K/uL (1.8-7.7); NEUTROPHILS % (AUTO) 43.9 % (40.0-70.0); PLATELET COUNT (AUTO) 209 K/uL (130-430); RED BLOOD CELL COUNT(AUTO) 5.06 MIL/uL (4.2-6.2); RED CELL DISTRIBUTION WIDTH 12.9 % (9.0-15.0); WHITE BLOOD COUNT (AUTO) 9.6 K/uL (4.8-10.8)
[2022-09-27 20:42] LABS: CREATININE 0.53 mg/dL (0.55-1.30)
[2022-09-27 20:47] LABS: ALBUMIN 3.3 g/dL (3.4-4.8); TOTAL BILIRUBIN 0.5 mg/dL (0.0-1.0)
--- NOTE | 2022-09-27 21:00 | NUR ---
First contact with the pt. AAO x4, VSS, RR even and unlabored. Here with epigastric pain, dizziness. bdark blood emesis. Safety measures in place.
[2022-09-27 21:11] LABS: BILIRUBIN,URINE NEGATIVE (NEGATIVE); COLOR,URINE YELLOW (YELLOW); GLUCOSE,URINE 3+ (NEGATIVE); KETONES,URINE 2+ (NEGATIVE); LEUKOCYTE ESTERASE ,URINE NEGATIVE (NEGATIVE); NITRITE, URINE NEGATIVE (NEGATIVE); PROTEIN URINE NEGATIVE (NEGATIVE); UROBILINOGEN,URINE 0.2 (0.2-1.0)
[2022-09-27 21:12] LABS: BLOOD, URINE TRACE (NEGATIVE); CLARITY/URINE HAZY (CLEAR)
[2022-09-27 21:18] LABS: BACTERIA,URINE FEW /HPF (None Seen); MUCUS,URINE None Seen /LPF (None Seen); RBC,URINE 0-3 /HPF (0-3); WBC,URINE 50-80 /HPF (0-3)
[2022-09-27] MEDS ORDERED: MAG-AL HYDROX/SIMETH 30 ML UDC PO ONE (22:00)
--- NOTE | 2022-09-27 22:30 | NUR ---
To CT via stretcher
--- NOTE | 2022-09-27 22:30 | NUR ---
ESTEE Arellano samples sent to the lab.
[2022-09-27] MEDS ORDERED: cefTRIAXone 1 GM IVPB PREMIX 50 ML IV ONE (23:00)
--- NOTE | 2022-09-28 00:05 | NUR ---
Admit bed requested Patient will be admitted to care of Dr HAGAN Admitted to TELE unit. Diagnosis UPPER gi BLEED, cp Inpatient YES Observation NO Orientation concerns or request close to nursing station NO Covid Status nEGATIVE On vent or bipap NO Isolation requirements NO Needs a sitter NO From Home NO Requires Dialysis NO Med Rec Completed YES
[2022-09-28] MEDS ORDERED: FAMO40TA7 PO (00:22)
[2022-09-28] MEDS ORDERED: METR-154 PO (00:23)
[2022-09-28] MEDS ORDERED: GABA-529 PO (00:24)
[2022-09-28] MEDS ORDERED: HYDR12.55 PO (00:33)
[2022-09-28 01:22] VITALS: BP_SYST 116
--- NOTE | 2022-09-28 01:22 | NUR ---
ADMISSION NOTE Received patient from ER via gurney endorsed by Sindhu nurse at bedside. Patient admitted with diagnosis of upper GI bleed. Patient is awake, alert, oriented X 4. Patient oriented to hospital room, call light, toileting, pain management and safety-teach back done. Patient informed that I Keely) will be her nurse and that their room number is 114-A. Informed pt that md ordered NPO status inclusing no food or water at all and discussed poc,pt verbalized understanding. Pt has slight rt side weakness. Pt stated that she feel dizziness and uses a walker at home but broken now. Informed pt not to get OOB by self, to use call light for assistance, pt verbalized understanding. Iv site of RAC patent after flushed w/ NS noted. Personal belongings checked and Belongings List documented. Confirmed name, , MR ID number, and telemetry box number with Pancho prior places telemetry electrodes on pt. Call light within reach,side rails x3, bed alarmed. Cont to monitor pt.
[2022-09-28 01:45] VITALS: BP_SYST 116
--- NOTE | 2022-09-28 02:00 | NUR ---
NOTES; CALLED ER UNIT AND ASKED FOR JEFF NURSE WHO TOOK PT TO ROOM 114-A, BUT FRANCK- NURSE STATED SHE IS ON LUNCH NOW AND WILL HAVE HER TO CALL BACK REGARDING IF SHE GIVES ROCEPHIN IV YET. Addendum: 09/28/22 at 0226 by [facility], AMOS RN ADDITIONAL NOTES; JEFF STEVEN CALLED BACK AND SHE STATED THAT SHE DIDN'T GIVE YET THAT SCHEDULED AT 2300. [facility]PHIN [facility]
[2022-09-28] MEDS ORDERED: cefTRIAXone 1 GM IVPB PREMIX 50 ML IV ONE (02:42)
--- NOTE | 2022-09-28 06:24 | NUR ---
CLOSING NOTES; -Pt is resting in bed comfortably. NO s/s any acute distress noted. IV site patent drsg cdi. All safety measures in place. Pt's condition stable. Will endorse to next nurse to cont care.
--- NOTE | 2022-09-28 07:06 | NUR ---
NOTES; BLOOD DIXHH=[id number] AND PT IS STILL NPO -Will endorse to day shift nurse to call md if want to order accucheck and ssi coverage bc pt is DM.
[2022-09-28] MEDS ORDERED: DOCUSATE SODIUM 100 MG CAPSULE PO PRN (07:15)
[2022-09-28] MEDS ORDERED: POTASSIUM CHLORIDE 20 MEQ TAB.PRT.SR PO PRN (07:15)
[2022-09-28] MEDS ORDERED: MORPHINE 2 MG/ML INJ. SYRINGE IVP PRN ×3 (07:15)
[2022-09-28] MEDS ORDERED: ONDANSETRON HCL 4 MG/2 ML VIAL IVP PRN (07:15)
[2022-09-28] MEDS ORDERED: MAGNESIUM SULFATE 50 ML IV PRN (07:15)
[2022-09-28] MEDS ORDERED: DEXTROSE 50% JECT 50 ML DISP.SYRIN IVP PRN (07:15)
[2022-09-28] MEDS ORDERED: ACETAMINOPHEN 325 MG TABLET PO PRN ×2 (07:15→07:30)
[2022-09-28] MEDS ORDERED: MUPIROCIN 2% TOPICAL OINTMENT 22 GM NS PRN (07:15)
[2022-09-28] MEDS: GABAPENTIN 100 MG CAPSULE PO SCH ×3 (09:00→21:40)
[2022-09-28] MEDS: PANTOPRAZOLE SODIUM 40 MG/VIAL (PROTONIX) IVP SCH (09:09)
[2022-09-28] MEDS: INSULIN LISPRO SLIDING SCALE 100 UNITS/ML, 3 ML VIAL (humaLOG) SUBCUT PRN ×2 (09:16→21:49)
--- NOTE | 2022-09-28 10:48 | NUR ---
CONSULTATION PAGED/CALLED Reason for Consultation: [] Person Who was Notified: [] Consulting Physician: [] Personnel Monitor Specialty: [] Ordering Physician: []
--- NOTE | 2022-09-28 10:50 | NUR ---
CONSULTATION PAGED/CALLED Reason for Consultation: POSSIBLE GI BLEED Person Who was Notified: ANGEL Consulting Physician: DR. LOPEZ [employer] Consultant Specialty: GASTROINTESTINAL Ordering Physician: DR. HAGAN
[2022-09-28 11:40] VITALS: BP_SYST 104
[2022-09-28] MEDS: NACL 0.9% 1,000 ML IV SCH ×3 (12:35→21:43)
--- NOTE | 2022-09-28 12:42 | NUR ---
Blood sugar has decreased significantly from 336 to 190. Miss Beebe remains NPO. insulin coverage will be held until ater EGD and with dinner time recheck.
[2022-09-28] MEDS ORDERED: MEPERIDINE 50 MG/ML VIAL ONE (15:46)
--- NOTE | 2022-09-28 16:00 | NUR ---
Terri Beebe leaves unit to EGD procedure
[2022-09-28] MEDS: MIDAZOLAM HCL 5 MG/5 ML VIAL ONE ×2 (16:57→17:03)
[2022-09-28 18:00] VITALS: BP_SYST 90
--- NOTE | 2022-09-28 18:00 | NUR ---
Miss Beebe returns to the unit she has arrived to room 111-A. She has tolerated the EGD well. She is resting quietly
[2022-09-28 18:15] VITALS: BP_SYST 124
--- NOTE | 2022-09-28 18:45 | NUR ---
Miss Beebe has been assessed as indicated. She continues to c/o burning to her throat. She has completed the EGD exam and tolerated it well. Her is at the bedside. She has been visited by 2 of her daughters. She has been provided dinner and is resting quietly
--- NOTE | 2022-09-28 19:15 | NUR ---
Handoff has been given to Glenda
[2022-09-28 20:00] VITALS: BP_SYST 109
[2022-09-29 00:44] VITALS: BP_SYST 120
[2022-09-29] MEDS: INSULIN LISPRO SLIDING SCALE 100 UNITS/ML, 3 ML VIAL (humaLOG) SUBCUT PRN (06:53)
[2022-09-29] MEDS: NACL 0.9% 1,000 ML IV SCH (06:54)
[2022-09-29 07:07] LABS: BASOPHILS % (AUTO) 0.5 % (0.0-2.0); EOSINOPHILS # (AUTO) 0.6 K/uL (0.0-0.4); EOSINOPHILS % (AUTO) 7.2 % (0.0-4.0); HEMATOCRIT 37.6 % (36-48); HEMOGLOBIN 13.1 g/dL (12.0-16.0); LYMPHOCYTES # (AUTO) 3.3 K/uL (1.0-5.5); LYMPHOCYTES % (AUTO) 37.3 % (20.5-51.5); MEAN CORPUSCULAR HEMOGLOBIN 29 pg (27-31); MEAN CORPUSCULAR HGB CONC 35 % (32-36); MEAN CORPUSCULAR VOLUME 83 fL (79.0-98.0); MONOCYTES # (AUTO) 0.4 K/uL (0.0-1.0); MONOCYTES % (AUTO) 4.2 % (1.7-9.3); NEUTROPHILS # (AUTO) 4.5 K/uL (1.8-7.7); NEUTROPHILS % (AUTO) 50.8 % (40.0-70.0); PLATELET COUNT (AUTO) 173 K/uL (130-430); RED BLOOD CELL COUNT(AUTO) 4.56 MIL/uL (4.2-6.2); WHITE BLOOD COUNT (AUTO) 8.9 K/uL (4.8-10.8)
[2022-09-29 07:29] LABS: CREATININE 0.43 mg/dL (0.55-1.30)
--- NOTE | 2022-09-29 08:00 | NUR ---
Miss Beebe has been assessed as indicated. She is resting quietly. She states that she still has heartburn. she requested dry toast as a remedy. This was given and she stated it provided relief. She ambulates to the restroom with a walker independently. She has no s/s of distress or discomfort
[2022-09-29] MEDS ORDERED: PRO40 PO (09:01)
[2022-09-29] MEDS: GABAPENTIN 100 MG CAPSULE PO SCH (10:12)
[2022-09-29] MEDS: PANTOPRAZOLE SODIUM 40 MG/VIAL (PROTONIX) IVP SCH (10:12)
[2022-09-29] MEDS ORDERED: MAG-AL HYDROX/SIMETH 30 ML UDC PO PRN (10:15)
[2022-09-29 12:10] VITALS: BP_SYST 98
--- NOTE | 2022-09-29 13:00 | NUR ---
Miss Beebe has been DC to home IV access has been removed. Printed DC instructions were provided in Sinhala and Occitan. They were reviewed with her and her daughter Annette. They both asked questions or clarification and were able to explain the instructions back to this designer writer. She did sign a document to indicate that the instructions have been reviewed with her. She was escorted to the front door via WC and driven home by her daughter Annette
[2022-09-29] MEDS ORDERED: SUCRALFATE 1 GM TABLET PO SCH (17:00)
== END 2022-09-29 13:00 | disposition home or self-care (01) | DRG 381 ==
LOC: SED 18:18 → STU 23:53
PROVIDERS: ADMIT Family Medicine; ATTEND Family Medicine
PROC: 0DB78ZX Excision of Stomach, Pylorus, Via Natural or Artificial Opening Endoscopic, Diagnostic (ICD-10-PCS; 2022-09-28)
PROC: 0DB58ZX Excision of Esophagus, Via Natural or Artificial Opening Endoscopic, Diagnostic (ICD-10-PCS; principal; 2022-09-28 16:20)
DX: K22.11 Ulcer of esophagus with bleeding (principal); E44.1 Mild protein-calorie malnutrition; I69.351 Hemiplegia and hemiparesis following cerebral infarction affecting right dominant side; E87.1 Hypo-osmolality and hyponatremia; I10 Essential (primary) hypertension; E11.9 Type 2 diabetes mellitus without complications; J45.909 Unspecified asthma, uncomplicated; Z20.822 Contact with and (suspected) exposure to COVID-19; E87.8 Other disorders of electrolyte and fluid balance, not elsewhere classified; R74.01 Elevation of levels of liver transaminase levels; E66.9 Obesity, unspecified; K44.9 Diaphragmatic hernia without obstruction or gangrene; K29.70 Gastritis, unspecified, without bleeding; Z87.440 Personal history of urinary (tract) infections; Z88.8 Allergy status to other drugs, medicaments and biological substances; Z91.012 Allergy to eggs; Z79.899 Other long term (current) drug therapy; Z79.4 Long term (current) use of insulin; Z68.39 Body mass index [BMI] 39.0-39.9, adult
CPT/HCPCS: 36415; 43239; 71045; 76376; 80048; 80053; 81000; 82962; 83690; 83735; 84484; 84703; 85025; 87081; 87086; 88305; 88312; 88313; 96361; 96374; 96375; 99285; C9113; G0378; J0696; J2175; J2250; J2405; Q9967

== ENCOUNTER 2023-04-01 22:26 | Emergency (ER) | payer BC ==
[~2023-04-01] VITALS: Ht 154.9 cm; Wt 90.7 kg
[~2023-04-01 22:26] MED LIST changes: -ASA81 PO; +FAMO40TA7 PO; +GABA-529 PO; +HYDR12.55 PO; -HYDR25TA4 PO; +METR-154 PO; -Nitrofurantoin Monohyd/M-Cryst PO; +PRO40 PO
[2023-04-01 22:43] VITALS: BP_SYST 97; PULSE 104; RESP 20; TEMP 99.5; O2SAT 95
[2023-04-01] MEDS ORDERED: ASPIRIN 325 MG TABLET (ECOTRIN) PO ONE (23:15)
[2023-04-01] MEDS ORDERED: NITROGLYCERIN 1 INCH (GM) OINT. TP ONE (23:15)
[2023-04-01] MEDS ORDERED: MORPHINE 4 MG INJ. 4 MG/ML VIAL IVP ONE (23:15)
[2023-04-02 00:18] LABS: BASOPHILS # (AUTO) 0.1 K/uL (0.0-0.2); BASOPHILS % (AUTO) 0.7 % (0.0-2.0); EOSINOPHILS # (AUTO) 0.4 K/uL (0.0-0.4); EOSINOPHILS % (AUTO) 4.3 % (0.0-4.0); HEMATOCRIT 40.8 % (36-48); HEMOGLOBIN 13.9 g/dL (12.0-16.0); LYMPHOCYTES # (AUTO) 3.5 K/uL (1.0-5.5); LYMPHOCYTES % (AUTO) 41.8 % (20.5-51.5); MEAN CORPUSCULAR HEMOGLOBIN 28 pg (27-31); MEAN CORPUSCULAR HGB CONC 34 % (32-36); MEAN CORPUSCULAR VOLUME 83 fL (79.0-98.0); MONOCYTES # (AUTO) 0.7 K/uL (0.0-1.0); MONOCYTES % (AUTO) 8.3 % (1.7-9.3); NEUTROPHILS # (AUTO) 3.8 K/uL (1.8-7.7); NEUTROPHILS % (AUTO) 44.9 % (40.0-70.0); PLATELET COUNT (AUTO) 200 K/uL (130-430); RED BLOOD CELL COUNT(AUTO) 4.93 MIL/uL (4.2-6.2); RED CELL DISTRIBUTION WIDTH 13.4 % (9.0-15.0); WHITE BLOOD COUNT (AUTO) 8.5 K/uL (4.8-10.8)
[2023-04-02 00:29] LABS: ANION GAP 8 (5-15); CALCIUM 8.6 mg/dL (8.4-11.0); CHLORIDE 103 mmol/L (98-107); CREATININE 0.58 mg/dL (0.55-1.30); GFR AFRICAN AMERICAN 140 mL/min (>90); GLUCOSE 119 mg/dL (74-106); UREA NITROGEN, BLOOD 14 mg/dL (8-21)
[2023-04-02 00:36] LABS: ALANINE AMINOTRANSFERASE 19 U/L (12-78); ALBUMIN 3.3 g/dL (3.4-4.8); ASPARTATE AMINOTRANSFERASE 16 U/L (10-37); TOTAL BILIRUBIN 0.4 mg/dL (0.0-1.0)
[2023-04-02 02:51] VITALS: BP_SYST 138; PULSE 81; RESP 20; TEMP 98.9; O2SAT 95
== END 2023-04-02 02:51 | disposition home or self-care (01) ==
LOC: SED 22:26
DX: R07.89 Other chest pain (principal); E11.9 Type 2 diabetes mellitus without complications; I10 Essential (primary) hypertension; Z79.899 Other long term (current) drug therapy; Z79.4 Long term (current) use of insulin; Z91.012 Allergy to eggs; Z88.8 Allergy status to other drugs, medicaments and biological substances
CPT/HCPCS: 99284; 71045; 80053; 82962; 83880; 85025; 85379; 84484; 36415; 96374; J2270

== ENCOUNTER 2023-12-07 22:08 | Emergency (ER) | payer BC ==
[~2023-12-07] VITALS: Ht 154.9 cm; Wt 86.2 kg
[~2023-12-07 22:08] MED LIST changes: +ACET-2634 PO; +ANT30 PO
[2023-12-07 22:18] VITALS: BP_SYST 125; PULSE 89; RESP 18; TEMP 98.1; O2SAT 99
[2023-12-08] MEDS ORDERED: NAPR-1172 PO (02:21)
[2023-12-08] MEDS: KETOROLAC TROMETHAMINE 60 MG/2 ML VIAL IM ONE (02:42)
== END 2023-12-08 02:52 | disposition home or self-care (01) ==
LOC: SED 22:08
DX: S83.92XA Sprain of unspecified site of left knee, initial encounter (principal); E11.9 Type 2 diabetes mellitus without complications; I11.0 Hypertensive heart disease with heart failure; I50.9 Heart failure, unspecified; Z91.012 Allergy to eggs; Z88.8 Allergy status to other drugs, medicaments and biological substances; Z79.4 Long term (current) use of insulin; Z79.899 Other long term (current) drug therapy; W01.0XXA Fall on same level from slipping, tripping and stumbling without subsequent striking against object, initial encounter; Y93.89 Activity, other specified; Y92.89 Other specified places as the place of occurrence of the external cause; Y99.8 Other external cause status
CPT/HCPCS: 99283; 73560; 96372; J1885